=== PATIENT | female | born 1980 | race African-American/Black ===

== ENCOUNTER 2019-07-29 10:03 | Emergency (ER) | payer OTHER, SELFPAY ==
[2019-07-29 10:14] VITALS: BP 131/90; PULSE 92; RESP 16; TEMP 36.3; O2SAT 100
[2019-07-29 10:24] VITALS: O2SAT 99
--- NOTE | 2019-07-29 10:56 | PC.NURSE ---
Report given to oncoming RN, no questions at that time.
--- NOTE | 2019-07-29 12:22 | ED.GENADULT ---
HPI - General Adult General Chief complaint: Upper Respiratory Infection <ANDRÉS Lynne Last Filed: 07/29/19 12:32> Stated complaint: congestion <ANDRÉS Lynne Last Filed: 07/29/19 12:32> Time Seen by Provider: 07/29/19 11:07 <ANDRÉS Lynne Last Filed: 07/29/19 12:32> Source: patient <ANDRÉS Lynne Last Filed: 07/29/19 12:32> Mode of arrival: ambulatory <ANDRÉS Lynne Last Filed: 07/29/19 12:32> Limitations: no limitations <ANDRÉS Lynne Last Filed: 07/29/19 12:32> History of Present Illness HPI narrative: Patient is a 39-year-old female who presents to emergency department for evaluation of congestion rhinorrhea ear pain and sneezing has been present now for the last 2 weeks took amoxicillin initially completed half the course went back to a different care center and is now currently on doxycycline and has 7 days left patient on arrival to emergency department notes some frontal sinus pressure and right ear discomfort denies other URI symptoms or complaints and on arrival to emergency department is in the room in no distress patient denies sick contacts <ANDRÉS Lynne Last Filed: 07/29/19 12:32> Related Data Home medications: Home Medications Medication Instructions Recorded Confirmed amlodipine 07/29/19 doxycycline hyclate 07/29/19 ergocalciferol (vitamin D2) 07/29/19 hydrochlorothiazide 07/29/19 levothyroxine 07/29/19 loratadine mg 07/29/19 oxybutynin chloride 07/29/19 <ANDRÉS Lynne Last Filed: 07/29/19 12:32> Allergies/adverse reactions: Allergies Allergy/AdvReac Type Severity Reaction Status Date / Time No Known Allergies Allergy Unknown Verified 07/29/19 10:21 <ANDRÉS Lynne Last Filed: 07/29/19 12:32> Review of Systems Review of Systems: All systems reviewed & are unremarkable except as noted in HPI and below <ANDRÉS Lynne Last Filed: 07/29/19 12:32> PMFSH Past Medical History Medical History: Medical History (Updated 07/29/19 @ 12:32 by Douglas Chung PA-C) Hypertension <Douglas Chung PA-C - Last Filed: 07/29/19 12:32> Social History Social History: Social History (Updated 07/29/19 @ 12:29 by Douglas Chung PA-C) Smoking status: Never smoker Gender identity (if verbalized by the patient): Female <Douglas Chung PA-C - Last Filed: 07/29/19 12:32> Exam Narrative: Exam Narrative: GENERAL: Well-appearing, well-nourished, and in no acute distress. HEAD: Normocephalic, atraumatic. EYES: PERRLA and EOMI. ENT: Nares clear, no rhinorrhea or epistaxis. Mucous membranes moist. Oropharynx without tonsillar hypertrophy exudate or other lesions. Bilateral TMs pearly cheema nonbulging CHEST: Clear to auscultation. No respiratory distress. No wheezes rales or rhonchi HEART: Regular rate and rhythm. No murmur heard. EXTREMITIES: Normal range of motion. No edema. SKIN: Warm, dry, no rash. NEURO: No focal deficits. Alert and oriented x3. Cranial nerves II through XII grossly intact PSYCH: Normal mood and affect. <Douglas Chung PA-C - Last Filed: 07/29/19 12:32> Course Course Emergency Course: Patient in the room in no distress aware of case findings treatment plan and diagnosis agreeing to follow-up as directed or to return if symptoms worsen or concerns <Douglas Chung PA-C - Last Filed: 07/29/19 12:32> Vital Signs Vital signs: Vital Signs Temperature 97.3 F L 07/29/19 10:14 Pulse Rate 92 07/29/19 10:14 Respiratory Rate 16 07/29/19 10:14 Blood Pressure 131/90 07/29/19 10:14 Pulse Oximetry 100 07/29/19 10:14 Temperature 97.3 F L 07/29/19 10:14 Pulse Rate 73 07/29/19 12:34 Respiratory Rate 18 07/29/19 12:34 Blood Pressure 115/88 07/29/19 12:34 Pulse Oximetry 100 07/29/19 12:34 <Douglas Chung PA-C - Last Filed: 07/29/19 12:32>
[2019-07-29 12:34] VITALS: BP 115/88; PULSE 73; RESP 18; O2SAT 100
== END 2019-07-29 12:39 | disposition home or self-care (01) ==
PROVIDERS: Emergency Provider General Practice; PCP Internal Medicine
DX: J32.9 Chronic sinusitis, unspecified (principal); I10 Essential (primary) hypertension
CPT/HCPCS: 99283

== ENCOUNTER 2019-11-16 16:04 | Emergency (ER) | payer OTHER, SELFPAY ==
[2019-11-16] VITALS (15 sets, daily range): BP systolic 112–151; BP diastolic 72–101; PULSE 67–120; RESP 15–20; TEMP 37.2; O2SAT 98–100
--- NOTE | ~2019-11-16 | XR_ITS ---
EXAMINATION: XR chest 2V DATE: 11/16/2019 16:57 INDICATION: Chest pressure TECHNIQUE: PA and lateral views of the chest are obtained. COMPARISON: 09/08/2008 FINDINGS: The lungs are free of acute opacities. There is no pleural effusion or pneumothorax. The ca rdiomediastinal silhouette is normal. The visualized bones and soft tissues are unremarkable. IMPRESSION: 1. No acute cardiopulmonary abnormality. Reviewed, dictated and finalized at location B.
--- NOTE | 2019-11-16 16:14 | ECG_ITS ---
Measurements Intervals [place] Rate: 106 P: 44 [place]: 160 QRS: 29 QRSD: 99 T: 12 QT: 346 QTc: 460 Interpretive Statements SINUS TACHYCARDIA DELAYED PRECORDIAL R/S TRANSITION BORDERLINE T WAVE ABNORMALITY- DIFFUSE LEADS BASELINE ARTIFACT- AVR, AVF, V3 ABNORMAL ECG Electronically Signed On 11-17-2019 10:16:11 CDT by Preston Edwards D.O.
[2019-11-16 16:24] LABS: Basophils Percent Auto 0.6 % (0.2-1.2); Eosinophils Percent Auto 0.3 % (0-4.4); Hematocrit 36.8 % (37.0-47.0); Hemoglobin 11.7 g/dL (12.0-15.0); Lymphocytes Absolute Auto 2.13 K/mm3 (0.9-3.2); Lymphocytes Percent Auto 33.5 % (18.3-44.2); Mean Corpuscular HGB Conc 31.8 g/dl (32-36); Mean Corpuscular Hemoglobin 26.1 pg (26-34); Mean Corpuscular Volume 82.1 fl (80-100); Mean Platelet Volume 11.4 fl (7.4-10.4); Monocytes Absolute Auto 0.3 K/mm3 (0.1-0.6); Monocytes Percent Auto 5.2 % (2.6-8.5); Neutrophils Absolute Auto 3.8 K/mm3 (1.3-6.7); Neutrophils Percent Auto 60.4 % (45.5-73.1); Platelet Count Result 277 k/mm3 (150-375); Red Blood Count 4.48 M/mm3 (4.2-5.4); Red Cell Distribution Width 15.9 % (11.5-14.5); White Blood Count 6.4 K/mm3 (4.5-10.0)
[2019-11-16 16:35] LABS: INR 1.1; Prothrombin Time 13.5 Seconds (11.1-14.7)
[2019-11-16 16:37] LABS: Anion Gap 9 mmol/L (8-16); Blood Urea Nitrogen 12 mg/dL (7-17); Calcium 8.9 mg/dL (8.4-10.2); Carbon Dioxide 27 mmol/L (22-30); Chloride 102 mmol/L (98-107); Estimated CRCL calculation 89 ml/min; Estimated Glomerular Filt Rate > 60; Glucose 94 mg/dL (65-105); Potassium 3.8 mmol/L (3.4-5.0); Sodium 138 mmol/L (137-145)
[2019-11-16 16:49] LABS: Troponin I < 0.012 ng/mL (0.000-0.034)
[2019-11-16 16:51] LABS: Anisocytosis 2+ (NORMAL); Hypochromasia 1+ (NORMAL); Platelet Estimate Adequate (Adequate)
--- NOTE | 2019-11-16 17:34 | ED.CHESTPAIN ---
HPI - Chest Pain General Chief Complaint: Chest Pain Stated Complaint: shaky, blurred vision Time Seen by Provider: 11/16/19 16:27 Source: patient Mode of arrival: ambulatory Limitations: no limitations History of Present Illness HPI narrative: This patient is a 39 year old female who presents for evaluation of intermittent chest heaviness. She reports she has midsternal nonradiating chest pressure. She states it feels like her GERD that she normally has. She states she was taking omeprazole but she is not taking because her insurance will not cover it. She reports this pain occurs randomly. She denies any chest pain or heaviness now. Her pain is worse with eating. She denies exertional pain. She denies sob, nausea or vomiting. She does report intermittent shakiness. 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] 60 mg PO 11/16/19 Allergies Allergy/AdvReac Type Severity Reaction Status Date / Time No Known Allergies Allergy Unknown Verified 11/16/19 16:15 Review of Systems Review of Systems: All systems reviewed & are unremarkable except as noted in HPI and below Constitutional: Constitutional: Denies chills and Denies fever(s) Cardiovascular: Cardiovascular: Reports chest pain and Denies radiating jaw, neck or arm pain Respiratory: Respiratory: Denies cough and Denies dyspnea Gastrointestinal: Gastrointestinal: Denies abdominal pain, Denies nausea and Denies vomiting Psychiatric: Psychiatric: Reports anxiety PMFSH Past Medical History Medical History (Updated 11/16/19 @ 19:48 by Vicky Gibson MD) Hypertension Hypothyroid Social History Social History (Updated 07/29/19 @ 12:29 by Douglas Chung PA-C) Smoking status: Never smoker Gender identity (if verbalized by the patient): Female Exam Narrative: Exam Narrative: GENERAL: Well-appearing, well-nourished, and in no acute distress. HEAD: Normocephalic, atraumatic EYES: PERRLA and EOMI, THROAT:Mucous membranes moist, Oropharynx normal without erythema, exudate, peritonsillar swelling or fluctuance NECK: Supple, without lymphadenopathy or mass RESPIRATORY: No respiratory distress, Airway patent, Respirations non-labored, Clear to auscultation without rales, rhonchi or wheeze HEART: Regular rate and rhythm. No murmur heard. Normal peripheral pulses. ABDOMEN: Soft, nontender, nondistended, normal active bowel sounds. No masses. No rebound or guarding, No organomegaly. EXTREMITIES: No edema, normal strength with full range of motion. SKIN: Warm, dry, normal color without rash NEURO: Alert and oriented x3. CN 2-12 grossly intact. No focal deficits. PSYCH: Normal mood and affect. Course Vital Signs Vital signs: Vital Signs Temperature 98.9 F 11/16/19 16:09 Pulse Rate 115 H 11/16/19 16:09 Respiratory Rate 20 11/16/19 16:09 Blood Pressure 112/72 11/16/19 16:09 Pulse Oximetry 100 11/16/19 16:09 Temperature 98.9 F 11/16/19 16:09 Pulse Rate 74 11/16/19 17:46 Respiratory Rate 17 11/16/19 17:46 Blood Pressure 116/84 11/16/19 17:46 Pulse Oximetry 99 11/16/19 17:46 MDM - Chest Pain Lab Data Attestation: I reviewed the patient's lab results. Result diagrams: 11/16/19 16:18 11/16/19 16:18 Labs: Lab Results 11/16/19 11/16/19 11/16/19 Range/Units 16:18 16:18 16:18 WBC 6.4 (4.5-10.0) K/mm3 RBC 4.48 (4.2-5.4) M/mm3 Hgb 11.7 L (12.0-15.0) g/dL Hct 36.8 L (37.0-47.0) % MCV 82.1 (80-100) fl MCH 26.1 (26-34) pg MCHC 31.8 L (32-36) g/dl RDW 15.9 H (11.5-14.5) % Plt Count 277 (150-375) k/mm3 MPV 11.4 H (7.4-10.4) fl Immature Gran % (Auto) 0.0 (0-0.5) % Neut % (Auto) 60.4 (45.5-73.1) % Lymph % (Auto)
--- NOTE | 2019-11-16 17:43 | PC.NURSE ---
Called lab to add TITUS
[2019-11-16 17:53] LABS: D Dimer 0.27 ug/mL (<0.48)
[2019-11-16 19:35] LABS: Troponin I < 0.012 ng/mL (0.000-0.034)
== END 2019-11-16 20:01 | disposition home or self-care (01) ==
PROVIDERS: Emergency Medicine; Emergency Provider General Practice
DX: R07.89 Other chest pain (principal); R00.0 Tachycardia, unspecified; I10 Essential (primary) hypertension; E03.9 Hypothyroidism, unspecified
CPT/HCPCS: 36415; 71046; 80048; 84484; 85025; 85380; 85610; 85730; 93005; 99284

== ENCOUNTER 2019-12-09 18:21 | Emergency (ER) | payer OTHER, SELFPAY ==
[2019-12-09 18:23] VITALS: BP 132/99; PULSE 110; RESP 16; TEMP 36.9; O2SAT 100
[2019-12-09 18:52] LABS: Basophils Percent Auto 0.5 % (0.2-1.2); Eosinophils Percent Auto 0.4 % (0-4.4); Hematocrit 36.9 % (37.0-47.0); Hemoglobin 11.7 g/dL (12.0-15.0); Immature Granulocyte Absolute 0.02 K/mm3 (0.00-0.031); Immature Granulocyte Percent A 0.3 % (0-0.5); Lymphocytes Absolute Auto 2.26 K/mm3 (0.9-3.2); Lymphocytes Percent Auto 30.7 % (18.3-44.2); Mean Corpuscular HGB Conc 31.7 g/dl (32-36); Mean Corpuscular Hemoglobin 26.1 pg (26-34); Mean Corpuscular Volume 82.2 fl (80-100); Mean Platelet Volume 11.1 fl (7.4-10.4); Monocytes Absolute Auto 0.4 K/mm3 (0.1-0.6); Neutrophils Absolute Auto 4.6 K/mm3 (1.3-6.7); Neutrophils Percent Auto 62.1 % (45.5-73.1); Platelet Count Result 288 k/mm3 (150-375); Red Blood Count 4.49 M/mm3 (4.2-5.4); Red Cell Distribution Width 16.1 % (11.5-14.5); White Blood Count 7.4 K/mm3 (4.5-10.0)
[2019-12-09 19:00] LABS: Add Urine Microscopic? YES; Appearance Urine Cloudy (Clear); Bacteria Urine 1+ /hpf; Bilirubin Urine Negative (Negative); Color Urine Amber (Yellow); Glucose Urine UA Negative (Negative); Ketones Urine Trace mg/dL (Negative); Leukocyte Esterase Ur 3+ LEU/UL (Negative); Mucus Urine Rare /lpf; Nitrate Urine Negative (Negative); Protein Urine 2+ mg/dL (Negative); Squamous Epithelial Cell Urine Many /hpf (Few); Urobilinogen Urine Negative mg/dL (<2.0); WBC Urine >75 /hpf
[2019-12-09 19:01] LABS: Alanine Aminotransferase 8 U/L (4-35); Albumin Level 4.5 g/dL (3.5-5.1); Alkaline Phosphatase 77 U/L (38-126); Anion Gap 9 mmol/L (8-16); Aspartate Amino Transferase 18 U/L (14-36); Bilirubin,Total 0.9 mg/dL (0.2-1.3); Blood Urea Nitrogen 13 mg/dL (7-17); Calcium 9.4 mg/dL (8.4-10.2); Carbon Dioxide 27 mmol/L (22-30); Chloride 105 mmol/L (98-107); Estimated CRCL calculation 89 ml/min; Estimated Glomerular Filt Rate > 60; Glucose 94 mg/dL (65-105); Lipase 48 U/L (23-300); Potassium 3.8 mmol/L (3.4-5.0); Sodium 141 mmol/L (137-145)
[2019-12-09 19:03] LABS: Blood Urine Negative (Negative); Specific Grav Ur 1.031 (1.001-1.035)
[2019-12-09] MEDS: ONDANSETRON INJ 4 MG/2 ML VIAL IV PUSH (19:46)
[2019-12-09] MEDS: SODIUM CHLORIDE 0.9% IV 1,000 ML 999 ML IV CONT (19:46)
--- NOTE | 2019-12-09 19:55 | ED.ABDPAIN ---
HPI - Abdominal Pain General Chief Complaint: Abdominal Pain Stated Complaint: Abd Pain Time Seen by Provider: 12/09/19 19:04 History of Present Illness HPI narrative: Patient is a 39-year-old female who presents ER with some mild abdominal discomfort. It's periumbilical. Associated with nausea. She notes that she has some dark urine that is abnormal for her. No dysuria or fevers or chills or sweats. She is without flank pain. Patient also reports 2 episodes of diarrhea per day for last 2 days. 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 [employer] Thyroid] 60 mg PO 11/16/19 Allergies Allergy/AdvReac Type Severity Reaction Status Date / Time No Known Allergies Allergy Unknown Verified 12/09/19 18:34 Review of Systems Constitutional: Constitutional: Denies chills, Denies fever(s) and Reports weakness Respiratory: Respiratory: Denies cough and Denies dyspnea Gastrointestinal: Gastrointestinal: Reports abdominal pain, Reports diarrhea, Reports nausea and Denies vomiting Genitourinary: Genitourinary: Denies nocturia, Denies dysuria and Denies flank pain Comments: Dark urine PMFSH Past Medical History Medical History (Updated 12/09/19 @ 19:57 by Shmuel Qureshi MD) Hypertension Hypothyroid Social History Social History (Updated 07/29/19 @ 12:29 by Douglas Chung PA-C) Smoking status: Never smoker Gender identity (if verbalized by the patient): Female Exam Narrative: Exam Narrative: GENERAL: Well-appearing, well-nourished, and in no acute distress. HEAD: Normocephalic, atraumatic. CHEST: Clear to auscultation. No respiratory distress. HEART: Regular rate and rhythm. Normal peripheral pulses. ABDOMEN: Soft, nontender, nondistended, normal active bowel sounds. No CVA tenderness EXTREMITIES: Normal range of motion. No edema. NEURO: Alert and oriented x3. PSYCH: Normal mood and affect. Course Course Emergency Course: Zofran and fluids. Informed of results. Discharge home with antibiotics. Vital Signs Vital signs: Vital Signs Temperature 98.5 F 12/09/19 18:23 Pulse Rate 110 H 12/09/19 18:23 Respiratory Rate 16 12/09/19 18:23 Blood Pressure 132/99 H 12/09/19 18:23 Pulse Oximetry 100 12/09/19 18:23 Temperature 98.5 F 12/09/19 18:23 Pulse Rate 110 H 12/09/19 18:23 Respiratory Rate 16 12/09/19 18:23 Blood Pressure 132/99 H 12/09/19 18:23 Pulse Oximetry 100 12/09/19 18:23 MDM - Abdominal Pain Lab Data Result diagrams: 12/09/19 18:43 12/09/19 18:43 Labs: Lab Results 12/09/19 12/09/19 12/09/19 Range/Units 18:43 18:43 18:43 WBC 7.4 (4.5-10.0) K/mm3 RBC 4.49 (4.2-5.4) M/mm3 Hgb 11.7 L (12.0-15.0) g/dL Hct 36.9 L (37.0-47.0) % MCV 82.2 (80-100) fl MCH 26.1 (26-34) pg MCHC 31.7 L (32-36) g/dl RDW 16.1 H (11.5-14.5) % Plt Count 288 (150-375) k/mm3 MPV 11.1 H (7.4-10.4) fl Immature Gran % (Auto) 0.3 (0-0.5) % Neut % (Auto) 62.1 (45.5-73.1) % Lymph % (Auto) 30.7 (18.3-44.2) % [place] % (Auto) 6.0 (2.6-8.5) % Eos % (Auto) 0.4 (0-4.4) % Baso % (Auto) 0.5 (0.2-1.2) % Lymph # (Auto) 2.26 (0.9-3.2) K/mm3 [place] # (Auto) 0.4 (0.1-0.6) K/mm3 Eos # (Auto) 0.0 (0-0.3) K/mm3 Baso # (Auto) 0.0 (0.0-0.1) K/mm3 Abs Immat Gran (auto) 0.02 (0.00-0.031) K/mm3 Absolute Neuts (auto) 4.6 (1.3-6.7) K/mm3 Absolute Nucleated RBC 0.0 (0.0-0.012) K/mm3 Nucleated RBC % 0.0 (0.0-0.2) % Sodium 141 (137-145) mmol/L Potassium 3.8 (3.4-5.0) mmol/L Chloride 105 (98-107) mmol/L Carbon Dioxide 27 (22-30) mmol/L Anion Gap 9 (8-16) mmol/L BUN 13 (7-17) mg/dL Creatinine 0.80 (0.7-1.0) mg/dL Estim Creat Clear Calc 89 ml/min Estimated GFR > 60 (59 - ) Glucose
[2019-12-09 20:30] VITALS: BP 130/91; PULSE 96; RESP 18; O2SAT 100
== END 2019-12-09 20:45 | disposition home or self-care (01) ==
PROVIDERS: Emergency Medicine; Emergency Provider Emergency Medicine
DX: N39.0 Urinary tract infection, site not specified (principal); I10 Essential (primary) hypertension; E03.9 Hypothyroidism, unspecified
CPT/HCPCS: 36415; 80053; 81001; 81025; 83690; 85025; 87077; 87086; 87088; 87186; 96361; 96374; 99284; J2405; J7030

== ENCOUNTER 2024-10-27 12:13 | Outpatient (CLI) | payer OTHER, SELFPAY ==
--- NOTE | 2024-10-27 | ECG_ITS ---
Test Date: 2024-10-27 13:01:36 Measurements Intervals [place] Rate: 80 P: 49 VT: 147 QRS: 6 QRSD: 93 T: 51 QT: 345 QTc: 399 Interpretive Statements SINUS RHYTHM DELAYED PRECORDIAL R/S TRANSITION NONSPECIFIC ST-T WAVE ABNORMALITY- DIFFUSE LEADS BORDERLINE ECG No previous ECG available for comparison Electronically Signed On 10-27-2024 13:31:49 CDT by Preston Edwards D.O.
--- NOTE | ~2024-10-27 | XR_ITS ---
EXAMINATION: XR chest 2V 10/27/2024 12:48 INDICATION: Chest pain PROCEDURE: 2 view chest COMPARISON: 03/06/2023 FINDINGS: The lungs are clear. The cardiomediastinal silhouette is within normal limits. There are no pleural effusions. There is no pneumothorax suspected. IMPRESSION: 1: NO ACUTE CARDIOPULMONARY DISEASE. Reviewed, dictated and finalized at location A.
--- OUTSIDE RECORDS SUMMARY | 2024-10-27 12:28 | XMS_ITS | Clinical Summary ---
Author Organization [facility] Address [address] [place] [address] Phone Care Team Providers Care Crop Ranch Hand Name Role Phone Juan Geiger MD Primary Care Provider [phone] Hazel Marrufo MD Unavailable Allergies Active Allergy Reactions Criticality Noted Date Comments Diphenhydramine Hives 06/29/2024 Medications amLODIPine (NORVASC) 5 MG Tablet Take 5 mg by mouth daily. Active hydroCHLOROthia zide 25 MG Tablet Take 25 mg by mouth daily. 04/08/2023 Active [place] Thyroid 90 MG Tablet Take 90 mg by mouth daily. Active ergocalciferol (VITAMIN D) 11689 UNIT Capsule TAKE 1 CAPSULE BY MOUTH EVERY WEEK 06/25/2023 Active FeroSul 325 (65 Fe) MG Tablet Take 1 Tablet by mouth 2 times daily. 90 Tablet 1 03/24/2024 Active Active Problems Problem Noted Date Diagnosed Date Iron deficiency anemia, unspecified 10/08/2024 Iron deficiency anemia due to chronic blood loss 07/01/2023 Hypertension Encounters Date Type Department Care Team Description 10/25/2024 1:15 PM CDT Clinical Support [facility] [address] [phone] Iron deficiency anemia, unspecified iron deficiency anemia type (Primary Dx) 10/25/2024 Travel 10/12/2024 Telephone [facility] [address] [phone] Hazel Marrufo MD 10/08/2024 Telephone [facility] [place] [address] [facility] [address] [place] [address] Tracy Li APRN, [facility] call/schedule iron infusion 09/30/2024 3:00 PM CDT Office Visit [facility] [address] [phone] Tracy Li APRN, CUSTOMER EQUIPMENT ENGINEER Iron deficiency anemia due to chronic blood loss (Primary Dx); Abnormal uterine bleeding (AUB) 09/30/2024 2:45 PM CDT Lab [facility] [address] [phone] Lab, Cc [place] Iron deficiency anemia due to chronic blood loss; Abnormal uterine bleeding (AUB) 09/30/2024 Travel 09/27/2024 Telephone [facility] [address] [phone] Hazel Marrufo MD from Last 3 Months Social History Tobacco Use Types Packs/Day Years Used Date Smoking Tobacco: Never Smokeless Tobacco: Never Tobacco Cessation:Counseling Given: Not Answered Alcohol Use Standard Drinks/Week Comments Not Currently 0 (1 standard drink = 0.6 oz pur e alcohol) Comments Unknown Sex and Gender Information Value Date Recorded Sex Assigned at Not on file Legal Sex Female 10:28 AM CDT Gender Identity Not on file Sexual Orientation Not on file Last Filed Vital Signs Vital Sign Reading Time Taken Comments Blood Pressure 142/88 09/30/2024 2:46 PM CDT Pulse 93 09/30/2024 2:46 PM CDT Temperature 36.6 C (97.9 F) 09/30/2024 2:46 PM CDT Respiratory Rate 18 09/30/2024 2:46 PM CDT Oxygen Saturation 99% 09/30/2024 2:46 PM CDT Inhaled Oxygen Concentration - - Weight 98.7 kg (217 lb 11.2 oz) 09/30/2024 2:46 PM CDT Height 162.6 cm (5' 4) 09/30/2024 2:46 PM CDT Body Mass Index 37.37 09/30/2024 2:46 PM CDT Plan of Treatment Upcoming Encounters Date Type Department Care Team (Late st Contact Info) Description 12/30/2024 2:00 PM CDT Lab [facility] [address] [phone] Lab, Cc [facility] 12/30/2024 2:15 PM CDT Office Visit [facility] [address] [phone] Hazel Marrufo MD [address] [place] [phone] Health Maintenance Due Date Last Done Comments Hepatitis C Virus (HCV) Screening 1979 TdaP Immunization 1979 Hepatitis B Immunization (1 of 3 - 19+ 3-dose series) 06/16/1998 Pap Smear 06/16/2000 Human Papillomavirus (HPV) Immunization (1 - 3-dose SCDM series) 06/16/2006 Cervical Cancer Screening (CCS) 06/16/2009 HPV/Cotest 06/16/2009 SARS-COV-2 Immunization ( season) 2023 Cologuard 06/16/2024 Colonoscopy 06/16/2024 Colorectal Cancer Screening 06/16/2024 Immunochemical Fecal Occult Blood 06/16/2024 Influenza Immunization (#1) 2024 Mammogram 03/31/2025 03/31/2024, 03/11, 11/04/2022, Additional history exists Respiratory Syncytial Virus (RSV) Immunization (Adult) (1 - 1-dose 75+ series) 06/16/2054 Discussion re Starting/Frequency of Mammograms Completed 03/31/2024, 11/04/2022, 05/07/2022 Meningococcal Immunization (ACWY) Aged Out No longer eligible based on patient's age to complete this topic Pneumococcal Immunization Combined Aged Out No longer eligible based on patient's age to complete this topic Rotavirus Immunization Aged Out No lo nger eligible based on patient's age to complete this topic Procedures Procedure Name Priority Date/Time Associated Diagnosis Comments CBC WITH AUTO DIFF [place] Routine 09/30/2024 2:37 PM CDT IRON AND TIBC [id number] [place] Routine 09/30/2024 2:37 PM CDT FERRITIN [id number] [place] Routine 09/30/2024 2: 37 PM CDT RETICULOCYTE COUNT (RETIC) Routine 09/30/2024 2:37 PM CDT Iron deficiency anemia due to chronic blood loss Abnormal uterine bleeding (AUB) from Last 3 Months Results * (ABNORMAL) IRON AND TIBC [id number] [place] (09/30/2024 2:37 PM CDT) Iron Bind.Cap.(TIBC) 258 250 - 450 UG/DL [facility]PPORT [facility] UIBC 230 131 - 425 UG/DL [facility]WORK SUPPORT [facility]NAGER [facility] Iron, Serum 28 27 - 159 UG/DL [facility] Iron Saturation 11(L) 15 - 55 % [facility] 09/30/2024 2:37 PM CDT Narrative [facility] - 10/01/2024 10:07 AM CDT TESTING PERFORMED AT: [] [facility], [address] [place] [address], [address], PHONE: [phone], TUBERCULOSIS SPECIALIST: TONY PRETTY, PHD Hazel Marrufo MD LAB SEND OUTS Final Result [facility]PPORT [facility] [place] [address], * FERRITIN [id number] [place] (09/30/2024 2:37 PM CDT) Ferritin, Serum 97 15 - 150 NG/ML [facility]WORK SUPPORT [facility] 09/30/2024 2:37 PM CDT Narrative [facility]WORK SUPPORT [facility]NAGER [facility] - 10/01/2024 10:07 AM CDT TESTING PERFORMED AT: [] [facility], [address] [facility], [place], [address], PHONE: [phone], TUBERCULOSIS SPECIALIST: TONY PRETTY, PHD Hazel Marrufo MD LAB SEND OUTS Final Result [facility]WORK SUPPORT [facility] [address] [place] [address], * (ABNORMAL) CBC WITH AUTO DIFF [place] (09/30/2024 2:37 PM CDT) WBC 5.9 4.0 - 10.0 10*3/uL [facility] SUPPORT [facility] HGB 11.1(L) 11.2 - 15.7 g/dL [facility] SUPPORT [facility]NA[facility] HCT 34.7 34.1 - 44.9 % [facility] NETWORK SUPPORT MANAGER [facility] PLT 281 163 - 369 10*3/uL [facility]WORK SUPPORT [facility]NA[facility] MPV 11.0 9.4 - 12.4 fL [facility] SUPPORT [facility] RBC 3.88(L) 3.93 - 5.22 10*6/uL [facility]WORK SUPPORT MANAGER [facility] MCV 89 79 - 95 fL [facility] NETWORK SUPPORT MANAGER [facility] MCH 28.6 25.6 - 32.2 pg [facility]WORK SUPPORT MANAGER [facility] MCHC 32.0(L) 32.2 - 36.5 g/dL [facility]WORK SUPPORT MANA[facility] RDW 14.6(H) 11.6 - 14.4 % [facility] SUPPORT [facility] Neutrophils % 55.0 36.0 - 66.0 % [facility] SUPPORT [facility] Lymphocytes % 37.6 19.0 - 40.0 % [facility]WORK SUPPORT [facility] Monocytes % 5.4 4.1 - 12.1 % [facility]WORK SUPPORT [facility]NA[facility] Eosinophils % 1.3 0.0 - 3.5 % [facility]WORK SUPPORT [facility] Basophils % 0.5 0.0 - 1.0 % [facility]WORK SUPPORT MANAGER [facility] Absolute Neutrophils 3.3 1.4 - 6.6 10*3/uL [facility]WORK SUPPORT MANAGER [facility] Absolute Lymphocytes 2.2 0.8 - 4.0 10*3/uL [facility] NETWORK SUPPORT MANAGER [facility] Absolute Monocytes 0.3 0.2 - 1.2 10*3/uL [facility] Absolute Eosinophils 0.1 0.0 - 0.4 10*3/uL [facility] Absolute Basophils 0.0 0.0 - 0.1 10*3/uL [facility] 09/30/2024 2:37 PM CDT us Hazel Marrufo MD LAB SEND OUTS Final Result Performing Organization Address [facility] de Phone Number [facility] [place] [address], * RETICULOCYTE COUNT (RETIC) (09/30/2024 2:37 PM CDT) Reticulocyte count 1.59 0.50 - 1.70 % [facility] RET-He 31.10 28.20 - 36.60 pg [facility] Comment: RET-He is a direct assessment of incorporation of iron into erythrocyte hemoglobin. It provides an indirect measure of the iron available for new erythropoiesis over past 2-4 days. Blood 09/30/2024 2:37 PM CDT Narrative [facility] - 09/30/2024 2:45 PM CDT Release to patient->Immediate us Hazel Marrufo MD HEMATOLOGY ORDERABLES Final Resu lt Performing Organization Address [facility] Co de Phone Number [facility] [place] [address], [place] [phone] from Last 3 Months Insurance MEDICAID [facility] [employer] Care Teams Crop [place] Hand Relationship Specialty Start Date End Date Juan Geiger MD [address] [facility] [address] [place] [address] PCP - General Internal Medicine 06/03/23 Hazel Marrufo MD [address] [place] [address] Consulting Physician Oncology 06/03/23
--- OUTSIDE RECORDS SUMMARY | 2024-10-27 12:28 | XMS_ITS | Encounter Summary ---
Author Organization [facility] Address [address] [place] [address] Phone Care Team Providers Care Sample Hand Name Role Phone Juan Geiger MD Primary Care Provider Hazel Marrufo MD Unavailable Encounter Details Date Type Department Care Team (Late st Contact Info) Description 09/27/2024 Telephone [facility] [address] [place] [phone] Hazel Marrufo MD [address] [place] [address] Social History Tobacco Use Types Packs/Day Years Used Date Smoking Tobacco: Never Smokeless Tobacco: Never Comments Unknown Sex and Gender Information Value Date Recorded Sex Assigned at Not on file Legal Sex Female 10:28 AM CDT Gender Identity Not on file Sexual Orientation Not on file documented as of this encounter Functional Status * Question Answer Date of Assessment Author Little interest or pleasure in doing things Not at all 09/30/2024 2:47 PM CDT Gissel Castillo CMA Feeling down, depressed, or hopeless Not at all 09/30/2024 2:47 PM CDT Gissel Castillo CMA * Over the past 2 weeks, how often have you been bothered by any of the following problems? Question Answer Date of Assessment Author Patient Health Questionnaire -2 Score 0 09/30/2024 2:47 PM CDT Gissel Castillo CMA documented as of this encounter Plan of Treatment Upcoming Encounters Date Type Department Care Team (Late st Contact Info) Description 12/30/2024 2:00 PM CDT Lab [facility] [address] [phone] Lab, Cc [facility] 12/30/2024 2:15 PM CDT Office Visit [facility] [address] [phone] Hazel Marrufo MD [address] [place] [phone] documented as of this encounter Visit Diagnoses Not on filedocumented in this encounter Care Teams Sample Hand Relationship Specialty Start Date End Date Juan Geiger MD [address] [facility] [address] [place] [address] PCP - General Internal Medicine 06/03/23 Hazel Marrufo MD [address] [place] [address] Consulting Physician Oncology 06/03/23 documented as of this encounter
--- OUTSIDE RECORDS SUMMARY | 2024-10-27 12:29 | XMS_ITS | Clinical Summary ---
Author Organization [facility] Address [address] [facility] [place] [address] Care Team Providers Care Construction Worker Name Role Phone Juan Geiger MD Primary Care Provider Genie Gan APRN-TAR KETTLE RUNNER Unavailable Source Comments [facility],non-owned Affiliates and Associated Physician Practices is amultiple site organization consisting of ambulatory clinics and hospital sitesin [place], [place], [place] and [place]. This disclosure is being madepursuant to the Care Everywhere program and may not contain all information available regarding this patient. Last updated 17.[facility] Allergies No known active allergies Medications * Be aware that medications may not be up to date on this document. Alwaysverify current medications with the patient. vitamin D, ergocalciferol, (DRISDOL) 09626 UNITS capsuleIndicati ons:Hypovitamin osis D Take 1 (one) capsule by mouth every 7 days 8 Active loratadine (CLARITIN) 10 MG tablet Take 1 (one) tablet by mouth once daily 1 Active amLODIPine (Norvasc) 5 MG tablet amlodipine 5 mg tablet TAKE 1 TABLET BY MOUTH EVERY DAY Active [place] Thyroid 90 MG tablet Take 1 (one) tablet by mouth once daily 2 Active hydroCHLOROthia zide (Hydrodiuril) 25 MG tablet Take 1 (one) tablet by mouth once daily 4 Active fluticasone propionate (Flonase) 50 MCG/ACT nasal spray SHAKE LIQUID AND USE 1 SPRAY IN EACH NOSTRIL EVERY DAY Active oxyBUTYnin CR 24hr (Ditropan-XL) 10 MG tablet Take 1 (one) tablet by mouth once daily 90 tablet 3 4 Active Active Problems Problem Noted Date Diagnosed Date Hypertensive disorder 03/23/2014 Hypothyroidism 03/23/2014 Obesity 03/23/2014 Urinary incontinence 03/23/2014 Family History Medical History Relation Name Comments CAD (Coronary Artery Disease) Brother Cancer - Breast Maternal Aunt Cancer - Uterine Maternal Grandmother Thyroid Disease Mother Relation Name Status Comments Brother Alive Maternal Aunt Alive Maternal Grandmother Mother Social History Tobacco Use Types Packs/Day Years Used Date Smoking Tobacco: Never Smokeless Tobacco: Never Tobacco Cessation:Counseling Given: No Alcohol Use Standard Drinks/Week Comments No 0 (1 standard drink = 0.6 oz pur e alcohol) Comments No Sex and Gender Information Value Date Recorded Sex Assigned at Not on file Legal Sex Female 10:03 AM SUPERVISOR TREATING AND PUMPING Gender Identity Not on file Sexual Orientation Not on file Last Filed Vital Signs Vital Sign Reading Time Taken Comments Blood Pressure 128/88 03/31/2024 11:01 AM SUPERVISOR TREATING AND PUMPING Pulse 64 03/31/2024 11:01 AM SUPERVISOR TREATING AND PUMPING Temperature 37.4 C (99.3 F) 11/24/2023 9:33 AM CDT Respiratory Rate 18 03/31/2024 11:01 AM SUPERVISOR TREATING AND PUMPING Oxygen Saturation 100% 03/31/2024 11:01 AM SUPERVISOR TREATING AND PUMPING Inhaled Oxygen Concentration - - Weight 98.4 kg (217 lb) 03/31/2024 11:01 AM SUPERVISOR TREATING AND PUMPING Height 162.6 cm (5' 4) 03/31/2024 10:21 AM SUPERVISOR TREATING AND PUMPING Body Mass Index 37.25 03/31/2024 10:21 AM SUPERVISOR TREATING AND PUMPING Plan of Treatment Health Maintenance Due Date Last Done Comments COLOGPGAE (AGES 45-75) - COL ON CA SCREENING 1979 COLON MONITORING 1979 COLONOSCOPY - COLON CA SCREENING 1979 CT COLONOGRAPHY - COLON CA SCREENING 1979 Colorectal Cancer Screening 1979 FIT - COLON CA SCREENING 1979 FLEX SIG - COLON CA SCREENING 1979 LIPID TESTING 1979 HIV SCREENING 06/16/1994 HEPATITIS C SCREENING 06/12/1997 DTAP/TDAP/TD VACCINES (1 - Tdap) 06/16/1998 HEPATITIS B VACCINE (1 of 3 - 19+ 3-dose series) 06/16/1998 HPV VACCINE (1 - 3-dose SCDM series) 06/16/2006 COVID-19 VACCINE (1 - 2023-2 5 season) 2023 SCREENING FOR DIABETES 11/17/2023 DEPRESSION SCREENING 03/10/2024 INFLUENZA VACCINE (#1) 2024 PAP SMEAR 07/22/2025 07/22/2022, 07/22/2022 MAMMOGRAM 03/31/2026 03/31/2024, 11/04/2022 ZOSTER VACCINE (1 of 2) 06/16/2029 HIB VACCINE Aged Out No longer eligi ble based on patient's age to complete this topic MENINGOCOCCAL (Group B) VACCINE SHARED DECISION-MAKING Aged Out No longer eligible based on patient's age to complete this topic MENINGOCOCCAL GROUPS A/C/Y/W VACCINE Aged Out No longer eligible b ased on patient's age to complete this topic PNEUMOCOCCAL VACCINE Aged Out No long er eligible based on patient's age to complete this topic Procedures Procedure Name Priority Date/Time Associated Diagnosis Comments MAMMO BILAT DIAGNOSTIC W [place] Routine 03/31/2024 10:33 AM SUPERVISOR TREATING AND PUMPING Abnormal mammogram from Last 3 Months or Most Recently Relevant to Health Maintenance Results * Mammo Bilat Diagnostic W [place] (03/31/2024 10:33 AM SUPERVISOR TREATING AND PUMPING) Anatomical Region Laterality Modality Breast Bilateral Mammography 03/31/2024 10:4 8 AM SUPERVISOR TREATING AND PUMPING Impressions 03/31/2024 11:00 AM SUPERVISOR TREATING AND PUMPING IMPRESSION: 1.Right breast mass at the 11:00 position 3 cm from the nipple is benign. 2.No suspicious mammographic finding in either breast. OVERALL FINAL ASSESSMENT: BI-RADS Category 2: Benign. Annual screening mammography is recommended. > Interpreting Provider: aMndo Beasley MD on 03/31/2024 11:00 AM Narrative 03/31/2024 11:00 AM SUPERVISOR TREATING AND PUMPING EXAMINATION: BILATERAL DIGITAL DIAGNOSTIC MAMMOGRAM INCLUDING CAD AND BILATERAL DIGITAL BREAST TOMOSYNTHESIS; RIGHT BREAST SONOGRAM HISTORY: 43-year-old asymptomatic woman presents for short-term follow-up imaging of a probably benign right breast mass which was initially evaluated at an outside facility with diagnostic ultrasound October 04, 2021. COMPARISON: Comparison is made to mammograms dating back to August 23, 2019 and to ultrasounds dating back to October 04, 2021. TECHNIQUE: Full field digital mammographic views of BOTH breasts were performed, including computer aided detection (CAD) and BILATERAL digital breast tomosynthesis (DBT). Directed ultrasound evaluation of the RIGHT breast was performed. BREAST PARENCHYMAL COMPOSITION: There are scattered areas of fibroglandular density. MAMMOGRAM FINDINGS: There is no new suspicious abnormality in either breast. There has been no significant interval change. SONOGRAM FINDINGS: Ultrasound evaluation of the right breast at the 11:00 position 3 cm from the nipple shows an unchanged 4 mm x 2 mm x 4 mm oval hypoechoic mass which has demonstrated greater than 2 years of sonographic stability, therefore benign. There is also a benign cyst in the adjacent breast parenchyma. There is no suspicious cystic or solid mass. Syl Deluca SENIOR LANDSCAPE ARCHITECT-TAR KETTLE RUNNER MAMMO ORDERABLES Final Re sult from Last 3 Months or Most Recently Relevant to Health Maintenance Insurance Care Teams Construction Worker Relationship Specialty Start Date End Date Juan Geiger MD [address] [phone] PCP - General 01/17/20 Genie Gan, SENIOR LANDSCAPE ARCHITECT-TAR KETTLE RUNNER [address] [place] [phone] Nurse Practitioner 11/01/21
== END 2024-10-27 12:14 | disposition home or self-care (01) ==
DX: R07.9 Chest pain, unspecified (principal); R94.31 Abnormal electrocardiogram [ECG] [EKG]
CPT/HCPCS: 71046; 93005

== ENCOUNTER 2024-11-08 16:26 | Emergency (ER) | payer SELFPAY ==
[2024-11-08 16:38] VITALS: BP 135/85; PULSE 83; RESP 20; TEMP 36.8; O2SAT 99
--- NOTE | 2024-11-08 17:01 | ED_ITS ---
HPI - General Adult General Chief complaint: Upper Respiratory Infection Stated complaint: feel like water in nose Source: patient Mode of arrival: ambulatory Limitations: no limitations History of Present Illness HPI narrative: Patient presents for evaluation of increased salavation and sensation of acid reflux. Symptom onset 2 days ago. She states right around that time she was started on pantoprazole 20 mg daily. She does eat a lot of greasy and fried food. She states that symptoms are worse when she lays down. She has periods of time where it feels like she has regurgitation into her nose when she lays down. She denies sore throat, otalgia, headache, difficulty swallowing foods/liquids, cough or SOB. Related Data Home Medications ?Medication ?Instructions ?Recorded ?Confirmed ?Last Taken ?Type amlodipine 5 mg tablet 5 mg PO 07/29/19 Unknown Hi story hydrochlorothiazide 12.5 mg capsule 12.5 mg PO 0 Unknown History omeprazole 20 mg capsule,delayed 20 mg PO 11/16/19 Un known History release thyroid (pork) 60 mg tablet (BLENDER SNUFF 60 mg PO 11/16/19 Unk nown History Thyroid) Allergies Allergy/AdvReac Type Severity Reaction Status Date / Time No Known Allergies Allergy Unknown Verified 12/09/19 18:34 Review of Systems Review of Systems: CONSTITUTIONAL: Denies fever, chills, or sweats. EYES: Denies visual changes, redness, or discharge. ENT:Reports increased salivation and sensation of regurgitation of saliva into her nose when laying down. Denies sore throat, otalgia or difficulty swallowing food/fluids. CARDIOVASCULAR: Denies chest pain, palpitations, or edema. RESPIRATORY: Denies cough or dyspnea. GASTROINTESTINAL: Denies abdominal pain, nausea, vomiting, or diarrhea. GENITOURINARY: Denies dysuria or hematuria. SKIN: Denies rash or itching. MUSCULOSKELETAL: Denies back pain, joint pain, or myalgia. NEUROLOGIC: Denies headache, numbness, dizziness, or weakness. PSYCHIATRIC: Denies anxiety or depression. [facility] Past Medical History Medical History Hypothyroid Hypertension Surgical History Surgical History History of Family History Family History Mother Family history non-contributory Social History Social History (Reviewed 11/08/24 @ 17:06 by Efrain Daly, [facility], ) Smoking status: Never smoker Gender identity (if verbalized by the patient): Female Spiritual care concerns: No Exam Narrative: GENERAL: Well-appearing, well-nourished, and in no acute distress. HEAD: Normocephalic, atraumatic. EYES: PERRLA and EOMI. ENT: Nares clear, no rhinorrhea or epistaxis. Mucous membranes moist. Oropharynx without tonsillar hypertrophy exudate or other lesions. Bilateral TMs pearly cheema nonbulging NECK: Supple. No adenopathy or masses. No carotid bruits or JVD CHEST: Clear to auscultation. No respiratory distress. No wheezes rales or rhonchi HEART: Regular rate and rhythm. No murmur heard. Normal peripheral pulses. ABDOMEN: Soft, nontender, nondistended, normal active bowel sounds. EXTREMITIES: Normal range of motion. No edema. SKIN: Warm, dry, no rash. NEURO: No focal deficits. Alert and oriented x3. PSYCH: Normal mood and affect. Course Course Emergency Course: This is a 44-year-old female who presented for evaluation of increased elevation irritation of saliva consistent with GERD. Will increase her pantoprazole from 20 mg daily to 40 mg daily. Advised on foods which could cause worsening of her symptoms advised her to follow a bland diet. She should follow-up with ENT to ensure resolution of rhinorrhea, which sounds to be related to reflux. She has not have headache recent facial trauma to suggest CSF leak. In the event that she does developed headache, she should go to the emergency department. Patient in agreement with plan of care. Level of Care: Express Care Visit Vital Signs Vital signs: Vital Signs Temperature 36.8 C 11/08/24 16:38 Pulse Rate 83 11/08/24 16:38 Respiratory Rate 20 11/08/24 16:38 Blood Pressure 135/85 11/08/24 16:38 Pulse Oximetry 99 11/08/24 16:38 Oxygen Delivery Room Air 11/08/24 16:38 Temperature 36.8 C 11/08/24 16:38 Pulse Rate 83 11/08/24 16:38 Respiratory Rate 11/08/24 16:38 Blood Pressure 135/85 11/08/24 16:38 Pulse Oximetry 99 11/08/24 16:38 Oxygen Delivery Room Air 11/08/24 16:38 Medical Decision Making Vital Signs Vital Signs: Vital Signs Temperature 36.8 C 11/08/24 16:38 Pulse Rate 83 11/08/24 16:38 Respiratory Rate 20 11/08/24 16:38 Blood Pressure 135/85 11/08/24 16:38 Pulse Oximetry 99 11/08/24 16:38 Oxygen Delivery Room Air 11/08/24 16:38 Temperature 36.8 C 11/08/24 16:38 Pulse Rate 83 11/08/24 16:38 Respiratory Rate 11/08/24 16:38 Blood Pressure 135/85 11/08/24 16:38 Pulse Oximetry 99 11/08/24 16:38 Oxygen Delivery Room Air 11/08/24 16:38 Discharge Plan Discharge Clinical Impression: GERD (gastroesophageal reflux disease) Patient Disposition: Home Condition: Stable Instructions: Antibiotic Form, GERD (Gastroesophageal Reflux Disease) (DC) Additional Instructions: PLEASE FOLLOW UP WITH EAR NOSE AND THROAT DOCTOR IF YOU HAVE ANY HEADACHES, PLEASE GO TO THE ER Patient Language: Arabic Prescriptions: New pantoprazole 40 mg tablet,delayed release (DR/EC) 40 mg PO QAM 30 Days Qty: 30 0RF phenylephrine HCl 10 mg tablet 10 mg PO Q4-6H PRN (Reason: nasal congestion) Qty: 20 0RF No Action amlodipine 5 mg tablet 5 mg PO hydrochlorothiazide 12.5 mg capsule 12.5 mg PO thyroid (pork) [BLENDER SNUFF Thyroid] 60 mg tablet 60 mg PO omeprazole 20 mg capsule,delayed release(DR/EC) 20 mg PO ondansetron 4 mg tablet,disintegrating 4 mg PO Q6H PRN (Reason: nausea and vomiting) Qty: 10 0RF cephalexin [Keflex] 500 mg capsule 500 mg PO Q8H Qty: 30 0RF Follow-up/Referrals: Fely,Juan [Other] Gume Menendez MD [Physician, Ear, Nose, Throat] Time of Disposition: 17:01
== END 2024-11-08 17:20 | disposition home or self-care (01) ==
PROVIDERS: Emergency Provider Nurse Practitioner
DX: K21.9 Gastro-esophageal reflux disease without esophagitis (principal); I10 Essential (primary) hypertension; E03.9 Hypothyroidism, unspecified
CPT/HCPCS: 99213; G0463

== ENCOUNTER 2024-11-19 01:06 | Emergency (ER) | payer SELFPAY ==
--- OUTSIDE RECORDS SUMMARY | 2008-09-20 09:00 | XMS_ITS | Continuity of Care Document ---
Author Organization [facility] Address [address] [place] [address] [address] [place] [address] Phone Care Team Providers Care Motel Manager Name Role Phone Dago Melendez Unavailable Unavailable Procedures Procedure Date Eye Exam & Treatment Office/outpatient Visit, Est Eye Exam, New Patient Advance Directives Directive Yes / No Effective Date File Name No Information Encounters Encounter Description Practice Location Reason(s) For Visit Diagnoses Date Provider Providers Copied on Encounter [facility], [address] [place] [address] [address], [place], [place], [id number], [place] tel:[phone] [facility] No Information 9 Krishnasamy Dago. [address] [address], [place], [place], [facility], [place]. tel:[phone] Office/outpat ient Visit, Est [facility], [address] [place] [address] [address], [place], [place], [id number], [place] tel:[phone] [facility] No Information 5-200 8 Krishnasamy Dago. [address] [facility] [address], [place], [address], [place]. tel:[phone] [facility], [address] [place] [address] [address], [place], [place], [id number], [place] tel:[phone] [facility] No Information 4200 8 Krishnasamy Dago. [address] [facility] [address], [place], [address], [place]. tel:[phone] Family History Family Member Type Diagnosis Age At Onset No Information Payers Payer name Insurance type Covered constitution party ID Authoriza timona(s) Medicaid [facility] [id number] Social History Type Description Quantity Date Captured [...]
--- OUTSIDE RECORDS SUMMARY | 2008-09-20 09:00 | XMS_ITS | Continuity of Care Document ---
Author Organization [facility] Address [address] [place] [address] [address] [place] [address] Phone Care Team Providers Care Hvac Journeyman Name Role Phone Dago Melendez Unavailable Unavailable Procedures Procedure Date Eye Exam & Treatment Office/outpatient Visit, Est Eye Exam, New Patient Advance Directives Directive Yes / No Effective Date File Name No Information Encounters Encounter Description Practice Location Reason(s) For Visit Diagnoses Date Provider Providers Copied on Encounter [facility], [address] [place] [address] [address], [place], [place], [id number], [place] tel:[phone] [facility][note 3] No Information 9 Krishnasamy Dago. [address] [address], [place], [place], [facility], [place]. tel:[phone] Office/outpat ient Visit, Est [facility], [address] [place] [address] [address], [place], [place], [id number], [place] tel:[phone] [facility][note 3] No Information 5-200 8 Krishnasamy Dago. [address] [facility] [address], [place], [address], [place]. tel:[phone] [facility], [address] [place] [address] [address], [place], [place], [id number], [place] tel:[phone] [facility][note 3] No Information 4200 8 Krishnasamy Dago. [address] [facility] [address], [place], [address], [place]. tel:[phone] Family History Family Member Type Diagnosis Age At Onset No Information Payers Payer name Insurance type Covered republican ID Authoriza timona(s) Medicaid [facility] [id number] Social History Type Description Quantity Date Captured [...]
--- OUTSIDE RECORDS SUMMARY | 2024-11-19 01:09 | XMS_ITS | Clinical Summary ---
Author Organization [facility] Address [address] [place] [address] Phone Care Team Providers Care Blanket Folder Name Role Phone Juan Geiger MD Primary Care Provider [phone] Hazel Marrufo MD Unavailable Allergies Active Allergy Reactions Criticality Noted Date Comments Diphenhydramine Hives 06/29/2024 Medications amLODIPine (NORVASC) 5 MG Tablet Take 5 mg by mouth daily. Active hydroCHLOROthia zide 25 MG Tablet Take 25 mg by mouth daily. 04/08/2023 Active [place] Thyroid 90 MG Tablet Take 90 mg by mouth daily. Active ergocalciferol (VITAMIN D) 37324 UNIT Capsule TAKE 1 CAPSULE BY MOUTH [...] CDT Clinical Support [facility] [address] [address] Iron deficiency anemia, unspecified iron deficiency anemia type (Primary Dx) 10/25/2024 Travel 10/12/2024 Telephone [facility] [address] [phone] Hazel Marrufo MD 10/08/2024 Telephone [facility] [place] [address] [facility] [address] [place] [address] Tracy Li APRN, BR[facility] call/schedule iron infusion 09/30/2024 3:00 PM CDT Office Visit [facility] [address] [phone] Tracy Li APRN, HISTOLOGIC AIDE Iron deficiency anemia due to chronic blood loss (Primary Dx); Abnormal uterine bleeding (AUB) 09/30/2024 2:45 PM CDT Lab [facility] [address] [phone] Lab, Cc [place] Iron deficiency anemia due to chronic blood loss; Abnormal uterine bleeding (AUB) 09/30/2024 Travel 09/27/2024 Telephone [facility] [address] [phone] Hazel Marrufo MD from Last 3 Months [...] PM CDT Lab [facility] [address] [address] Lab, Cc [facility] 12/30/2024 2:15 PM CDT Office Visit [facility] [address] [address] Hazel Marrufo MD [address] [place] [address] Health Maintenance Due Date Last Done Comments Hepatitis C Virus (HCV) Screening 1980 TdaP Immunization 1979 Hepatitis B Immunization (1 of 3 - 19+ 3-dose series) 06/16/1998 Pap Smear 06/16/2000 Human Papillomavirus (HPV) Immunization (1 - 3-dose SCDM series) 06/16/2006 Cervical Cancer Screening (CCS) 06/16/2009 HPV/Cotest 06/16/2009 Cologuard 06/16/2024 Colonoscopy 06/16/2024 Colorectal Cancer Screening 06/16/2024 Immunochemical Fecal Occult Blood 06/16/2024 Influenza Immunization (#1) 2024 SARS-COV-2 Immunization ( season) 2024 Mammogram 03/31/2025 03/31/2024, 03/11, 11/04/2022, Additional [...] 09/30/2024 2:37 PM CDT IRON AND TIBC [id number] [place] Routine 09/30/2024 2:37 PM CDT FERRITIN [id number] [place] Routine 09/30/2024 2: 37 PM CDT RETICULOCYTE COUNT (RETIC) Routine 09/30/2024 2:37 PM CDT Iron deficiency anemia due to chronic blood loss Abnormal uterine bleeding (AUB) from Last 3 Months Results * (ABNORMAL) IRON AND TIBC [id number] [place] (09/30/2024 2:37 PM CDT) Iron Bind.Cap.(TIBC) 258 250 - 450 UG/DL CANCER MANAGER CORPORATE RESPONSIBILITY [facility] UIBC 230 131 - 425 UG/DL CANCER MANAGER CORPORATE RESPONSIBILITY [facility] Iron, Serum 28 27 - 159 UG/DL [facility] Iron Saturation 11(L) 15 - 55 % [facility] 09/30/2024 2:37 PM CDT Narrative [facility] - 10/01/2024 10:07 AM CDT TESTING PERFORMED AT: [] [facility], [address] [place] [address], [address], PHONE: [phone], SHAFT SINKER: TONY PRETTY, PHD Hazel Marrufo MD LAB SEND OUTS Final Result CANCER MANAGER CORPORATE RESPONSIBILITY [facility] [place] [address], * FERRITIN [id number] [place] (09/30/2024 2:37 PM CDT) Ferritin, Serum 97 15 - 150 NG/ML CANCER MANAGER CORPORATE RESPONSIBILITY [facility] 09/30/2024 2:37 PM CDT Narrative CANCER MANAGER CORPORATE RESPONSIBILITY [facility] - 10/01/2024 10:07 AM CDT TESTING PERFORMED AT: [] [facility], [address] [facility], [place], [address], PHONE: [phone], SHAFT SINKER: TONY PRETTY, PHD Hazel Marrufo MD LAB SEND OUTS Final Result CANCER MANAGER CORPORATE RESPONSIBILITY [facility] Alexis Delisa[place] [address], * (ABNORMAL) CBC WITH AUTO DIFF [place] (09/30/2024 2:37 PM CDT) WBC 5.9 4.0 - 10.0 10*3/uL CANCER MANAGER CORPORATE RESPONSIBILITY [facility] HGB 11.1(L) 11.2 - 15.7 g/dL CANCER MANAGER CORPORATE RESPONSIBILITY [facility] HCT 34.7 34.1 - 44.9 % CANCER MANAGER CORPORATE RESPONSIBILITY [facility] PLT 281 163 - 369 10*3/uL CANCER MANAGER CORPORATE RESPONSIBILITY [facility] MPV 11.0 9.4 - 12.4 fL CANCER MANAGER CORPORATE RESPONSIBILITY [facility] RBC 3.88(L) 3.93 - 5.22 10*6/uL CANCER MANAGER CORPORATE RESPONSIBILITY [facility] MCV 89 79 - 95 fL CANCER MANAGER CORPORATE RESPONSIBILITY [facility] MCH 28.6 25.6 - 32.2 pg CANCER MANAGER CORPORATE RESPONSIBILITY [facility] MCHC 32.0(L) 32.2 - 36.5 g/dL CANCER MANAGER CORPORATE RESPONSIBILITY [facility] RDW 14.6(H) 11.6 - 14.4 % CANCER MANAGER CORPORATE RESPONSIBILITY [facility] Neutrophils % 55.0 36.0 - 66.0 % CANCER MANAGER CORPORATE RESPONSIBILITY [facility] Lymphocytes % 37.6 19.0 - 40.0 % CANCER MANAGER CORPORATE RESPONSIBILITY [facility] Monocytes % 5.4 4.1 - 12.1 % CANCER MANAGER CORPORATE RESPONSIBILITY [facility] Eosinophils % 1.3 0.0 - 3.5 % CANCER MANAGER CORPORATE RESPONSIBILITY [facility] Basophils % 0.5 0.0 - 1.0 % CANCER MANAGER CORPORATE RESPONSIBILITY [facility] Absolute Neutrophils 3.3 1.4 - 6.6 10*3/uL CANCER MANAGER CORPORATE RESPONSIBILITY [facility] Absolute Lymphocytes 2.2 0.8 - 4.0 10*3/uL CANCER MANAGER CORPORATE RESPONSIBILITY [facility] Absolute Monocytes 0.3 0.2 - 1.2 10*3/uL [facility] Absolute Eosinophils 0.1 0.0 - 0.4 10*3/uL [facility] Absolute Basophils 0.0 0.0 - 0.1 10*3/uL [facility] 09/30/2024 2:37 PM CDT us Hazel Marrufo MD LAB SEND OUTS Final Result Performing Organization Address [facility] de Phone Number [facility] [place] [address], * RETICULOCYTE COUNT (RETIC) (09/30/2024 2:37 PM CDT) Reticulocyte count 1.59 0.50 - 1.70 % [facility] RET-He 31.10 28.20 - 36.60 pg [facility] Comment: RET-He is a direct assessment of incorporation of iron into erythrocyte hemoglobin. It provides an indirect measure of the iron available for new erythropoiesis over past 2-4 days. Blood 09/30/2024 2:[address] [facility] - 09/30/2024 2:45 PM CDT Release to patient->Immediate us Hazel Marrufo MD HEMATOLOGY ORDERABLES Final Resu lt Performing Organization Address [facility] Co de Phone Number [facility] [place] [place] [address], [place] [phone] from Last 3 Months Insurance MEDICAID [employer] Care Teams Blanket Folder Relationship Specialty Start Date End Date Juan Geiger MD [address] [facility] [address] [place] [address] PCP - General Internal Medicine 06/03/23 Hazel Marrufo MD [address] [place] [address] Consulting Physician Oncology 06/03/23
--- OUTSIDE RECORDS SUMMARY | 2024-11-19 01:09 | XMS_ITS | Clinical Summary ---
Author Organization [facility] Address [address] [place] [address] Care Team Providers Care Business Line Manager Name Role Phone Juan Geiger MD Primary Care Provider [phone] Genie Gan APRN-RETAIL CHAIN STORE AREA SUPERVISOR Unavailable Source Comments [facility],non-owned Affiliates and Associated Physician Practices is amultiple site organization consisting of ambulatory clinics and hospital sitesin [place], [place], [place] and [place]. This disclosure is being madepursuant to the Care Everywhere program and may not contain all information available regarding this patient. Last updated 17.[facility] Allergies No known active allergies Medications * Be aware that medications may not be up to date on this document. Alwaysverify current medications with the patient. vitamin D, ergocalciferol, (DRISDOL) 81762 UNITS capsuleIndicati ons:Hypovitamin osis D Take 1 (one) capsule by mouth every 7 days 8 Active loratadine (CLARITIN) 10 MG tablet Take 1 (one) tablet by mouth once daily 1 Active amLODIPine (Norvasc) 5 MG tablet amlodipine 5 mg tablet TAKE 1 TABLET BY MOUTH EVERY DAY Active [place] Thyroid 90 MG tablet Take 1 (one) [...] on file Legal Sex Female 10:03 AM DATABASE ADMINISTRATION ASSOCIATE Gender Identity Not on file Sexual Orientation Not on file Last Filed Vital Signs Vital Sign Reading Time Taken Comments Blood Pressure 128/88 03/31/2024 11:01 AM DATABASE ADMINISTRATION ASSOCIATE Pulse 64 03/31/2024 11:01 AM DATABASE ADMINISTRATION ASSOCIATE Temperature 37.4 C (99.3 F) 11/24/2023 9:33 AM CDT Respiratory Rate 18 03/31/2024 11:01 AM DATABASE ADMINISTRATION ASSOCIATE Oxygen Saturation 100% 03/31/2024 11:01 AM DATABASE ADMINISTRATION ASSOCIATE Inhaled Oxygen Concentration - - Weight 98.4 kg (217 lb) 03/31/2024 11:01 AM DATABASE ADMINISTRATION ASSOCIATE Height 162.6 cm (5' 4) 03/31/2024 10:21 AM DATABASE ADMINISTRATION ASSOCIATE Body Mass Index 37.25 03/31/2024 10:21 AM DATABASE ADMINISTRATION ASSOCIATE Plan of Treatment Health Maintenance Due Date Last Done Comments COLOGPAGE (AGES 45-75) - COL ON CA SCREENING [...] VACCINE (1 - 3-dose SCDM series) 06/16/2006 SCREENING FOR DIABETES 11/17/2023 DEPRESSION SCREENING 03/10/2024 COVID-19 VACCINE (1 - 2023-2 5 season) 2024 INFLUENZA VACCINE (#1) 2024 PAP SMEAR 07/22/2025 [...] DIAGNOSTIC W [place] Routine 03/31/2024 10:33 AM DATABASE ADMINISTRATION ASSOCIATE Abnormal mammogram from Last 3 Months or Most Recently Relevant to Health Maintenance Results * Mammo Bilat Diagnostic [place] (03/31/2024 10:33 AM DATABASE ADMINISTRATION ASSOCIATE) Anatomical Region Laterality Modality Breast Bilateral Mammography 03/31/2024 10:4 8 AM DATABASE ADMINISTRATION ASSOCIATE Impressions 03/31/2024 11:00 AM DATABASE ADMINISTRATION ASSOCIATE IMPRESSION: 1.Right breast mass at the 11:00 position 3 cm from the nipple is benign. 2.No suspicious mammographic finding in either breast. OVERALL FINAL ASSESSMENT: BI-RADS Category 2: Benign. Annual screening mammography is recommended. > Interpreting Provider: Mando Beasley MD on 03/31/2024 11:00 AM Narrative 03/31/2024 11:00 AM DATABASE ADMINISTRATION ASSOCIATE EXAMINATION: BILATERAL DIGITAL DIAGNOSTIC MAMMOGRAM INCLUDING CAD [...] suspicious cystic or solid mass. Syl Deluca DB2 DBA-RETAIL CHAIN STORE AREA SUPERVISOR MAMMO ORDERABLES Final Re sult from Last 3 Months or Most Recently Relevant to Health Maintenance Insurance Care Teams Business Line Manager Relationship Specialty Start Date End Date Juan Geiger MD [address] [address] PCP - General 01/17/20 Genie Gan, DB2 DBA-RETAIL CHAIN STORE AREA SUPERVISOR [address] [place] [phone] Nurse Practitioner 11/01/21
--- OUTSIDE RECORDS SUMMARY | 2024-11-19 01:09 | XMS_ITS | Encounter Summary ---
Author Organization [facility] Address [address] [place] [address] Phone Care Team Providers Care Magazine Hand Name Role Phone Juan Geiger MD Primary Care Provider [phone] Hazel Marrufo MD Unavailable Encounter Details Date Type Department Care Team (Late st Contact Info) Description 09/27/2024 Telephone [facility] [address] [place] [address] Hazel Marrufo MD [address] [place] [address] Social History Tobacco Use Types [...] PM CDT Lab [facility] [address] [phone] Lab, Cc [facility] 12/30/2024 2:15 PM CDT Office Visit [facility] [address] [phone] Hazel Marrufo MD [address] [place] [address] documented as of this encounter Visit Diagnoses Not on filedocumented in this encounter Care Teams Magazine Hand Relationship Specialty Start Date End Date Juan Geiger MD [address] [facility] [address] [place] [address] PCP - General Internal Medicine 06/03/23 Hazel Marrufo MD [address] [place] [address] Consulting Physician Oncology 06/03/23 documented as of this encounter
[2024-11-19 01:10] VITALS: BP 139/79; PULSE 80; RESP 18; TEMP 36.8; O2SAT 98
--- OUTSIDE RECORDS SUMMARY | 2024-11-19 02:57 | XMS_ITS | Encounter Summary ---
Author Organization [facility] Address [address] [place] [address] Phone Care Team Providers Care Vp Of Marketing Name Role Phone Juan Geiger MD Primary Care Provider [phone] Hazel Marrufo MD Unavailable Encounter Details Date Type Department Care Team (Late st Contact Info) Description 09/27/2024 Telephone [facility] [address] [place] [address] Hazel Marrufo MD [address] [place] [address] Social History Tobacco Use Types [...] PM CDT Lab [facility] [address] [phone] Lab, Cc [facility] 12/30/2024 2:15 PM CDT Office Visit [facility] [address] [phone] Hazel Marrufo MD [address] [place] [address] documented as of this encounter Visit Diagnoses Not on filedocumented in this encounter Care Teams Vp Of Marketing Relationship Specialty Start Date End Date Juan Geiger MD [address] [facility] [address] [place] [address] PCP - General Internal Medicine 06/03/23 Hazel Marrufo MD [address] [place] [address] Consulting Physician Oncology 06/03/23 documented as of this encounter
--- OUTSIDE RECORDS SUMMARY | 2024-11-19 02:57 | XMS_ITS | Clinical Summary ---
Author Organization [facility] Address [address] [place] [address] Care Team Providers Care Veterinary Technician Assistant Name Role Phone Juan Geiger MD Primary Care Provider Genie Gan APRN-CANDLE WRAPPER Unavailable Source Comments [facility],non-owned Affiliates and Associated Physician Practices is amultiple site organization consisting of ambulatory clinics and hospital sitesin [place], [place], [place] and [place]. This disclosure is being madepursuant to the Care Everywhere program and may not contain all information available regarding this patient. Last updated 17.[facility] Allergies No known active allergies Medications * Be aware that medications may not be up to date on this document. Alwaysverify current medications with the patient. vitamin D, ergocalciferol, (DRISDOL) 81432 UNITS capsuleIndicati ons:Hypovitamin osis D Take 1 (one) capsule by mouth every 7 days 8 Active loratadine (CLARITIN) 10 MG tablet Take 1 (one) tablet by mouth once daily 1 Active amLODIPine (Norvasc) 5 MG tablet amlodipine 5 mg tablet TAKE 1 TABLET BY MOUTH EVERY DAY Active [place] Thyroid 90 MG tablet Take 1 (one) [...] on file Legal Sex Female 10:03 AM SPRINKLER FITTER APPRENTICE Gender Identity Not on file Sexual Orientation Not on file Last Filed Vital Signs Vital Sign Reading Time Taken Comments Blood Pressure 128/88 03/31/2024 11:01 AM SPRINKLER FITTER APPRENTICE Pulse 64 03/31/2024 11:01 AM SPRINKLER FITTER APPRENTICE Temperature 37.4 C (99.3 F) 11/24/2023 9:33 AM CDT Respiratory Rate 18 03/31/2024 11:01 AM SPRINKLER FITTER APPRENTICE Oxygen Saturation 100% 03/31/2024 11:01 AM SPRINKLER FITTER APPRENTICE Inhaled Oxygen Concentration - - Weight 98.4 kg (217 lb) 03/31/2024 11:01 AM SPRINKLER FITTER APPRENTICE Height 162.6 cm (5' 4) 03/31/2024 10:21 AM SPRINKLER FITTER APPRENTICE Body Mass Index 37.25 03/31/2024 10:21 AM SPRINKLER FITTER APPRENTICE Plan of Treatment Health Maintenance Due Date [...] DIAGNOSTIC W [place] Routine 03/31/2024 10:33 AM SPRINKLER FITTER APPRENTICE Abnormal mammogram from Last 3 Months or Most Recently Relevant to Health Maintenance Results * Mammo Bilat Diagnostic [place] (03/31/2024 10:33 AM SPRINKLER FITTER APPRENTICE) Anatomical Region Laterality Modality Breast Bilateral Mammography 03/31/2024 10:4 8 AM SPRINKLER FITTER APPRENTICE Impressions 03/31/2024 11:00 AM SPRINKLER FITTER APPRENTICE IMPRESSION: 1.Right breast mass at the 11:00 position 3 cm from the nipple is benign. 2.No suspicious mammographic finding in either breast. OVERALL FINAL ASSESSMENT: BI-RADS Category 2: Benign. Annual screening mammography is recommended. > Interpreting Provider: Mando Beasley MD on 03/31/2024 11:00 AM Narrative 03/31/2024 11:00 AM SPRINKLER FITTER APPRENTICE EXAMINATION: BILATERAL DIGITAL DIAGNOSTIC MAMMOGRAM INCLUDING CAD [...] suspicious cystic or solid mass. Syl Deluca TEAM LEAD-CANDLE WRAPPER MAMMO ORDERABLES Final Re sult from Last 3 Months or Most Recently Relevant to Health Maintenance Insurance Care Teams Veterinary Technician Assistant Relationship Specialty Start Date End Date Juan Geiger MD [address] [address] PCP - General 01/17/20 Genie Gan, TEAM LEAD-CANDLE WRAPPER [address] [place] [phone] Nurse Practitioner 11/01/21
--- OUTSIDE RECORDS SUMMARY | 2024-11-19 02:57 | XMS_ITS | Clinical Summary ---
Author Organization [facility] Address [address] [place] [address] Phone Care Team Providers Care Grinding Room Supervisor Name Role Phone Juan Geiger MD Primary Care Provider [phone] Hazel Marrufo MD Unavailable Allergies Active Allergy Reactions Criticality Noted Date Comments Diphenhydramine Hives 06/29/2024 Medications amLODIPine (NORVASC) 5 MG Tablet Take 5 mg by mouth daily. Active hydroCHLOROthia zide 25 MG Tablet Take 25 mg by mouth daily. 04/08/2023 Active [place] Thyroid 90 MG Tablet Take 90 mg by mouth daily. Active ergocalciferol (VITAMIN D) 75224 UNIT Capsule TAKE 1 CAPSULE BY MOUTH [...] CDT Clinical Support [facility] [address] [address] Iron deficiency anemia, unspecified iron deficiency anemia type (Primary Dx) 10/25/2024 Travel 10/12/2024 Telephone [facility] [address] [phone] Hazel Marrufo MD 10/08/2024 Telephone [facility] [place] [address] [facility] [address] [place] [address] Tracy Li APRN, BRIDGET [facility] call/schedule iron infusion 09/30/2024 3:00 PM CDT Office Visit [facility] [address] [phone] Tracy Li APRN, CHEESE SPECIALIST Iron deficiency anemia due to chronic blood loss (Primary Dx); Abnormal uterine bleeding (AUB) 09/30/2024 2:45 PM CDT Lab [facility] [address] [phone] Lab, Cc [place] Iron deficiency anemia due to chronic blood loss; Abnormal uterine bleeding (AUB) 09/30/2024 Travel 09/27/2024 Telephone [facility] [address] [phone] Hazel Marrufo MD from Last 3 Months [...] PM CDT Lab [facility] [address] [address] Lab, Cc [facility] 12/30/2024 2:15 PM CDT Office Visit [facility] [address] [phone] Hazel Marrufo MD [address] [place] [address] Health Maintenance Due Date Last Done [...] 09/30/2024 2:37 PM CDT IRON AND TIBC [id number] [place] Routine 09/30/2024 2:37 PM CDT FERRITIN [id number] [place] Routine 09/30/2024 2: 37 PM CDT RETICULOCYTE COUNT (RETIC) Routine 09/30/2024 2:37 PM CDT Iron deficiency anemia due to chronic blood loss Abnormal uterine bleeding (AUB) from Last 3 Months Results * (ABNORMAL) IRON AND TIBC [id number] [place] (09/30/2024 2:37 PM CDT) Iron Bind.Cap.(TIBC) 258 250 - 450 UG/DL [facility]ACILITIES SPECIALIST [facility] UIBC 230 131 - 425 UG/DL [facility]ACILITIES SPECIALIST [facility] Iron, Serum 28 27 - 159 UG/DL [facility] Iron Saturation 11(L) 15 - 55 % [facility] 09/30/2024 2:37 PM CDT Narrative [facility] [place] [facility] - 10/01/2024 10:07 AM CDT TESTING PERFORMED AT: [] [facility], [address] [place] [address], [address], PHONE: [phone], COMMERCIAL LOAN COORDINATOR: TONY PRETTY, PHD Hazel Marrufo MD LAB SEND OUTS Final Result [facility]IL[facility] SPECIAL[facility] [place] [address], * FERRITIN [id number] [place] (09/30/2024 2:37 PM CDT) Ferritin, Serum 97 15 - 150 NG/ML [facility] 09/30/2024 2:37 PM CDT Narrative [facility] - 10/01/2024 10:07 AM CDT TESTING PERFORMED AT: [] [facility], [address] [facility], [place], [address], PHONE: [phone], COMMERCIAL LOAN COORDINATOR: TONY PRETTY, PHD Hazel Marrufo MD LAB SEND OUTS Final Result [facility] [address] [place] [address], * (ABNORMAL) CBC WITH AUTO DIFF [place] (09/30/2024 2:37 PM CDT) WBC 5.9 4.0 - 10.0 10*3/uL [facility] SPECIAL[facility] HGB 11.1(L) 11.2 - 15.7 g/dL [facility] SPECIAL[facility] HCT 34.7 34.1 - 44.9 % [facility] PLT 281 163 - 369 10*3/uL [facility] MPV 11.0 9.4 - 12.4 fL [facility] RBC 3.88(L) 3.93 - 5.22 10*6/uL [facility] SPECIAL[facility] MCV 89 79 - 95 fL [facility] SPECIAL[facility] MCH 28.6 25.6 - 32.2 pg [facility]IES SPECIAL[facility] MCHC 32.0(L) 32.2 - 36.5 g/dL [facility]ILITIES SPECIAL[facility] RDW 14.6(H) 11.6 - 14.4 % [facility] Neutrophils % 55.0 36.0 - 66.0 % [facility] Lymphocytes % 37.6 19.0 - 40.0 % [facility] Monocytes % 5.4 4.1 - 12.1 % [facility] Eosinophils % 1.3 0.0 - 3.5 % [facility] Basophils % 0.5 0.0 - 1.0 % [facility] Absolute Neutrophils 3.3 1.4 - 6.6 10*3/uL [facility] SPECIAL[facility] Absolute Lymphocytes 2.2 0.8 - 4.0 10*3/uL [facility]IL[facility]IES SPECIAL[facility] Absolute Monocytes 0.3 0.2 - 1.2 10*3/uL [facility] Absolute Eosinophils 0.1 0.0 - 0.4 10*3/uL [facility] Absolute Basophils 0.0 0.0 - 0.1 10*3/uL [facility] [place] [facility] 09/30/2024 2:37 PM CDT us Hazel Marrufo MD LAB SEND OUTS Final Result Performing Organization Address [facility] de Phone Number [facility] [place] [address], * RETICULOCYTE COUNT (RETIC) (09/30/2024 2:37 PM CDT) Reticulocyte count 1.59 0.50 - 1.70 % [facility] RET-He 31.10 28.20 - 36.60 pg [facility] [place] [facility] Comment: RET-He is a direct assessment of incorporation of iron into erythrocyte hemoglobin. It provides an indirect measure of the iron available for new erythropoiesis over past 2-4 days. Blood 09/30/2024 2:37 PM CDT Narrative [facility] - 09/30/2024 2:45 PM CDT Release to patient->Immediate us Hazel Marrufo MD HEMATOLOGY ORDERABLES Final Resu lt Performing Organization Address [facility] [[email or web address]] Co de Phone Number [facility] [place] [place] [address], [place] [phone] from Last 3 Months Insurance MEDICAID [employer] Care Teams Grinding Room Supervisor Relationship Specialty Start Date End Date Juan Geiger MD [address] [facility] [address] [place] [address] PCP - General Internal Medicine 06/03/23 Hazel Marrufo MD [address] [place] [address] Consulting Physician Oncology 06/03/23
== END 2024-11-19 02:37 | disposition left against medical advice (07) ==
LOC: ANHED 02:56
DX: K13.79 Other lesions of oral mucosa (principal)
CPT/HCPCS: 99199

== ENCOUNTER 2024-11-21 20:44 | Emergency (ER) | payer MEDICAID, SELFPAY ==
--- OUTSIDE RECORDS SUMMARY | 2008-09-20 09:00 | XMS_ITS | Continuity of Care Document ---
Author Organization [facility] Address [address] [place] [address] [address] [place] [address] Phone Care Team Providers Care Dietary Assistant Name Role Phone Dago Melendez Unavailable Unavailable Procedures Procedure Date Eye Exam & Treatment Office/outpatient Visit, Est Eye Exam, New Patient Advance Directives Directive Yes / No Effective Date File Name No Information Encounters Encounter Description Practice Location Reason(s) For Visit Diagnoses Date Provider Providers Copied on Encounter [facility], [address] [place] [address] [address], [place], [place], [id number], [place] tel:[phone] [facility] No Information 9 Krishnasamy Dago. [address] [address], [place], [place], [facility], [place]. tel:[phone] Office/outpat ient Visit, Est [facility], [address] [place] [address] [address], [place], [place], [id number], [place] tel:[phone] [facility] No Information 5-200 8 Krishnasamy Dago. [address] [facility] [address], [place], [address], [place]. tel:[phone] [facility], [address] [place] [address] [address], [place], [place], [id number], [place] tel:[phone] [facility] No Information 4-200 8 Krishnasamy Dago. [address] [facility] [address], [place], [address], [place]. tel:[phone] Family History Family Member Type Diagnosis Age At Onset No Information Payers Payer name Insurance type Covered democrat ID Authoriza timona(s) Medicaid [facility] [id number] Social History Type Description Quantity Date Captured Comments Sex Female Smoking Status No Information Chief Complaint And Reason For Visit No Information Reason For Referral Reason For Referral No Information History Of Present Illness Encounter Date Complaint History Of Prese nt Illness No Information Functional Status Date Functional Assessmen t No Information Instructions Date Instruction Additional Infor mation No Information Assessments Type Assessment Date No Information Patient Care Teams Name Effective Dates (start - stop) Status Members No Information
[2024-11-21 20:47] VITALS: BP 142/82; PULSE 92; RESP 17; TEMP 37.1; O2SAT 100
--- OUTSIDE RECORDS SUMMARY | 2024-11-21 20:47 | XMS_ITS | Clinical Summary ---
Author Organization [facility] Address [address] [facility] [place] [address] Care Team Providers Care Band Nailer Name Role Phone Juan Geiger MD Primary Care Provider [phone] Genie Gan APRN-INSPECTOR PRECISION ASSEMBLY Unavailable Source Comments [facility],non-owned Affiliates and Associated Physician Practices is amultiple site organization consisting of ambulatory clinics and hospital sitesin [place], [place], [place] and [place]. This disclosure is being madepursuant to the Care Everywhere program and may not contain all information available regarding this patient. Last updated 17.[facility] Allergies No known active allergies Medications * Be aware that medications may not be up to date on this document. Alwaysverify current medications with the patient. vitamin D, ergocalciferol, (DRISDOL) 96296 UNITS capsuleIndicati ons:Hypovitamin osis D Take 1 (one) capsule by mouth every 7 days 8 Active loratadine (CLARITIN) 10 MG tablet Take 1 (one) tablet by mouth once daily 1 Active amLODIPine (Norvasc) 5 MG tablet amlodipine 5 mg tablet TAKE 1 TABLET BY MOUTH EVERY DAY Active [place] Thyroid 90 MG tablet Take 1 (one) [...] on file Legal Sex Female 10:03 AM PATIENT RELATIONS MANAGER Gender Identity Not on file Sexual Orientation Not on file Last Filed Vital Signs Vital Sign Reading Time Taken Comments Blood Pressure 128/88 03/31/2024 11:01 AM PATIENT RELATIONS MANAGER Pulse 64 03/31/2024 11:01 AM PATIENT RELATIONS MANAGER Temperature 37.4 C (99.3 F) 11/24/2023 9:33 AM CDT Respiratory Rate 18 03/31/2024 11:01 AM PATIENT RELATIONS MANAGER Oxygen Saturation 100% 03/31/2024 11:01 AM PATIENT RELATIONS MANAGER Inhaled Oxygen Concentration - - Weight 98.4 kg (217 lb) 03/31/2024 11:01 AM PATIENT RELATIONS MANAGER Height 162.6 cm (5' 4) 03/31/2024 10:21 AM PATIENT RELATIONS MANAGER Body Mass Index 37.25 03/31/2024 10:21 AM PATIENT RELATIONS MANAGER Plan of Treatment Health Maintenance Due Date [...] DIAGNOSTIC W [place] Routine 03/31/2024 10:33 AM PATIENT RELATIONS MANAGER Abnormal mammogram from Last 3 Months or Most Recently Relevant to Health Maintenance Results * Mammo Bilat Diagnostic [place] (03/31/2024 10:33 AM PATIENT RELATIONS MANAGER) Anatomical Region Laterality Modality Breast Bilateral Mammography 03/31/2024 10:4 8 AM PATIENT RELATIONS MANAGER Impressions 03/31/2024 11:00 AM PATIENT RELATIONS MANAGER IMPRESSION: 1.Right breast mass at the 11:00 position 3 cm from the nipple is benign. 2.No suspicious mammographic finding in either breast. OVERALL FINAL ASSESSMENT: BI-RADS Category 2: Benign. Annual screening mammography is recommended. > Interpreting Provider: Mando Beasley MD on 03/31/2024 11:00 AM Narrative 03/31/2024 11:00 AM PATIENT RELATIONS MANAGER EXAMINATION: BILATERAL DIGITAL DIAGNOSTIC MAMMOGRAM INCLUDING CAD [...] suspicious cystic or solid mass. Syl Deluca CHIEF SCIENTIFIC OFFICER-INSPECTOR PRECISION ASSEMBLY MAMMO ORDERABLES Final Re sult from Last 3 Months or Most Recently Relevant to Health Maintenance Insurance Care Teams Band Nailer Relationship Specialty Start Date End Date Juan Geiger MD [address] [address] PCP - General 01/17/20 Genie Gan, CHIEF SCIENTIFIC OFFICER-INSPECTOR PRECISION ASSEMBLY [address] [place] [phone] Nurse Practitioner 11/01/21
--- OUTSIDE RECORDS SUMMARY | 2024-11-21 20:47 | XMS_ITS | Encounter Summary ---
Author Organization [facility] Address [address] [place] [address] Phone Care Team Providers Care Team Leader/Research Psychologist Name Role Phone Juan Geiger MD Primary Care Provider [phone] Hazel Marrufo MD Unavailable Encounter Details Date Type Department Care Team (Late st Contact Info) Description 09/27/2024 Telephone [facility] [address] [place] [address] Hazel Marrufo MD [address] [place] [address] Social History Tobacco Use Types [...] PM CDT Lab [facility] [address] [phone] Lab, Cc [facility] 12/30/2024 2:15 PM CDT Office Visit [facility] [address] [phone] Hazel Marrufo MD [address] [place] [address] documented as of this encounter Visit Diagnoses Not on filedocumented in this encounter Care Teams Team Leader/Research Psychologist Relationship Specialty Start Date End Date Juan Geiger MD [address] [facility] [address] [place] [address] PCP - General Internal Medicine 06/03/23 Hazel Marrufo MD [address] [place] [address] Consulting Physician Oncology 06/03/23 documented as of this encounter
--- OUTSIDE RECORDS SUMMARY | 2024-11-21 20:47 | XMS_ITS | Clinical Summary ---
Author Organization [facility] Address [address] [place] [address] Phone Care Team Providers Care Morning Show Newscast Producer Name Role Phone Juan Geiger MD Primary Care Provider [phone] Hazel Marrufo MD Unavailable Allergies Active Allergy Reactions Criticality Noted Date Comments Diphenhydramine Hives 06/29/2024 Medications amLODIPine (NORVASC) 5 MG Tablet Take 5 mg by mouth daily. Active hydroCHLOROthia zide 25 MG Tablet Take 25 mg by mouth daily. 04/08/2023 Active [place] Thyroid 90 MG Tablet Take 90 mg by mouth daily. Active ergocalciferol (VITAMIN D) 79538 UNIT Capsule TAKE 1 CAPSULE BY MOUTH [...] CDT Clinical Support [facility] [address] [phone] Iron deficiency anemia, unspecified iron deficiency anemia type (Primary Dx) 10/25/2024 Travel 10/12/2024 Telephone [facility] [address] [phone] Hazel Marrufo MD 10/08/2024 Telephone [facility] [place] [address] [facility] [address] [place] [address] Tracy Li APRN, BRIDGET [facility] call/schedule iron infusion 09/30/2024 3:00 PM CDT Office Visit [facility] [address] [phone] Tracy Li APRN, OPERATIONS DEVELOPER Iron deficiency anemia due to chronic blood loss (Primary Dx); Abnormal uterine bleeding (AUB) 09/30/2024 2:45 PM CDT Lab [facility] [address] [phone] Lab, Cc [place] Iron deficiency anemia due to chronic blood loss; Abnormal uterine bleeding (AUB) 09/30/2024 Travel 09/27/2024 Telephone [facility] [address] [phone] Hazel Marrufo MD from Last 3 Months [...] PM CDT Lab [facility] [address] [phone] Lab, Cc [facility] 12/30/2024 2:15 PM CDT Office Visit [facility] [address] [phone] Hazel Marrufo MD [address] [place] [address] Health Maintenance Due Date Last Done [...] 09/30/2024 2:37 PM CDT IRON AND TIBC [id number] [place] Routine 09/30/2024 2:37 PM CDT FERRITIN [id number] [place] Routine 09/30/2024 2: 37 PM CDT RETICULOCYTE COUNT (RETIC) Routine 09/30/2024 2:37 PM CDT Iron deficiency anemia due to chronic blood loss Abnormal uterine bleeding (AUB) from Last 3 Months Results * (ABNORMAL) IRON AND TIBC [id number] [place] (09/30/2024 2:37 PM CDT) Iron Bind.Cap.(TIBC) 258 250 - 450 UG/DL CANCER RADIOTELEGRAPH OPERATOR [facility] UIBC 230 131 - 425 UG/DL CANCER RADIOTELEGRAPH OPERATOR [facility] Iron, Serum 28 27 - 159 UG/DL [facility] Iron Saturation 11(L) 15 - 55 % [facility] 09/30/2024 2:37 PM CDT Narrative [facility]GR[facility] - 10/01/2024 10:07 AM CDT TESTING PERFORMED AT: [] [facility], [address] [place] [address], [address], PHONE: [phone], HYPOID GEAR TESTER: TONY PRETTY, PHD Hazel Marrufo MD LAB SEND OUTS Final Result CANCER RADIOTELEGRAPH OPERATOR [facility] [place] [address], * FERRITIN [id number] [place] (09/30/2024 2:37 PM CDT) Ferritin, Serum 97 15 - 150 NG/ML CANCER RADIOTELEGRAPH OPERATOR [facility] 09/30/2024 2:37 PM CDT Narrative CANCER RADIOTELEGRAPH OPERATOR [facility] - 10/01/2024 10:07 AM CDT TESTING PERFORMED AT: [] [facility], [address] [facility], [place], [address], PHONE: [phone], HYPOID GEAR TESTER: TONY PRETTY, PHD Hazel Marrufo MD LAB SEND OUTS Final Result CANCER RADIOTELEGRAPH OPERATOR [facility] [address] [place] [address], * (ABNORMAL) CBC WITH AUTO DIFF [place] (09/30/2024 2:37 PM CDT) WBC 5.9 4.0 - 10.0 10*3/uL CANCER RADIOTELEGRAPH OPERATOR [facility] HGB 11.1(L) 11.2 - 15.7 g/dL CANCER RADIOTELEGRAPH OPERATOR [facility] HCT 34.7 34.1 - 44.9 % CANCER RADIOTELEGRAPH OPERATOR [facility] PLT 281 163 - 369 10*3/uL CANCER RADIOTELEGRAPH OPERATOR [facility] MPV 11.0 9.4 - 12.4 fL CANCER RADIOTELEGRAPH OPERATOR [facility] RBC 3.88(L) 3.93 - 5.22 10*6/uL CANCER RADIOTELEGRAPH OPERATOR [facility] MCV 89 79 - 95 fL CANCER RADIOTELEGRAPH OPERATOR [facility] MCH 28.6 25.6 - 32.2 pg CANCER RADIOTELEGRAPH OPERATOR [facility] MCHC 32.0(L) 32.2 - 36.5 g/dL CANCER RADIOTELEGRAPH OPERATOR [facility] RDW 14.6(H) 11.6 - 14.4 % CANCER RADIOTELEGRAPH OPERATOR [facility] Neutrophils % 55.0 36.0 - 66.0 % CANCER RADIOTELEGRAPH OPERATOR [facility] Lymphocytes % 37.6 19.0 - 40.0 % CANCER RADIOTELEGRAPH OPERATOR [facility] Monocytes % 5.4 4.1 - 12.1 % CANCER RADIOTELEGRAPH OPERATOR [facility] Eosinophils % 1.3 0.0 - 3.5 % CANCER RADIOTELEGRAPH OPERATOR [facility] Basophils % 0.5 0.0 - 1.0 % CANCER RADIOTELEGRAPH OPERATOR [facility] Absolute Neutrophils 3.3 1.4 - 6.6 10*3/uL CANCER RADIOTELEGRAPH OPERATOR [facility] Absolute Lymphocytes 2.2 0.8 - 4.0 10*3/uL CANCER RADIOTELEGRAPH OPERATOR [facility] Absolute Monocytes 0.3 0.2 - 1.2 10*3/uL [facility] Absolute Eosinophils 0.1 0.0 - 0.4 10*3/uL [facility] Absolute Basophils 0.0 0.0 - 0.1 10*3/uL [facility] RAD[facility]LEGRAPH [facility] 09/30/2024 2:37 PM CDT us Hazel Marrufo MD LAB SEND OUTS Final Result Performing Organization Address [facility] de Phone Number [facility]GR[facility] [place] [address], * RETICULOCYTE COUNT (RETIC) (09/30/2024 2:37 PM CDT) Reticulocyte count 1.59 0.50 - 1.70 % [facility] RET-He 31.10 28.20 - 36.60 pg [facility] RAD[facility]LEGRAPH [facility] Comment: RET-He is a direct assessment of incorporation of iron into erythrocyte hemoglobin. It provides an indirect measure of the iron available for new erythropoiesis over past 2-4 days. Blood 09/30/2024 2:37 PM CDT Narrative [facility] - 09/30/2024 2:45 PM CDT Release to patient->Immediate us Hazel Marrufo MD HEMATOLOGY ORDERABLES Final Resu lt Performing Organization Address [facility] Co de Phone Number [facility]LEGR[facility] [place] [place] [address], [place] [phone] from Last 3 Months Insurance MEDICAID [employer] Care Teams Morning Show Newscast Producer Relationship Specialty Start Date End Date Juan Geiger MD [address] [facility] [address] [place] [address] PCP - General Internal Medicine 06/03/23 Hazel Marrufo MD [address] [place] [address] Consulting Physician Oncology 06/03/23
--- NOTE | 2024-11-21 22:19 | ED.DENTAL ---
HPI - Dental/Oral General Chief complaint: Dental/Oral Stated complaint: Mouth watering-dental caries Time Seen by Provider: 11/21/24 22:17 Source: patient and old records reviewed Mode of arrival: ambulatory Limitations: no limitations History of Present Illness HPI Narrative: Patient is a 44-year-old female presents the ED with report increased elevation. Patient reports having increased salivation throughout her mouth for the last 1 week. She was seen at urgent care for these symptoms on 11/08 and referred to ENT. Has not followed up with them. Reports symptoms seem to be related to her acid reflux. She was started on Protonix by urgent care. Seems to be worse with certain foods. Denies dental pain. Denies difficulty breathing or swallowing. Denies fevers. Related Data Home Medications ?Medication ?Instructions ?Recorded ?Confirmed ?Last Taken ?Type amlodipine 5 mg tablet 5 mg PO 07/29/19 Unknown History hydrochlorothiazide 12.5 mg capsule 12.5 mg PO 07/29/19 Unknown History thyroid (pork) 60 mg tablet (MAINTENANCE MECHANIC MILLWRIGHT 60 mg PO 11/16/19 Unknown History Thyroid) pantoprazole 20 mg tablet,delayed mg PO 11/08/24 Unknown History release Allergies Allergy/AdvReac Type Severity Reaction Status Date / Time No Known Drug Allergies Allergy none Verified 11/19/24 01:12 Review of Systems Review of Systems: All systems reviewed & are unremarkable except as noted in HPI. All systems reviewed & are unremarkable except as noted in HPI and below PMFSH Past Medical History Medical History Hypothyroid Hypertension Surgical History Surgical History History of Family History Family History Mother Family history non-contributory Social History Social History Smoking status: Never smoker Gender identity (if verbalized by the patient): Female Spiritual care concerns: No Exam Narrative: GENERAL: Well appearing, obese with BMI of 37 with, non-toxic, in no acute distress. HEAD: Normocephalic, atraumatic. ENT: MMs moist but no obvious excessive saliva. Scattered dental caries. No focal fluctuance. No tonsillar hypertrophy or exudate. No stridor or trismus. RESPIRATORY: Airway patent, respirations nonlabored. CARDIOVASCULAR: Regular rate and rhythm MUSCULOSKELETAL: Moves all extremities. No gross deformities. SKIN: Warm, dry, normal color. NEURO: A&O X3. Speech clear. PSYCHIATRIC: Appropriate mood and affect. Normal interaction. Course Vital Signs Vital signs: Vital Signs Temperature 98.7 F 11/21/24 20:47 Pulse Rate 92 11/21/24 20:47 Respiratory Rate 17 11/21/24 20:47 Blood Pressure 142/82 H 11/21/24 20:47 Pulse Oximetry 100 11/21/24 20:47 Oxygen Delivery Room Air 11/21/24 20:47 Temperature 98.7 F 11/21/24 20:47 Pulse Rate 92 11/21/24 20:47 Respiratory Rate 17 11/21/24 20:47 Blood Pressure 142/82 H 11/21/24 20:47 Pulse Oximetry 100 11/21/24 20:47 Oxygen Delivery Room Air 11/21/24 20:47 MDM - Dental/Oral MDM Narrative Medical decision making narrative: Exam fairly unremarkable. No respiratory distress or compromise. No stridor or trismus. She does have numerous dental caries on exam. This may be contributing. Will cover for potential dental infection with Augmentin. Also prescribed chlorhexidine mouthwash. No signs or symptoms of diabetes. Denies excessive thirst, hunger, polyuria. She denies previous history of diabetes. Advised close follow-up with PCP, dentist, ENT for further evaluation. Recommended she keep a food diary and monitor foods that seem to worsen her saliva. Given return precautions. D/C in stable condition. Medical Records Attestation: I reviewed the patient's medical records. Discharge Plan Discharge Clinical Impression: Increased salivation, Dental caries Patient Disposition: Home Condition: Stable Instructions: Antibiotic Form, Sialorrhea (ED), Mouth Care (ED) Additional Instructions: Take antibiotics as prescribed. Stay well-hydrated. Utilize antibiotic mouthwash as prescribed. Continue your acid reflux medication. Follow-up with your primary care doctor, ENT, and/or your dentist for further evaluation. Return for new or worsening concerns. Patient Language: Barbadian Prescriptions: New chlorhexidine gluconate 0.12 % mouthwash 15 ml buccal BID PRN (Reason: mouth irritation) Qty: 118 0RF amoxicillin-pot clavulanate 400-57 mg/5 mL suspension for reconstitution 10 ml PO Q12H 7 Days Qty: 140 0RF No Action pantoprazole 40 mg tablet,delayed release (DR/EC) 40 mg PO QAM 30 Days Qty: 30 0RF phenylephrine HCl 10 mg tablet 10 mg PO Q4-6H PRN (Reason: nasal congestion) Qty: 20 0RF pantoprazole 20 mg tablet,delayed release (DR/EC) PO amlodipine 5 mg tablet 5 mg PO hydrochlorothiazide 12.5 mg capsule 12.5 mg PO thyroid (pork) [MAINTENANCE MECHANIC MILLWRIGHT Thyroid] 60 mg tablet 60 mg PO Follow-up/Referrals: Shane Calix MD [Physician, Ear, Nose, Throat] Referral Note: ENT Gume Menendez MD [Physician, Ear, Nose, Throat] Referral Note: ENT PHYSICIAN NOT ON STAFF,NONSTAFF [Non-Staff] Time of Disposition: 23:11
== END 2024-11-21 23:28 | disposition home or self-care (01) ==
PROVIDERS: Emergency Provider Physician Assistant
DX: K11.7 Disturbances of salivary secretion (principal); K02.9 Dental caries, unspecified; E03.9 Hypothyroidism, unspecified; I10 Essential (primary) hypertension
CPT/HCPCS: 99283; A9270

== ENCOUNTER 2024-12-21 13:22 | Emergency (ER) | payer OTHER, SELFPAY ==
[2024-12-21 13:28] VITALS: BP 143/78; PULSE 86; RESP 16; TEMP 37.1; O2SAT 100
--- NOTE | 2024-12-21 13:32 | ED.DENTAL ---
HPI - Dental/Oral General Chief complaint: Dental/Oral Stated complaint: Dental Pain Time Seen by Provider: 12/21/24 13:34 Source: patient Mode of arrival: ambulatory Limitations: no limitations History of Present Illness HPI Narrative: 44-year-old female presents with concern for dental pain. She reports 3 days of right frontal dental pain. Reports she had another dental infection that she was treated for 1 month ago with amoxicillin. She has a dentist appointment in January MD Complaint: tooth pain Related Data Home Medications ?Medication ?Instructions ?Recorded ?Confirmed ?Last Taken ?Type amlodipine 5 mg tablet 5 mg PO 07/29/19 Unknown History hydrochlorothiazide 12.5 mg capsule 12.5 mg PO 07/29/19 Unknown History thyroid (pork) 60 mg tablet (HEDIS REGISTERED NURSE RN 60 mg PO 11/16/19 Unknown History Thyroid) pantoprazole 20 mg tablet,delayed mg PO 11/08/24 Unknown History release ergocalciferol (vitamin D2) 1,250 12/21/24 Unknown History mcg (50,000 unit) capsule fexofenadine 180 mg tablet mg 12/21/24 Unknown History (Allergy Relief (fexofenadine)) fluticasone propionate 50 intranasal 12/21/24 Unknown History mcg/actuation nasal spray,suspension Allergies Allergy/AdvReac Type Severity Reaction Status Date / Time No Known Drug Allergies Allergy none Verified 12/21/24 13:23 Review of Systems Review of Systems: CONSTITUTIONAL: Denies malaise, chills, sweats, or fever. EYES: Denies visual changes ENT: Denies rhinorrhea, congestion, sinus pain, otalgia or sore throat. Reports right frontal dental pain CARDIOVASCULAR: Denies chest pain, palpitations RESPIRATORY: Denies cough or dyspnea. SKIN: Denies rash or itching. MUSCULOSKELETAL: Denies myalgia. NEUROLOGIC: Denies numbness, weakness, or headache. All systems reviewed & are unremarkable except as noted in HPI and below PMFSH Past Medical History Medical History Hypothyroid Hypertension Surgical History Surgical History History of Family History Family History Mother Family history non-contributory Social History Social History Smoking status: Never smoker Gender identity (if verbalized by the patient): Female Spiritual care concerns: No Comments At time of signature, agree with nursing past medical, surgical, social and family history. There is no relevant family history pertinent to the presenting complaint Exam Narrative: GENERAL: Well-appearing, well-nourished, and in no acute distress. HEAD: Normocephalic, atraumatic. EYES: PERRLA, sclera clear ENT: Nares clear, turbinates pink, no rhinorrhea or epistaxis. Mucous membranes moist. Caries noted, no jaw swelling noted NECK: Supple. No lymphadenopathy. CHEST: No respiratory distress. Speaks in full sentences. HEART: Regular rate and rhythm. SKIN: Warm, dry, no visible rash. NEURO: Alert and oriented x3. PSYCH: Normal mood and affect Course Course Emergency Course: Patient is aware of diagnosis, understands and agrees to treatment plan. Anticipatory guidance given. Patient agrees to follow-up as directed and is aware of reasons to seek care at the emergency department. Portions of this record may have been created with voice recognition software Level of Care: Express Care Visit Vital Signs Vital signs: Vital Signs Temperature 98.7 F 12/21/24 13:28 Pulse Rate 86 12/21/24 13:28 Respiratory Rate 16 12/21/24 13:28 Blood Pressure 143/78 H 12/21/24 13:28 Pulse Oximetry 100 12/21/24 13:28 Oxygen Delivery Room Air 12/21/24 13:28 Temperature 98.7 F 12/21/24 13:28 Pulse Rate 86 12/21/24 13:28 Respiratory Rate 16 12/21/24 13:28 Blood Pressure 143/78 H 12/21/24 13:28 Pulse Oximetry 100 12/21/24 13:28 Oxygen Delivery Room Air 12/21/24 13:28 Reviewed. MDM - Dental/Oral MDM Narrative Medical decision making narrative: I evaluated this in the express care. History is obtained from patient who is an independent historian and physical exam was performed.? Available medical records were reviewed. ? Exam findings and relevant testing show no acute concerns or changes; patient is non-toxic appearing and is in no distress. Patients pain and complaint coupled with physical findings are consistant with dentalgia. There are no focal signs of space occupying lesions that are compromising to the airway; no dysphagia, odynophagia, dysphonia, or dyspnea. No uvular deviation or soft palate edema. Patient is non-toxic appearing. The floor of the mouth is soft with no signs of Alex's Angina; no induration below mandible, no neck pain. Patient is without trismus or drooling and able to swallow secretions. Patient is felt appropriate for discharge home with dental follow up. ? Differential diagnosis and treatment plan were discussed with the patient. Patient agrees with discussion and after shared medical decision making agrees with plan of care. All questions were answered to the patient's satisfaction. Patient is appropriate for outpatient treatment and follow-up. Differential Diagnosis Differential diagnosis: Likely gingival abscess, dental caries, toothache, dental abscess, fracture of tooth and aphthous ulcer Critical Care Time Critical Care Time Critical Care Time: No Discharge Plan Discharge Clinical Impression: Toothache Patient Disposition: Home Condition: Stable Instructions: Antibiotic Form, Toothache (ED) Additional Instructions: Take antibiotic as directed Avoid temperature extremes May apply heat or ice to the face Gentle brushing and flossing Take 2 extra strength Tylenol, 4 ibuprofen, 80 mg of caffeine at same time. You can do this every 6 hours. Do not do this for more than 2 - 3 days. You can substitute 25 mg Benadryl at nighttime for caffeine to help you sleep. Do this for no more than 3 days. Follow-up with the dentist as soon as possible - see the list provided Patient Language: Divehi Prescriptions: New amoxicillin-pot clavulanate [Augmentin] 250-62.5 mg/5 mL suspension for reconstitution 17.5 ml PO Q12H 10 Days Qty: 350 0RF No Action ergocalciferol (vitamin D2) 1,250 mcg (50,000 unit) capsule fluticasone propionate 50 mcg/actuation spray,suspension INTRANASAL fexofenadine [Allergy Relief (fexofenadine)] 180 mg tablet pantoprazole 20 mg tablet,delayed release (DR/EC) PO amlodipine 5 mg tablet 5 mg PO hydrochlorothiazide 12.5 mg capsule 12.5 mg PO thyroid (pork) [HEDIS REGISTERED NURSE RN Thyroid] 60 mg tablet 60 mg PO Follow-up/Referrals: PHYSICIAN,FIRE FIGHTER [Primary Care Provider, Internal Medicine] Time of Disposition: 13:38
== END 2024-12-21 13:45 | disposition home or self-care (01) ==
PROVIDERS: Emergency Provider Nurse Practitioner
DX: K08.89 Other specified disorders of teeth and supporting structures (principal); I10 Essential (primary) hypertension; E03.9 Hypothyroidism, unspecified
CPT/HCPCS: 99213; G0463

== ENCOUNTER 2025-03-02 16:49 | Emergency (ER) | payer OTHER, SELFPAY ==
[2025-03-02 16:56] VITALS: BP 131/68; PULSE 87; RESP 18; TEMP 36.9; O2SAT 100
--- NOTE | 2025-03-02 17:08 | ED_ITS ---
HPI - URI/Sore Throat General Chief Complaint: Upper Respiratory Infection Stated Complaint: Sore throat Time Seen by Provider: 03/02/25 17:08 Source: patient, RN notes reviewed and old records reviewed Mode of arrival: ambulatory Limitations: no limitations History of Present Illness HPI Narrative: 44-year-old female presents to the [facility] with complaints of feeling like something is stuck in her throat after eating corn puffs and taking her medications. Has been able to tolerate fluids, water and eat pudding Patient with denies any difficulty breathing. Denies any fevers. Denies any pain, sore throat, flu-like symptoms. Patient denies any chest pain. Onset (ago): day(s) (1) Treatments prior to arrival: none Related Data Home Medications ?Medication ?Instructions ?Recorded ?Confirmed ?Last Taken ?Type amlodipine 5 mg tablet 5 mg PO 07/29/19 Unknown Hi story hydrochlorothiazide 12.5 mg capsule 12.5 mg PO 0 Unknown History pantoprazole 20 mg tablet,delayed mg PO 11/08/24 Unkn own History release ergocalciferol (vitamin D2) 1,250 12/21/24 Unknown H istory mcg (50,000 unit) capsule fexofenadine 180 mg tablet mg 12/21/24 Unknown Histor y (Allergy Relief (fexofenadine)) fluticasone propionate 50 intranasal 12/21/24 Unknown History mcg/actuation nasal spray,suspension ferrous sulfate 325 mg (65 mg mg 03/02/25 Unknown His tory iron) tablet (FeroSul) hydrochlorothiazide 25 mg tablet mg 03/02/25 Unknown History thyroid (pork) 90 mg tablet (IMAGING MANAGER mg 03/02/25 Unknown H istory Thyroid) Allergies Allergy/AdvReac Type Severity Reaction Status Date / Time No Known Drug Allergies Allergy none Verified 03/02/25 17:15 Review of Systems Review of Systems: All systems reviewed & are unremarkable except as noted in HPI and below Constitutional: Constitutional: Reports no additional constitutional complaints ENT: Reports as per HPI Cardiovascular: Cardiovascular: Reports no additional cardiovascular complaints, Denies chest pain and Denies dyspnea Respiratory: Respiratory: Reports no additional respiratory complaints, Denies chest congestion, Denies cough and Denies dyspnea Musculoskeletal: Musculoskeletal: Reports no additional musculoskeletal complaints Integumentary/Breasts: Skin/Breast: Reports system reviewed and no additional complaints, except as docu [facility] Past Medical History Medical History Hypothyroid Hypertension Surgical History Surgical History History of Family History Family History Mother Family history non-contributory Social History Social History Smoking status: Never smoker Gender identity (if verbalized by the patient): Female Spiritual care concerns: No Comments At the time of my signature, I reviewed and agree with the nursing past medical, surgical, social, and family history. There is no relevant family history pertinent to the patient complaint. Exam Const: General: cooperative, healthy appearing, comfortable, no acute distress, well developed, alert and well nourished Nutritional Appearance: well nourished Orientation/consciousness: patient oriented x3 Limitations: no limitations HENMT: Head: normal to inspection Ears: hearing grossly normal bilaterally, external ears normal, TM's normal bilaterally, EAC's normal, mastoids normal and no periauricular adenopathy Face and sinus: normal facial exam Mouth: Yes Normal oral and palatal mucosa present, Yes lip normal, Yes tongue normal and Yes moist mucous membranes Throat: posterior oropharynx normal, uvula midline and no uvular edema Eyes: General: appearance normal, both eyes and all related structures Alignment and Position: alignment normal Neck: Neck: normal visual inspection, full ROM, no lymphadenopathy and no men ingeal signs Chest: Chest palpation & inspection: normal inspection of the chest Resp: Effort & Inspection: normal respiratory effort and able to speak in complete sentences Auscultation: clear to auscultation bilaterally, no crackles, no rales, no rhonchi and no wheezes Cardio: Rate: regular rate Skin: General skin exam: normal color and no rashes or lesions noted Neuro: General: patient oriented x3, gait normal, moves all extremities and no meningeal signs Cognition (Neuro): normal cognition Speech: normal speech Gait exam (Neuro): Normal gait present Extrem: General: normal to inspection, full ROM, capillary refill normal and normal gait Psych: Appearance: grossly normal and well kempt Mental Status: mental status grossly normal Speech and movement: Normal speech and movement present and Clear speech present Affect: normal affect Attitude: cooperative Course Course Level of Care: Express Care Visit Vital Signs Vital signs: Vital Signs Temperature 98.5 F 03/02/25 16:56 Pulse Rate 87 03/02/25 16:56 Respiratory Rate 18 03/02/25 16:56 Blood Pressure 131/68 03/02/25 16:56 Pulse Oximetry 100 03/02/25 16:56 Oxygen Delivery Room Air 03/02/25 16:56 Temperature 98.5 F 03/02/25 16:56 Pulse Rate 87 03/02/25 16:56 Respiratory Rate 18 03/02/25 16:56 Blood Pressure 131/68 03/02/25 16:56 Pulse Oximetry 100 03/02/25 16:56 Oxygen Delivery Room Air 03/02/25 16:56 reviewed Transfer Transfered to: [facility] Transportation: Other (pov ) Transfer rationale: Patient with foreign body sensation throat after eating corn pops and taking her medications. Patient is requesting transfer for further evaluation due to limit ed strep resources in the [facility] Accepting physician: Spoke with Dr. Jalen Gambino [facility] MDM Narrative Medical decision making narrative: Patient with feeling of foreign body in her throat. Able to tolerate fluids. Patient is requesting due to limited resources to be transferred to the ER Patient is sitting comfortably in exam room. Patient is nontoxic and vitals are stable. Able to maintain own airway. Is maintaining own secretions. Transfer instructions reviewed with patient to go directly to the ER. Do not eat or drink until cleared by ER provider All questions have been answered, and the patient deny any further questions with discharge and discharge plan. Some parts of this dictation were generated by voice recognition software and may contain typographical and/or grammatical inaccuracies. Differential Diagnosis Differential Diagnosis: Esophagitis, fluid bolus, stricture Discharge Plan Discharge Clinical Impression: Sensation of foreign body in throat Patient Disposition: Acute Care Hospital Condition: Stable Instructions: Antibiotic Form Patient Language: Mauritanian Prescriptions: No Action ergocalciferol (vitamin D2) 1,250 mcg (50,000 unit) capsule fluticasone propionate 50 mcg/actuation spray,suspension INTRANASAL fexofenadine [Allergy Relief (fexofenadine)] 180 mg tablet pantoprazole 20 mg tablet,delayed release (DR/EC) PO ferrous sulfate [FeroSul] 325 mg (65 mg iron) tablet hydrochlorothiazide 25 mg tablet thyroid (pork) [IMAGING MANAGER Thyroid] 90 mg tablet amlodipine 5 mg tablet 5 mg PO hydrochlorothiazide 12.5 mg capsule 12.5 mg PO Follow-up/Referrals: UNKNOWN,DOCTOR [Primary Care Provider]
== END 2025-03-02 17:20 | disposition short-term general hospital (02) ==
PROVIDERS: Emergency Provider Nurse Practitioner
DX: R09.A2 Foreign body sensation, throat (principal); I10 Essential (primary) hypertension; E03.9 Hypothyroidism, unspecified
CPT/HCPCS: 99212; G0463

== ENCOUNTER 2025-03-05 07:52 | Emergency (ER) | payer OTHER, SELFPAY ==
--- NOTE | ~2025-03-05 | CT_ITS ---
EXAMINATION: CT soft tissue neck w con DATE: 03/05/2025 12:40 INDICATION: Difficulty swallowing TECHNIQUE: Computed tomography (CT) of the neck was performed with 75 mL Omnipaque-350 intravenous contrast. Automated exposure control and iterative reconstruction technique were employed. The dose-length product was 508.67 mGy-cm. COMPARISON: None FINDINGS: Orbits are normal. The paranasal sinuses are clear. Mastoid air cells and middle ear cavities are clear. Submandibular and parotid glands are normal and symmetric. Thyroid gland is unremarkable. There are scattered normal-sized lymph nodes in the neck, no lymphadenopathy. No masses identified. Parapharyngeal soft tissues are unremarkable. No abscess. The epiglottis and prevertebral soft tissues are unremarkable. The vasculature is patent and normal in caliber. Airway is unremarkable. Superior mediastinum is unremarkable. Lung apices are normal. Mild to moderate lower cervical predominant spondylosis. There is dental disease with multiple absent teeth, several dental caries and periapical erosions at bilateral maxillary premolars. IMPRESSION: 1. Unremarkable parapharyngeal soft tissues with no abscess, abnormal masses or pathologically enlarged lymphadenopathy. 2. Extensive dental disease including periapical erosions at bilateral maxillary premolars. Reviewed, dictated and finalized at location A. D SERVICES ANALYST IMPRESSION: 1. Unremarkable parapharyngeal soft tissues with no abscess, abnormal masses or pathologically enlarged lymphadenopathy. 2. Extensive dental disease including periapical erosions at bilateral maxillar y premolars.
--- NOTE | ~2025-03-05 | XR_ITS ---
Examination: XR chest 2V Clinical History: Difficulty swallowing Comparison: 10/27/2024 Technique: PA and Lateral Findings: Cardiomediastinal silhouette normal size and configuration. Lungs clear. No acute bony abnormality. IMPRESSION: 1. No acute cardiopulmonary findings. Reviewed, dictated and finalized at location R. STATEMENT CLERK
[2025-03-05 07:53] VITALS: BP 125/79; PULSE 90; RESP 16; TEMP 36.8; O2SAT 100
--- OUTSIDE RECORDS SUMMARY | 2025-03-05 07:54 | XMS_ITS | Encounter Summary ---
Author Organization [facility] Address [address] [place] [address] Phone Care Team Providers Care Imaging Technician Name Role Phone Juan Geiger MD Primary Care Provider [phone] Hazel Marrufo MD Unavailable Encounter Details Date Type Department Care Team (Late st Contact Info) Description 09/27/2024 Telephone [facility] [address] [phone] Hazel Marrufo MD [address] [place] [phone] Social History Tobacco Use Types Packs/Day Years Used Date Smoking Tobacco: Never Smokeless Tobacco: Never Comments Unknown Sex and Gender Information Value Date Recorded Sex Assigned at Not on file Legal Sex Female 10:28 AM CDT Gender Identity Not on file Sexual Orientation Not on file documented as of this encounter Plan of Treatment Upcoming Encounters Date Type Department Care Team (Late st Contact Info) Description 03/31/2025 2:00 PM MEDICAL ASSOCIATE Lab [facility] [address] [phone] Lab, [facility] 03/31/2025 2:15 PM MEDICAL ASSOCIATE Office Visit [facility] [address] [phone] Hazel Marrufo MD [address] [place] [address] [phone] documented as of this encounter Visit Diagnoses Not on filedocumented in this encounter Care Teams Imaging Technician Relationship Specialty Start Date End Date Juan Geiger MD [address] [facility] [address] [place] [address] PCP - General Internal Medicine 06/03/23 Hazel Marrufo MD [address] [place] [phone] Consulting Physician Oncology 06/03/23 documented as of this encounter
--- OUTSIDE RECORDS SUMMARY | 2025-03-05 07:55 | XMS_ITS | Clinical Summary ---
Author Organization [facility] Address [address] [place] [address] Phone Care Team Providers Care Mobile Therapist Name Role Phone Juan Geiger MD Primary Care Provider Hazel Marrufo MD Unavailable Allergies Active Allergy Reactions Criticality Noted Date Comments Diphenhydramine Hives 06/29/2024 Medications amLODIPine (NORVASC) 5 MG Tablet Take 5 mg by mouth daily. Active hydroCHLOROthia zide 25 MG Tablet Take 25 mg by mouth daily. 04/08/2023 Active [place] Thyroid 90 MG Tablet Take 90 mg by mouth daily. Active ergocalciferol (VITAMIN D) 19899 UNIT Capsule TAKE 1 CAPSULE BY MOUTH EVERY WEEK 06/25/2023 Active FeroSul 325 (65 Fe) MG Tablet Take 1 Tablet by mouth 2 times daily. 90 Tablet 1 03/24/2024 Active Clindamycin HCl (CLEOCIN) 300 MG Capsule take 1 capsule by mouth three times daily for 7 days 12/24/2024 Active pantoprazole (PROTONIX) 20 MG Tablet Delayed Response Take 20 mg by mouth daily. Active Active Problems Problem Noted Date Diagnosed Date Iron deficiency anemia, unspecified 10/08/2024 Iron deficiency anemia due to chronic blood loss 07/01/2023 Hypertension Encounters Date Type Department Care Team Description 01/05/2025 Results Follow-Up [facility] [address] [phone] Tracy Li, APPLICATION SUPPORT ENGINEER, INTERLOCKING INSTALLER FERRITIN [id number] [place], IRON AND TIBC [id number] [place], COMP. METABOLIC PANEL [id number] [place], CBC WITH AUTO DIFF [place] 12/30/2024 2:15 PM CDT Office Visit [facility] [address] [phone] Tracy Li, APPLICATION SUPPORT ENGINEER, INTERLOCKING INSTALLER Iron deficiency anemia due to chronic blood loss (Primary Dx); Abnormal uterine bleeding (AUB) 12/30/2024 2:00 PM CDT Lab [facility] [address] [phone] Lab, Cc Jimmie Iron deficiency anemia due to chronic blood loss; Abnormal uterine bleeding (AUB) 12/30/2024 Travel from Last 3 Months Social History Tobacco [...] Sign Reading Time Taken Comments Blood Pressure 130/80 12/30/2024 2:25 PM CDT Pulse 93 12/30/2024 2:25 PM CDT Temperature 36.7 C (98 F) 12/30/2024 2:25 PM CDT Respiratory Rate 18 12/30/2024 2:25 PM CDT Oxygen Saturation 99% 12/30/2024 2:25 PM CDT Inhaled Oxygen Concentration - - Weight 97.5 kg (215 lb) 12/30/2024 2:25 PM CDT Height 162.6 cm (5' 4) 12/30/2024 2:25 PM CDT Body Mass Index 36.9 12/30/2024 2:25 PM CDT Plan of Treatment Upcoming Encounters Date Type Department Care Team (Late st Contact Info) Description 03/31/2025 2:00 PM CHICKEN HANDLER Lab [facility] [address] [phone] Lab, Cc [facility] 03/31/2025 2:15 PM CHICKEN HANDLER Office Visit [facility] [place] [address] [place] [address] Hazel Marrufo MD [address] [place] [address] Health Maintenance Due Date Last Done Comments Hepatitis C Virus (HCV) Screening 1979 TdaP Immunization 1980 Hepatitis B Immunization (1 of 3 - 19+ 3-dose series) 06/16/1998 Pap Smear 06/16/2000 Cervical Cancer Screening (CCS) 06/16/2009 HPV/Cotest 06/16/2009 Cologuard 06/16/2024 Colonoscopy 06/16/2024 Colorectal Cancer Screening 06/16/2024 Immunochemical Fecal Occult Blood 06/16/2024 Influenza Immunization (#1) 2024 SARS-COV-2 Immunization ( season) 2024 Mammogram 03/31/2025 03/31/2024, 03/11, 11/04/2022, Additional history exists Respiratory Syncytial Virus (RSV) Immunization (Adult) (1 - 1-dose 75+ series) 06/16/2054 Discussion re Starting/Frequency of Mammograms Completed 03/31/2024, 11/04/2022, 05/07/2022 Human Papillomavirus (HPV) Immunization (No Doses Required) Completed Meningococcal Immunization (ACWY) Aged Out No longer eligible based on patient's age to complete this topic Pneumococcal Immunization Combined Aged Out No longer eligible based on patient's age to complete this topic Rotavirus Immunization Aged Out No lo nger eligible based on patient's age to complete this topic Procedures Procedure Name Priority Date/Time Associated Diagnosis Comments CBC WITH AUTO DIFF [place] Routine 12/30/2024 2:04 PM CDT COMP. METABOLIC PANEL [id number] [place] Routine 12/30/2024 2:04 PM CDT IRON AND TIBC [id number] [place] Routine 12/30/2024 2:04 PM CDT FERRITIN [id number] [place] Routine 12/30/2024 2: 04 PM CDT from Last 3 Months Results * (ABNORMAL) IRON AND TIBC [id number] [place] (12/30/2024 2:04 PM CDT) Iron Bind.Cap.(TIBC) 229(L) 250 - 450 UG/DL [facility] UIBC 201 131 - 425 UG/DL [facility] Iron, Serum 28 27 - 159 UG/DL [facility] Iron Saturation 12(L) 15 - 55 % [facility] 12/30/2024 2:04 PM CDT [facility] - 12/31/2024 7:09 AM CDT TESTING PERFORMED AT: [CB] [facility], [address] [place] [address], [id number], PHONE: [phone], DISTILLERY MILLER: TONY PRETTY, PHD Tracy Li APRN, INTERLOCKING INSTALLER LAB SEND OUTS Final Result [facility] [place] [address], * (ABNORMAL) FERRITIN [id number] [place] (12/30/2024 2:04 PM CDT) Ferritin, Serum 207(H) 15 - 150 NG/ML [facility] 12/30/2024 2:04 PM CDT [facility] - 12/31/2024 7:09 AM CDT TESTING PERFORMED AT: [] [facility], [address] [place] [address], [place], [address], PHONE: [phone], DISTILLERY MILLER: TONY PRETTY, PHD Tracy Li APRN, INTERLOCKING INSTALLER LAB SEND OUTS Final Result [facility] [address] [address], [place] [phone] * COMP. METABOLIC PANEL [id number] [place] (12/30/2024 2:04 PM CDT) GLUCOSE, SERUM 91 70 - 99 MG/DL [facility] BUN 9 6 - 24 MG/DL [facility] CREATININE, SERUM 0.69 0.57 - 1.00 MG/DL [facility] EGFR 109 >59 ML/MIN/1.7 3 [facility] BUN/CREATININE RATIO 13 9 - 23 [facility] SODIUM, SERUM 141 134 - 144 MMOL/L [facility] POTASSIUM, SERUM 3.9 3.5 - 5.2 MMOL/L [facility] CHLORIDE, SERUM 102 96 - 106 MMOL/L [facility] CARBON DIOXIDE, TOTAL 26 20 - 29 MMOL/L [facility] CALCIUM, SERUM 8.7 8.7 - 10.2 MG/DL [facility] PROTEIN, TOTAL, SERUM 6.5 6.0 - 8.5 G/DL [facility] ALBUMIN, SERUM 3.9 3.9 - 4.9 G/DL [facility] GLOBULIN, TOTAL 2.6 1.5 - 4.5 G/DL [facility] BILIRUBIN, TOTAL 0.6 0.0 - 1.2 MG/DL [facility] ALKALINE PHOSPHATASE, S 63 41 - 116 IU/L [facility] AST (SGOT) 9 0 - 40 IU/L [facility] ALT (SGPT) 5 0 - 32 IU/L [facility] 12/30/2024 2:04 PM CDT Narrative [facility] - 12/31/2024 7:09 AM CDT TESTING PERFORMED AT: [] [facility], [address] [place] [address], [address], PHONE: [phone], DISTILLERY MILLER: TONY PRETTY, PHD Tracy Li APPLICATION SUPPORT ENGINEER, INTERLOCKING INSTALLER LAB SEND OUTS Final Result [facility] [place] [address], * (ABNORMAL) CBC WITH AUTO DIFF [place] (12/30/2024 2:04 PM CDT) WBC 5.2 4.0 - 10.0 10*3/uL [facility] HGB 10.8(L) 11.2 - 15.7 g/dL [facility] HCT 33.7(L) 34.1 - 44.9 % [facility] PLT 290 163 - 369 10*3/uL [facility] MPV 10.8 9.4 - 12.4 fL [facility] RBC 3.75(L) 3.93 - 5.22 10*6/uL [facility] MCV 90 79 - 95 fL [facility] MCH 28.8 25.6 - 32.2 pg [facility] MCHC 32.0(L) 32.2 - 36.5 g/dL [facility] RDW 14.5(H) 11.6 - 14.4 % [facility] Neutrophils % 46.3 36.0 - 66.0 % [facility] Lymphocytes % 45.7(H) 19.0 - 40.0 % [facility] Monocytes % 5.7 4.1 - 12.1 % [facility] Eosinophils % 1.5 0.0 - 3.5 % [facility] Basophils % 0.6 0.0 - 1.0 % [facility] Absolute Neutrophils 2.4 1.4 - 6.6 10*3/uL [facility] Absolute Lymphocytes 2.4 0.8 - 4.0 10*3/uL [facility] Absolute Monocytes 0.3 0.2 - 1.2 10*3/uL [facility] Absolute Eosinophils 0.1 0.0 - 0.4 10*3/uL [facility] Absolute Basophils 0.0 0.0 - 0.1 10*3/uL [facility] 12/30/2024 2:04 PM CDT us Tracy Li APRN, INTERLOCKING INSTALLER LAB SEND OUTS Final Result [facility] [place] [address], from Last 3 Months Insurance MEDICAID [employer] Care Teams Mobile Therapist Relationship Specialty Start Date End Date Juan Geiger MD [address] [facility] [address] [place] [address] PCP - General Internal Medicine 06/03/23 Hazel Marrufo MD [address] [place] [id number] Consulting Physician Oncology 06/03/23
--- OUTSIDE RECORDS SUMMARY | 2025-03-05 07:55 | XMS_ITS | Data Portability ---
Author Organization [facility] BHANUJakub Claire Address [address] [place] [address] Care Team Providers Care Network Support Name Role Phone JUAN GEIGER Primary Care Provider Assessment No assessment recorded. Plan of Treatment Reminders Order Date Submit Date Provider Last Modified By Organization Details Last Modified Time Details Appointments PHONE VISIT 15 2025 02:00P Bill Geiger MD Not available Not available Not available Lab TSH, serum or plasma 2024 025 [facility], [address], [address], [place], [address], 11/04/2024 06:19:17 CBC 2024 025 [facility], [address], [address], [place], [address], 11/04/2024 06:19:19 lipid panel, serum 2024 025 [facility], [address], [address], [place], [address], 11/04/2024 06:19:15 CMP, serum or plasma 2024 025 [facility], [address], [address], [place], [address], 11/04/2024 06:19:16 HbA1c (hemoglob in A1c), blood 2024 025 [facility], [address], [address], [place], [address], 11/04/2024 06:19:18 troponin t cardiac panel, high sensitivi ty method, serum or plasma 2024 025 [facility], [address], [address], [place], [address], 11/18/2024 13:33:42 CK (creatine kinase), total, serum 2024 025 [facility], [address], [address], [place], [address], 11/04/2024 06:19:17 Referral gastroent erologist referral 2024 025 [facility]astro[facility], [address], [address], [place], [address], 08/31/2024 15:32:39 Procedures electroca rdiogram, routine ECG, 12 leads min; interpret ation and report (PROC) 2024 025 [facility] (Cardiology & Emg), [address], [place], [address], 10/28/2024 13:07:15 Surgeries None recorded. Imaging XR, chest, 2 view 2024 025 [facility] (Imaging), [address], [place], [address], 10/28/2024 13:47:45 Medication Orders pantopraz ole 20 mg tablet,de layed release 2024 025 [place] [facility] #[id number], [address] [place] [address], [id number], 02/17/2025 10:51:39 ergocalci ferol (vitamin D2) 1,250 mcg (50,000 unit) capsule 2024 025 [facility] #73547, [address], [place], [id number], 02/17/2025 10:51:38 FeroSul 325 mg (65 mg iron) tablet 2024 025 [facility] #94238, [address], [place], [id number], 02/17/2025 10:51:38 amlodipin e 5 mg tablet 2024 025 [facility] #16364, [address], [place], [id number], 02/17/2025 10:51:39 hydrochlo rothiazid e 25 mg tablet 2024 025 [facility] #30455, [address], [place], [id number], 02/17/2025 10:51:39 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 2024 025 [facility] #75991, [address], [place], [id number], 02/17/2025 10:51:40 fluticaso ne propionat e 50 mcg/actua tion nasal spray,latonia pension 2024 025 [facility] #74184, [address], [place], [id number], 11/24/2024 13:34:51 fexofenad ine 180 mg tablet 2024 025 [facility] #19472, [address], [place], [id number], 11/24/2024 13:34:54 pantopraz ole 20 mg tablet,de layed release 2024 025 [facility]91069, [address], [place], [id number], 11/24/2024 13:34:51 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 2024 025 [facility][id number], [address], [place], [id number], 11/24/2024 13:34:52 pantopraz ole 20 mg tablet,de layed release 2024 025 [facility] #18457, [address], [place], [id number], 10/26/2024 11:20:17 amlodipin e 5 mg tablet 2024 025 [facility] #00717, [address], [place], [id number], 08/24/2024 13:22:48 hydrochlo rothiazid e 25 mg tablet 2024 025 [facility] #06784, [address], [place], [id number], 08/24/2024 13:22:46 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 Patient Instructions Encounter Date Encounter Id Patient Instructions Last Modified By Organization Details Last Modified Time 07/16/2024 [id number] A healthy lifestyle: care instructions balbarcha Not available 07/16/2024 10:27:37 learning about high blood pressure balbarcha Not available 07/16/2024 10:27:37 hypothyroidism: care instructions balbarcha Not available 07/16/2024 10:27:37 body mass index: care instructions balbarcha Not available 07/16/2024 10:27:37 learning about healthy weight balbarcha Not available 07/16/2024 10:27:37 08/24/2024 [id number] A healthy lifestyle: care instructions balbarcha Not available 08/24/2024 13:22:40 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 balbarcha Not available 08/24/2024 13:22:59 10/26/2024 [id number] chest pain: care instructions balbarcha Not available 10/26/2024 11:20:10 A healthy lifestyle: care instructions balbarcha Not available 10/26/2024 11:36:55 learning about high blood pressure balbarcha Not available 10/26/2024 11:36:55 hypothyroidism: care instructions balbarcha Not available 10/26/2024 11:20:10 to go to ER if not better balbarcha Not available 10/26/2024 11:21:02 11/24/2024 [id number] A healthy lifestyle: care instructions balbarcha Not available 11/24/2024 13:36:54 02/17/2025 [id number] A healthy lifestyle: care instructions balbarcha Not available 02/17/2025 11:54:42 learning about high blood pressure balbarcha Not available 02/17/2025 11:54:42 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 Referral for Screening for malignant neoplasm of colon Referring Physician: Juan Geiger, Internal Medicine, Encounter Date: 08/24/2024 Results Created Date Observation Date Name Description Value Unit Range Abnormal Flag Note LastModifiedBy Organization Detail LastModifiedTime 07/02/19 25 07/10/2024 THYRO ID STIMU LATIN G HORMO NE TSH-icma 0.03 uu/mL below low normal Refer ence Range : Non-P regna nt Adult 0.450 -4.50 0 Pregn brent First Trime ster 0.100 -4.00 0 Secon d Trime ster 0.200 -4.00 0 Third Trime ster 0.300 -4.50 0 Not Available [facility] ([facility]) [address], [place], [address], 07/10/2024 10:21:44 07/02/19 25 07/02/2024 TRIIO DOTHY MATTEO E (T3), FREE triiodothyro nine (T3), free 5.4 pg/mL 2.0-4. 4 above high normal Not Available [facility] ([facility]) [address], [place], [address], 07/10/2024 10:21:46 07/02/19 25 07/02/2024 T4,FR EE(DI RECT) T4,free(dire ct) 1.31 NG/dL 0.82-1 .77 Not Available [facility] ([facility]) [address], [place], [address], 07/10/2024 10:21:47 07/07/19 25 07/08/2024 Bacte donna ident ified in Urine by Cultu re bacteria identified in urine by culture Cultur e result (>=3 organi sms presen t) indica andrea possib le contam inatio n. Repeat cultur e if sympto ms indica te. Not Available Not Available 03:12:58 07/07/19 25 07/08/2024 Bacte donna ident ified in Urine by Cultu re interpretati on and review of laboratory results Normal Not Available Not Available 09/08 03:12:58 07/07/19 25 07/06/2024 Bacte donna ident ified in Urine by Cultu re result report SEE RESULT S BELOW resul t repor t Not Available Not Available 07/10/2024 10:37:23 08/05/19 25 08/08/2024 THYRO ID STIMU LATIN G HORMO NE TSH-icma 0.14 uu/mL Refer ence Range : Non-P regna nt Adult 0.450 -4.50 0 Pregn brent First Trime ster 0.100 -4.00 0 Secon d Trime ster 0.200 -4.00 0 Third Trime ster 0.300 -4.50 0 Not Available [facility] [address], [place], [address], 08/08/2024 13:08:52 10/01/1910/01/2024 Iron and Iron dorina ng capac ity panel - Serum or Plasm a iron binding capacity [mass/volume ] in serum or plasma 258 text: 250 - 450 ug/dL Not Available Not Available 10/18/2024 10:33:55 10/01/1910/01/2024 Iron and Iron dorina ng capac ity panel - Serum or Plasm a iron binding capacity.uns aturated [mass/volume ] in serum or plasma 230 text: 131 - 425 ug/dL Not Available Not Available 10/18/2024 10:33:55 10/01/1910/01/2024 Iron and Iron dorina ng capac ity panel - Serum or Plasm a iron [mass/volume ] in serum or plasma 28 text: 27 - 159 ug/dL Not Available Not Available 10/18/2024 10:33:55 10/01/1910/01/2024 Iron and Iron dorina ng capac ity panel - Serum or Plasm a iron saturation [mass fraction] in serum or plasma 11 % low: 15%hig h: 55% low Not Available Not Available 10/18/2024 10:33:55 10/01/1910/01/2024 Iron and Iron dorina ng capac ity panel - Serum or Plasm a no coding or coding display name was found PALMIRA NAJERA AT: [] [facility] Abdirashid SHOSHONE , [address], [place], [address], PHONE: [phone] , [place] [employer] DIRECT OR: SARAH MORTON, PHD Not Available Not Available 10:33:55 10/01/1910/01/2024 Iron and Iron dorina ng capac ity panel - Serum or Plasm a interpretati on and review of laboratory results Abnorm al Not Available Not Available 10:33:55 10/01/1909/30/2024 CBC W Auto Diffe renti al panel - Blood leukocytes [#/volume] in blood by automated count 5.9 10*3/ uL low: 410*3/ uLhigh : 1010*3 /uL Not Available Not Available 10/18/2024 10:33:55 10/01/19 25 09/30/2024 CBC W Auto Diffe renti al panel - Blood hemoglobin [mass/volume ] in blood 11.1 g/dL low: 11.2g/ dLhigh : 15.7g/ dL low Not Available Not Available 10/18/2024 10:33:55 10/01/19 25 09/30/2024 CBC W Auto Diffe renti al panel - Blood hematocrit [volume fraction] of blood by automated count 34.7 % low: 34.1%h igh: 44.9% Not Available Not Available 10/18/2024 10:33:55 10/01/19 25 09/30/2024 CBC W Auto Diffe renti al panel - Blood platelets [#/volume] in blood by automated count 281 10*3/ uL low: 47843* 3/uLhi gh: 31686* 3/uL Not Available Not Available 10/18/2024 10:33:55 10/01/19 25 09/30/2024 CBC W Auto Diffe renti al panel - Blood platelet [entitic mean volume] in blood by automated count 11 fL low: 9.4fLh igh: 12.4fL Not Available Not Available 10/18/2024 10:33:55 10/01/19 25 09/30/2024 CBC W Auto Diffe renti al panel - Blood erythrocytes [#/volume] in blood by automated count 3.88 10*6/ uL low: 3.9310 *6/uLh igh: 5.2210 *6/uL low Not Available Not Available 10/18/2024 10:33:55 10/01/19 25 09/30/2024 CBC W Auto Diffe renti al panel - Blood MCV [entitic mean volume] in red blood cells by automated count 89 fL low: 79fLhi gh: 95fL Not Available Not Available 10/18/2024 10:33:55 10/01/19 25 09/30/2024 CBC W Auto Diffe renti al panel - Blood MCH [entitic mass] by automated count 28.6 pg low: 25.6pg high: 32.2pg Not Available Not Available 10/18/2024 10:33:55 10/01/19 25 09/30/2024 CBC W Auto Diffe renti al panel - Blood MCHC [entitic mass/volume] in red blood cells by automated count 32 g/dL low: 32.2g/ dLhigh : 36.5g/ dL low Not Available Not Available 10/18/2024 10:33:55 10/01/19 25 09/30/2024 CBC W Auto Diffe renti al panel - Blood erythrocyte [distwidth] in red blood cells by automated count 14.6 % low: 11.6%h igh: 14.4% high Not Available Not Available 10/18/2024 10:33:55 10/01/19 25 09/30/2024 CBC W Auto Diffe renti al panel - Blood neutrophils/ leukocytes in blood by automated count 55 % low: 36%hig h: 66% Not Available Not Available 10/18/2024 10:33:55 10/01/19 25 09/30/2024 CBC W Auto Diffe renti al panel - Blood lymphocytes/ leukocytes in blood by automated count 37.6 % low: 19%hig h: 40% Not Available Not Available 10/18/2024 10:33:55 10/01/19 25 09/30/2024 CBC W Auto Diffe renti al panel - Blood monocytes/le ukocytes in blood by automated count 5.4 % low: 4.1%hi gh: 12.1% Not Available Not Available 10/18/2024 10:33:55 10/01/19 25 09/30/2024 CBC W Auto Diffe renti al panel - Blood eosinophils/ leukocytes in blood by automated count 1.3 % low: 0%high : 3.5% Not Available Not Available 10/18/2024 10:33:55 10/01/19 25 09/30/2024 CBC W Auto Diffe renti al panel - Blood basophils/le ukocytes in blood by automated count 0.5 % low: 0%high : 1% Not Available Not Available 10/18/2024 10:33:55 10/01/19 25 09/30/2024 CBC W Auto Diffe renti al panel - Blood neutrophils [#/volume] in blood by automated count 3.3 10*3/ uL low: 1.410* 3/uLhi gh: 6.610* 3/uL Not Available Not Available 10/18/2024 10:33:55 10/01/19 25 09/30/2024 CBC W Auto Diffe renti al panel - Blood lymphocytes [#/volume] in blood by automated count 2.2 10*3/ uL low: 0.810* 3/uLhi gh: 410*3/ uL Not Available Not Available 10/18/2024 10:33:55 10/01/19 25 09/30/2024 CBC W Auto Diffe renti al panel - Blood monocytes [#/volume] in blood by automated count 0.3 10*3/ uL low: 0.210* 3/uLhi gh: 1.210* 3/uL Not Available Not Available 10/18/2024 10:33:55 10/01/19 25 09/30/2024 CBC W Auto Diffe renti al panel - Blood eosinophils [#/volume] in blood by automated count 0.1 10*3/ uL low: 010*3/ uLhigh : 0.410* 3/uL Not Available Not Available 10/18/2024 10:33:55 10/01/19 25 09/30/2024 CBC W Auto Diffe renti al panel - Blood basophils [#/volume] in blood by automated count 0 10*3/ uL low: 010*3/ uLhigh : 0.110* 3/uL Not Available Not Available 10/18/2024 10:33:55 10/01/19 25 09/30/2024 CBC W Auto Diffe renti al panel - Blood interpretati on and review of laboratory results Abnorm al Not Available Not Available 10:33:55 10/01/1909/30/2024 Retic ulocy andrea/E rythr ocyte s in Blood by Autom ated count reticulocyte s/erythrocyt es in blood by automated count 1.59 % low: 0.5%hi gh: 1.7% Not Available Not Available 10/18/2024 10:33:55 10/01/19 25 09/30/2024 Retic ulocy andrea/E rythr ocyte s in Blood by Autom ated count hemoglobin [entitic mass] in reticulocyte s by automated count 31.1 pg low: 28.2pg high: 36.6pg RET-H e is a direc t asses sment of incor porat ion of iron into eryth rocyt e hemog lobin . It provi alfreda an indir ect measu re of the iron avail able for new eryth ropoi esis over past 2-4 days. Not Available Not Available 10/18/2024 10:33:55 10/01/19 25 09/30/2024 Retic ulocy andrea/E rythr ocyte s in Blood by Autom ated count no coding or coding display name was found Releas e to patien t->Imm ediate Not Available Not Available 10:33:55 10/27/19 25 10/27/2024 TROPO NACHO T troponin T(highly sensitive) 6 NG/L 0-14 In order to disti nguis h acute eleva tions of high sensi tive Tropo ancho from other clini kendal condi tions , the Unive rsal Defin ition of myoca rdial infar ction stres ses clini kendal asses sment and the need for seria l measu remen ts to obser ve a rise and/o r fall above the upper limit of the refer ence inter alem. Not Available [facility] [address] [place], [address], 11/04/2024 06:19:14 10/27/19 25 10/27/2024 LIPID PANEL cholesterol, total 176 mg/dL 100-19 9 Not Available [facility] [address] [place], [address], 11/04/2024 06:19:15 10/27/19 25 10/27/2024 LIPID PANEL triglyceride s 67 mg/dL 0-149 Not Available [facility] [address] [place], [address], 11/04/2024 06:19:15 10/27/19 25 10/27/2024 LIPID PANEL HDL cholesterol 66 mg/dL >39 Not Available [facility] [address] [place], [address], 11/04/2024 06:19:15 10/27/19 25 10/27/2024 LIPID PANEL VLDL cholesterol kendal 13 mg/dL 5-40 Not Available [facility] [address] [place], [address], 11/04/2024 06:19:15 10/27/19 25 10/27/2024 LIPID PANEL LDL chol calc ([facility]) 97 mg/dL 0-99 Not Available [facility] [address] [place], [address], 11/04/2024 06:19:15 10/27/19 25 10/26/2024 COMP. METAB OLIC PANEL (14) interpretati on: COMMEN T GFR estim ate at the follo wing level for >or=3 month s is class ified as follo ws: GFR WITH KIDNE Y DAMAG E WITHO UT KIDNE Y DAMAG E >or=9 0 Stage 1 Violet l 60-89 Stage 2 Decr eased GFR 30-59 Stage 3 Stage 3 15-29 Stage 4 Stage 4 <15 (or dialy sis) Stage 5 Stage 5 Estim ated GFR will over estim ate true GFR if serum creat inine is risin g as in acute renal failu re and will under estim ate true GFR if serum creat inine is decli bessy as in resol ving acute renal failu re. Addit ional infor belkys campbell may be found at www.k doqi. org. Not Available [facility] [address] [place], [address], 11/04/2024 06:19:16 10/27/19 25 10/27/2024 COMP. METAB OLIC PANEL (14) glucose 81 mg/dL 70-99 Not Available [facility] [address] [place], [address], 11/04/2024 06:19:16 10/27/19 25 10/27/2024 COMP. METAB OLIC PANEL (14) BUN 7 mg/dL 6-24 Not Available [facility] [address] [place], [address], 11/04/2024 06:19:16 10/27/19 25 10/27/2024 COMP. METAB OLIC PANEL (14) creatinine 0.78 mg/dL 0.57-1 .00 Not Available [facility] [address] [place], [address], 11/04/2024 06:19:16 10/27/19 25 10/27/2024 COMP. METAB OLIC PANEL (14) eGFR 95 mL/mi n/1.7 3 >59 Not Available [facility] [address] [place], [address], 11/04/2024 06:19:16 10/27/19 25 10/27/2024 COMP. METAB OLIC PANEL (14) BUN/creatini ne ratio 9 9-23 Not Available [facility] [address] [place], [address], 11/04/2024 06:19:16 10/27/19 25 10/27/2024 COMP. METAB OLIC PANEL (14) sodium 141 mmol/ L 134-14 4 Not Available [facility] [address] [place], [address], 11/04/2024 06:19:16 10/27/19 25 10/27/2024 COMP. METAB OLIC PANEL (14) potassium 4.1 mmol/ L 3.5-5. 2 Not Available [facility] [address] [place], [address], 11/04/2024 06:19:16 10/27/19 25 10/27/2024 COMP. METAB OLIC PANEL (14) chloride 104 mmol/ L 96-106 Not Available [facility] [address] [place], [address], 11/04/2024 06:19:16 10/27/19 25 10/27/2024 COMP. METAB OLIC PANEL (14) carbon dioxide, total 24 mmol/ L 20-29 Not Available [facility] [address] [place], [address], 11/04/2024 06:19:16 10/27/19 25 10/27/2024 COMP. METAB OLIC PANEL (14) calcium 9.6 mg/dL 8.7-10 .2 Not Available [facility] [address] [place], [address], 11/04/2024 06:19:16 10/27/19 25 10/27/2024 COMP. METAB OLIC PANEL (14) protein, total 7.1 g/dL 6.0-8. 5 Not Available [facility] [address] [place], [address], 11/04/2024 06:19:16 10/27/19 25 10/27/2024 COMP. METAB OLIC PANEL (14) albumin 4.2 g/dL 3.9-4. 9 Not Available [facility] [address] [place], [address], 11/04/2024 06:19:16 10/27/19 25 10/27/2024 COMP. METAB OLIC PANEL (14) globulin, total 2.9 g/dL 1.5-4. 5 Not Available [facility] [address] [place], [address], 11/04/2024 06:19:16 10/27/19 25 10/27/2024 COMP. METAB OLIC PANEL (14) bilirubin, total 0.7 mg/dL 0.0-1. 2 Not Available [facility] [address] [place], [address], 11/04/2024 06:19:16 10/27/19 25 10/27/2024 COMP. METAB OLIC PANEL (14) alkaline phosphatase 68 IU/L 44-121 Not Available [facility] [address] [place], [address], 11/04/2024 06:19:16 10/27/1910/27/2024 COMP. METAB OLIC PANEL (14) AST (SGOT) 10 IU/L 0-40 Not Available [facility] [address] [place], [address], 11/04/2024 06:19:16 10/27/1910/27/2024 COMP. METAB OLIC PANEL (14) ALT (SGPT) <5 IU/L 0-32 Janice ified by repea t dionne sis Not Available [facility] [address] [place], [address], 11/04/2024 06:19:16 10/27/1911/03/2024 THYRO ID STIMU LATIN G HORMO NE TSH-icma 10 uu/mL above high normal Refer ence Range : Non-P regna nt Adult 0.450 -4.50 0 Pregn brent First Trime ster 0.100 -4.00 0 Secon d Trime ster 0.200 -4.00 0 Third Trime ster 0.300 -4.50 0 Not Available [facility] [address] [place], [address], 11/04/2024 06:19:17 10/27/1910/27/2024 CK, TOTAL creatine kinase,total 49 U/L 32-182 Not Available [facility] [address] [place], [address], 11/04/2024 06:19:17 10/27/1910/27/2024 HEMOG LOBIN A1C hemoglobin A1C 4.9 % 4.8-5. 6 Predi abete s: 5.7 - 6.4 Diabe andrea: >6.4 Glyce laine contr ol for adult s with diabe andrea: <7.0 Not Available [facility] [address] [place], [address], 11/04/2024 06:19:18 10/27/1910/26/2024 CBC, PLATE LET, NO DIFFE RENTI AL WBC 4.6 x10e3 /uL 3.4-10 .8 Not Available [facility] [address] [place], [address], 11/04/2024 06:19:19 10/27/1910/26/2024 CBC, PLATE LET, NO DIFFE RENTI AL RBC 4.54 x10e6 /uL 3.77-5 .28 Not Available [facility] [address] [place], [address], 11/04/2024 06:19:19 10/27/1910/26/2024 CBC, PLATE LET, NO DIFFE RENTI AL hemoglobin 12.9 g/dL 11.1-1 5.9 Not Available [facility] [address] [place], [address], 11/04/2024 06:19:19 10/27/1910/26/2024 CBC, PLATE LET, NO DIFFE RENTI AL hematocrit 41.8 % 34.0-4 6.6 Not Available [facility] [address] [place], [address], 11/04/2024 06:19:19 10/27/1910/26/2024 CBC, PLATE LET, NO DIFFE RENTI AL MCV 92 fL 79-97 Not Available [facility] [address] [place], [address], 11/04/2024 06:19:19 10/27/1910/26/2024 CBC, PLATE LET, NO DIFFE RENTI AL MCH 28.4 pg 26.6-3 3.0 Not Available [facility] [address] [place], [address], 11/04/2024 06:19:19 10/27/19 25 10/26/2024 CBC, PLATE LET, NO DIFFE RENTI AL MCHC 30.9 g/dL 31.5-3 5.7 below low normal Not Available [facility] [address] [place], [address], 11/04/2024 06:19:19 10/27/19 25 10/26/2024 CBC, PLATE LET, NO DIFFE RENTI AL RDW 14.0 % 11.7-1 5.4 Not Available [facility] [address] [facility], [place], [address], 11/04/2024 06:19:19 10/27/19 25 10/26/2024 CBC, PLATE LET, NO DIFFE RENTI AL platelets 257 x10e3 /uL 150-45 0 Not Available [facility] [address] [place], [address], 11/04/2024 06:19:19 12/31/1912/31/2024 iron + total iron- dorina ng capac ity (TIBC ), serum TIBC (total iron-binding capacity), serum 229 text: 250 - 450 ug/dL low Not Available Not Available 01/05/2025 03:53:18 12/31/19 25 12/31/2024 iron + total iron- dorina ng capac ity (TIBC ), serum iron-binding capacity, unsaturated, serum 201 text: 131 - 425 ug/dL Not Available Not Available 01/05/2025 03:53:18 12/31/19 25 12/31/2024 iron + total iron- dorina ng capac ity (TIBC ), serum iron, serum 28 text: 27 - 159 ug/dL Not Available Not Available 01/05/2025 03:53:18 12/31/19 25 12/31/2024 iron + total iron- dorina ng capac ity (TIBC ), serum iron saturation, serum 12 % low: 15%hig h: 55% low Not Available Not Available 01/05/2025 03:53:18 12/31/1912/31/2024 iron + total iron- dorina ng capac ity (TIBC ), serum no coding or coding display name was found PALMIRA Montero ZENA NAJERA AT: [CB] [facility] Abdirashid HERRERA , [address], [place], [address], PHONE: , [place] [employer] DIRECT OR: SARAH DE LA CRUZ UTI, PHD Not Available Not Available 03:53:18 12/31/1912/31/2024 iron + total iron- dorina ng capac ity (TIBC ), serum lab interpretati on Abnorm al Not Available Not Available 03:53:18 12/31/1912/31/2024 CMP, serum or plasm a glucose, qn [mass/volume ], serum or plasma 91 text: 70 - 99 mg/dL Not Available Not Available 01/05/2025 03:53:18 12/31/1912/31/2024 CMP, serum or plasm a BUN (blood urea nitrogen), serum or plasma 9 text: 6 - 24 mg/dL Not Available Not Available 01/05/2025 03:53:18 12/31/1912/31/2024 CMP, serum or plasm a creatinine, serum or plasma 0.69 text: 0.57 - 1.00 mg/dL Not Available Not Available 01/05/2025 03:53:18 12/31/1912/31/2024 CMP, serum or plasm a glomerular filtration rate/1.73 sq M predicted, qn, creatinine based formula (CKD-epi 2020), serum or plasma or blood 109 text: >59 mL/min /1.73 Not Available Not Available 01/05/2025 03:53:18 12/31/1912/31/2024 CMP, serum or plasm a BUN/creatini ne, ratio, serum 13 low: 9high: 23 Not Available Not Available 01/05/2025 03:53:18 12/31/1912/31/2024 CMP, serum or plasm a sodium, serum or plasma 141 text: 134 - 144 mmol/L Not Available Not Available 01/05/2025 03:53:18 12/31/1912/31/2024 CMP, serum or plasm a potassium, serum or plasma 3.9 text: 3.5 - 5.2 mmol/L Not Available Not Available 01/05/2025 03:53:18 12/31/1912/31/2024 CMP, serum or plasm a chloride, serum or plasma 102 text: 96 - 106 mmol/L Not Available Not Available 01/05/2025 03:53:18 12/31/1912/31/2024 CMP, serum or plasm a CO2, (carbon dioxide), total, serum or plasma 26 text: 20 - 29 mmol/L Not Available Not Available 01/05/2025 03:53:18 12/31/1912/31/2024 CMP, serum or plasm a calcium, serum or plasma 8.7 text: 8.7 - 10.2 mg/dL Not Available Not Available 01/05/2025 03:53:18 12/31/1912/31/2024 CMP, serum or plasm a protein, total, serum 6.5 text: 6.0 - 8.5 g/dL Not Available Not Available 01/05/2025 03:53:18 12/31/1912/31/2024 CMP, serum or plasm a albumin, serum or plasma 3.9 text: 3.9 - 4.9 g/dL Not Available Not Available 01/05/2025 03:53:18 12/31/1912/31/2024 CMP, serum or plasm a globulin, qn, calculated, serum 2.6 text: 1.5 - 4.5 g/dL Not Available Not Available 01/05/2025 03:53:18 12/31/1912/31/2024 CMP, serum or plasm a bilirubin, total, serum or plasma 0.6 text: 0.0 - 1.2 mg/dL Not Available Not Available 01/05/2025 03:53:18 12/31/1912/31/2024 CMP, serum or plasm a alkaline phosphatase, serum or plasma 63 text: 41 - 116 IU/L Not Available Not Available 01/05/2025 03:53:18 12/31/1912/31/2024 CMP, serum or plasm a AST/SGOT (aspartate aminotransfe rase), serum or plasma 9 text: 0 - 40 IU/L Not Available Not Available 01/05/2025 03:53:18 12/31/19 25 12/31/2024 CMP, serum or plasm a ALT (alanine aminotransfe rase), serum or plasma 5 text: 0 - 32 IU/L Not Available Not Available 01/05/2025 03:53:18 12/31/19 25 12/31/2024 CMP, serum or plasm a no coding or coding display name was found PALMIRA NAJERA AT: [] VAIBHAVCOR Abdirashid SHOSHONE , [address] [place], [address], PHONE: , JACINTADiana MARY KATEInocencio DIRECT OR: SARAH MORTON, PHD Not Available Not Available 03:53:18 12/31/1912/30/2024 CBC w/ auto diff WBC, auto, blood 5.2 10*3/ uL low: 410*3/ uLhigh : 1010*3 /uL Not Available Not Available 01/05/2025 03:53:18 12/31/1912/30/2024 CBC w/ auto diff hemoglobin (Hb), blood 10.8 g/dL low: 11.2g/ dLhigh : 15.7g/ dL low Not Available Not Available 01/05/2025 03:53:18 12/31/1912/30/2024 CBC w/ auto diff hematocrit, automated count, blood 33.7 % low: 34.1%h igh: 44.9% low Not Available Not Available 01/05/2025 03:53:18 12/31/1912/30/2024 CBC w/ auto diff platelets, auto, blood 290 10*3/ uL low: 03019* 3/uLhi gh: 91754* 3/uL Not Available Not Available 01/05/2025 03:53:18 12/31/1912/30/2024 CBC w/ auto diff platelet mean volume, qn, automated, blood (obs) 10.8 fL low: 9.4fLh igh: 12.4fL Not Available Not Available 01/05/2025 03:53:18 12/31/19 25 12/30/2024 CBC w/ auto diff RBC count, blood 3.75 10*6/ uL low: 3.9310 *6/uLh igh: 5.2210 *6/uL low Not Available Not Available 01/05/2025 03:53:18 12/31/19 25 12/30/2024 CBC w/ auto diff MCV, blood 90 fL low: 79fLhi gh: 95fL Not Available Not Available 01/05/2025 03:53:18 12/31/19 25 12/30/2024 CBC w/ auto diff MCH, qn, automated (obs) 28.8 pg low: 25.6pg high: 32.2pg Not Available Not Available 01/05/2025 03:53:18 12/31/19 25 12/30/2024 CBC w/ auto diff MCHC, qn, automated (obs) 32 g/dL low: 32.2g/ dLhigh : 36.5g/ dL low Not Available Not Available 01/05/2025 03:53:18 12/31/19 25 12/30/2024 CBC w/ auto diff erythrocyte distribution width, ratio, automated (obs) 14.5 % low: 11.6%h igh: 14.4% high Not Available Not Available 01/05/2025 03:53:18 12/31/19 25 12/30/2024 CBC w/ auto diff neutrophils/ 100 leukocytes, automated, blood (obs) 46.3 % low: 36%hig h: 66% Not Available Not Available 01/05/2025 03:53:18 12/31/19 25 12/30/2024 CBC w/ auto diff lymphocytes/ 100 leukocytes, automated, blood (obs) 45.7 % low: 19%hig h: 40% high Not Available Not Available 01/05/2025 03:53:18 12/31/19 25 12/30/2024 CBC w/ auto diff monocytes/10 0 leukocytes, automated, blood (obs) 5.7 % low: 4.1%hi gh: 12.1% Not Available Not Available 01/05/2025 03:53:18 12/31/19 25 12/30/2024 CBC w/ auto diff eosinophils/ 100 leukocytes, automated, blood (obs) 1.5 % low: 0%high : 3.5% Not Available Not Available 01/05/2025 03:53:18 12/31/19 25 12/30/2024 CBC w/ auto diff basophils/10 0 leukocytes, automated, blood (obs) 0.6 % low: 0%high : 1% Not Available Not Available 01/05/2025 03:53:18 12/31/19 25 12/30/2024 CBC w/ auto diff neutrophil count, absolute (anc), blood (obs) 2.4 10*3/ uL low: 1.410* 3/uLhi gh: 6.610* 3/uL Not Available Not Available 01/05/2025 03:53:18 12/31/19 25 12/30/2024 CBC w/ auto diff lymphocytes, quantitative , blood, automated count (obs) 2.4 10*3/ uL low: 0.810* 3/uLhi gh: 410*3/ uL Not Available Not Available 01/05/2025 03:53:18 12/31/19 25 12/30/2024 CBC w/ auto diff monocytes, count, automated, blood (obs) 0.3 10*3/ uL low: 0.210* 3/uLhi gh: 1.210* 3/uL Not Available Not Available 01/05/2025 03:53:18 12/31/19 25 12/30/2024 CBC w/ auto diff eosinophils, auto, blood, absolute 0.1 10*3/ uL low: 010*3/ uLhigh : 0.410* 3/uL Not Available Not Available 01/05/2025 03:53:18 12/31/19 25 12/30/2024 CBC w/ auto diff basophils, quant, auto, blood (obs) 0 10*3/ uL low: 010*3/ uLhigh : 0.110* 3/uL Not Available Not Available 01/05/2025 03:53:18 12/31/19 25 12/30/2024 CBC w/ auto diff lab interpretati on Abnorm al Not Available Not Available 03:53:18 10/28/19 25 10/27/2024 elect jessica diogr am, routi ne ECG, 12 leads min; inter preta tion and repor t (PROC ) No observ ation record ed. [facility] (Cardiology & Emg) [address], [place], [address], 10/28/2024 14:21:19 10/29/19 25 10/27/2024 XR, chest , 2 view No observ ation record ed. [facility] [address], [place], [address], 10/29/2024 12:33:01 Result Notes None recorded. Problems Name Problem SNOMED Code Status Onset Date Resolution Date Notes Provider Name and Address Organization Details Recorded Time Essential hypertension 39255473 Active Juan Geiger MD Attn: Christine montero,[address] [facility], [place], [address], [facility] 5 16:56:44 Hypothyroidism 50164290 Active Juan Geiger MD Attn: Christine montero,[address] [facility], [place], [address], [facility] 5 16:56:44 Obesity 178273200 Active Juan Geiger MD Attn: Christine montero,[address] [facility], [place], [address], [place] - [facility] 5 16:56:44 Urinary incontinence 968821620 Active Juan Geiger MD Attn: Christine montero,[address] [facility], [place], [address], [place] - [facility] 5 13:35:47 Pain in upper limb 210946483 Active had neg work up before . Juan Geiger MD Attn: Christine montero,[address] [facility], [place], [address], [place] - [facility] 5 16:56:44 Otalgia 06148740 Active 2019 Juan Geiger MD Attn: Christine montero,[address] [facility], [place], [address], [place] - [facility] 0 11:31:35 COVID-19 422478032 Active 2021 Juan Geiger MD Attn: Christine montero,[address] [place], [address], [place] - [facility] 2 11:07:15 Deficiency anemias 099473084 Active 2022 Juan Geiger MD Attn: Christine montero,[address] [facility], [place], [address], [place] - [facility] 3 09:19:34 Skin lesion 54099103 Active 2023 Juan Geiger MD Attn: Osvaldoricardo montero,[address] [facility], [place], [address], [place] - [facility] 4 11:30:47 Excessive salivation 81110155 Active 2024 Juan Geiger MD Attn: Christine montero,[address] [facility], [place], [address], [place] - [facility] 5 13:35:48 Problem Notes None recorded. Medical Equipment None Reported. Allergies Allergen ID Allergen Name Allergen Category Reaction Reaction Severity Criticality Documentation Date Start Date Code Code System Note Provider Name and Address Organization Details Recorded Time 20920809 diphenhyd ramine hydrochlo ride medicatio n hives Not available Not available 01/05/20252024 1362 RxNorm Not Available jules - External Data Service - prod 5 03:53:15 Medications Name Sig Start Date Stop Date Status Note LastModified by Organization Details LastModified Time cyclobenzap rine 10 mg tablet 04/14 completed Not Available Not Available Not Available amoxicillin 500 mg capsule 10/11 completed Not Available Not Available Not Available [place] Thyroid 60 mg tablet Take 1 tablet every day by oral route for 30 days. 12/28 completed Not Available Not Available Not Available fluconazole 100 mg tablet 02/24 completed Not Available Not Available Not Available nystatin 100,000 unit/mL oral suspension SWISH AND SWALLOW 5 ML BY MOUTH FOUR TIMES DAILY 12/20 completed Not Available Not Available Not Available doxycycline hyclate 100 mg capsule 04/14 completed Not Available Not Available Not Available clindamycin HCl 300 mg capsule TAKE 1 CAPSULE BY MOUTH THREE TIMES DAILY FOR 7 DAYS active Not Available Not Available No t Available loperamide 2 mg capsule 05/29 completed Not Available Not Available Not Available cetirizine 10 mg tablet 04/14 completed Not Available Not Available Not Available oxybutynin chloride ER 10 mg tablet,exte nded release 24 hr TAKE 1 TABLET BY MOUTH DAILY active Not Available Not Available No t Available fosfomycin tromethamin e 3 gram oral packet MIX 1 PACKET IN 4OZ OF WATER AND TAKE BY MOUTH FOR 1 DOSE active Not Available Not Available No t Available ibuprofen 800 mg tablet TAKE 1 TABLET BY MOUTH EVERY 8 HOURS WITH FOOD NEEDED FOR PAIN 02/22 completed Not Available Not Available Not Available fluconazole 150 mg tablet 08/19 completed Not Available Not Available Not Available metoprolol succinate ER 50 mg tablet,exte nded release 24 hr TAKE 1 TABLET BY MOUTH EVERY DAY FOR 30 DAYS 04/08 completed Not Available Not Available Not Available amoxicillin 250 mg-potassiu m clavulanate 62.5 mg/5 mL oral suspension SHAKE LIQUID AND TAKE 17.5 ML BY MOUTH EVERY 12 HOURS FOR 10 DAYS. DISCARD REMAINDER active Not Available Not Available No t Available Nystop 100,000 unit/gram topical powder APPLY TO THE AFFECTED AREA TWICE DAILY 09/05 completed Not Available Not Available Not Available ondansetron HCl 8 mg tablet 09/05 completed Not Available Not Available Not Available fluconazole 200 mg tablet TAKE 1 TABLET BY MOUTH EVERY OTHER DAY FOR 3 DOSES 06/29 completed Not Available Not Available Not Available phenazopyri dine 200 mg tablet 09/05 completed Not Available Not Available Not Available metronidazo le 0.75 % (37.5 mg/5 gram) vaginal gel INSERT ONE APPLICATO RFUL VAGINALLY AT BEDTIME FOR 5 NIGHT 12/20 completed Not Available Not Available Not Available prednisone 20 mg tablet 09/05 completed Not Available Not Available Not Available clindamycin HCl 150 mg capsule TAKE 1 CAPSULE BY MOUTH THREE TIMES DAILY FOR 7 DAYS active Not Available Not Available No t Available penicillin V potassium 500 mg tablet 02/24 completed Not Available Not Available Not Available metronidazo le 500 mg tablet TAKE 1 TABLET BY MOUTH EVERY 12 HOURS 12/20 completed Not Available Not Available Not Available amlodipine 5 mg tablet TAKE 1 TABLET BY MOUTH EVERY DAY active Not Available Not Available No t Available ciprofloxac in 500 mg tablet TAKE 1 TABLET BY MOUTH EVERY 12 HOURS 12/20 completed Not Available Not Available Not Available triamcinolo ne acetonide 0.1 % topical cream APPLY THIN LAYER TOPICALLY TO THE AFFECTED AREA TWICE DAILY 02/22 completed Not Available Not Available Not Available nitrofurant oin 25 mg/5 mL oral suspension TAKE 10 ML BY MOUTH EVERY 12 HOURS FOR 7 DAYS. DISCARD REMAINDER active Not Available Not Available No t Available pantoprazol e 20 mg tablet,mayra yed release TAKE 1 TABLET BY MOUTH EVERY DAY active Not Available Not Available No t Available amoxicillin 400 mg-potassiu m clavulanate 57 mg/5 mL oral suspension SHAKE LIQUID AND TAKE 10 ML BY MOUTH EVERY 12 HOURS FOR 7 DAYS. DISCARD REMAINDER 11/24 completed Not Available Not Available Not Available levothyroxi ne 100 mcg tablet Take 1 tablet every day by oral route for 30 days. 10/11 completed Not Available Not Available Not Available Deep Sea Nasal 0.65 % spray aerosol 02/22 completed Not Available Not Available Not Available tolterodine 2 mg tablet Take 1 tablet twice a day by oral route. 02/24 completed Not Available Not Available Not Available phenazopyri dine 100 mg tablet TAKE 1 TABLET BY MOUTH THREE TIMES DAILY NEEDED FOR URINARY BURNING OR URGENCY. FREQUENCY 09/05 completed Not Available Not Available Not Available cephalexin 500 mg capsule TAKE 1 CAPSULE BY MOUTH TWICE DAILY 06/29 completed Not Available Not Available Not Available pantoprazol e 40 mg tablet,mayra yed release TAKE 1 TABLET BY MOUTH EVERY DAY 05/29 completed Not Available Not Available Not Available erythromyci n 5 mg/gram (0.5 %) eye ointment APPLY 1 CM RIBBON INTO THE LOWER CONJUNCTI ALEM SAC(S) IN THE AFFECTED EYE(S) BY OPHTHALMI C ROUTE 3 TIMES PER DAY 08/19 completed Not Available Not Available Not Available levothyroxi ne 125 mcg tablet TAKE ONE TABLET BY MOUTH ONCE DAILY 02/24 completed Not Available Not Available Not Available nystatin 100,000 unit/gram topical cream 04/14 completed Not Available Not Available Not Available ranitidine 150 mg tablet TAKE 1 TABLET BY MOUTH TWICE DAILY 06/09 completed Not Available Not Available Not Available levothyroxi ne 150 mcg tablet Take 1 tablet every day by oral route. 02/24 completed Not Available Not Available Not Available hydrochloro thiazide 12.5 mg capsule TAKE 1 CAPSULE BY MOUTH EVERY DAY 05/28 completed Not Available Not Available Not Available omeprazole 20 mg capsule,del ayed release Take 1 capsule every day by oral route. 05/29 completed Not Available Not Available Not Available hydrochloro thiazide 25 mg tablet TAKE 1 TABLET BY MOUTH EVERY DAY active Not Available Not Available No t Available [place]mo Thyroid 30 mg tablet Take 1 tablet every day by oral route for 30 days. 04/14 completed Not Available Not Available Not Available ergocalcife rol (vitamin D2) 1,250 mcg (50,000 unit) capsule TAKE ONE CAPSULE BY MOUTH ONCE A WEEK active Not Available Not Available No t Available ketoconazol e 2 % topical cream APPLY TOPICALLY TO THE AFFECTED AREA EVERY DAY 05/29 completed Not Available Not Available Not Available oxybutynin chloride 5 mg tablet TAKE 1 TABLET BY MOUTH TWICE DAILY 02/22 completed Not Available Not Available Not Available ondansetron 4 mg disintegrat ing tablet 09/05 completed Not Available Not Available Not Available fluticasone propionate 50 mcg/actuati on nasal spray,suspe nsion SHAKE LIQUID AND USE 1 SPRAY IN EACH NOSTRIL EVERY DAY active Not Available Not Available No t Available loratadine 10 mg tablet TAKE 1 TABLET BY MOUTH EVERY DAY 02/22 completed Not Available Not Available Not Available levothyroxi ne 112 mcg tablet TAKE 1 TABLET BY MOUTH EVERY DAY 06/29 completed Not Available Not Available Not Available amoxicillin 875 mg-potassiu m clavulanate 125 mg tablet TAKE 1 TABLET BY MOUTH TWICE DAILY 01/04 completed Not Available Not Available Not Available neomycin-po lymyxin-hyd rocort 3.5 mg-10,000 unit/mL-1 % ear drops,susp 04/14 completed Not Available Not Available Not Available Ciprodex 0.3 %-0.1 % ear drops,suspe nsion 04/08 completed Not Available Not Available Not Available nitrofurant oin monohydrate /macrocryst als 100 mg capsule TAKE 1 CAPSULE BY MOUTH EVERY 12 HOURS FOR 7 DAYS 06/29 completed Not Available Not Available Not Available FeroSul 325 mg (65 mg iron) tablet TAKE 1 TABLET BY MOUTH TWICE DAILY 2024 active Not Available Not Available Not 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 TAKE 1 TABLET BY MOUTH EVERY DAY 2024 active Not Available Not Available Not Avai lable Allergy Relief (fexofenadi ne) 180 mg tablet TAKE 1 TABLET BY MOUTH EVERY DAY active Not Available Not Available No t Available BinaxNOW COVID-19 Ag Self Test kit TEST DIRECTED TODAY active Not Available Not Available No t Available Vitals Date Recorded Body height Body mass index (BMI) Body weight Provider Name and Address Organization Details Last Updated DateTime 07/16/2024 162.56 cm 38.3 kg/m2 627384.1 g Mala Zhu MA [facility] 07/16/2024 09:53:33 Date Recorded Body height Body mass index (BMI) Body weight Heart rate Respiratory rate Body temperature Oxygen saturation Systolic And Diastolic Provider Name and Address Organization Details Last Updated DateTime 5 162.56 cm 37.4 kg/m2 35082.5 7 g 84 /min 18 /min 98.8 [degF] 100 % 113/82 mm[Hg] Esme Crain MA [facility] 13:08:46 Date Recorded Body height Body mass index (BMI) Body weight Heart rate Respiratory rate Body temperature Oxygen saturation Systolic And Diastolic Provider Name and Address Organization Details Last Updated DateTime 5 162.56 cm 36.7 kg/m2 73241.0 5 g 88 /min 18 /min 97.8 [degF] 98 % 135/87 mm[Hg] Lily Thorpe MA [facility] 11:04:41 Date Recorded Body height Body mass index (BMI) Body weight Provider Name and Address Organization Details Last Updated DateTime 11/24/2024 162.56 cm 36.6 kg/m2 80894.17 g Lily Thorpe MA [facility] 11/24/2024 12:52:36 Date Recorded Body height Body mass index (BMI) Body weight Heart rate Respiratory rate Body temperature Oxygen saturation Systolic And Diastolic Provider Name and Address Organization Details Last Updated DateTime 12/11/202 5 162.56 cm 37.1 kg/m2 48641.2 4 g 66 /min 18 /min 98.4 [degF] 100 % 131/77 mm[Hg] Lily Thorpe MA [facility] 5 10:29:40 Social History Question Answer Notes LastModified by Organizat ion Details LastModified Time Tobacco Smoking Status Never Smoker Michelle Acuña [facility], [facility] 05/03/2014 13:18:48 Do You Have An Advance Directive? No Information n ot available 05/11/2020 Are You Blind Or Do You Have Difficulty Seeing? No Information n ot available 05/11/2020 What Is Your Level Of Caffeine Consumption? None Information not available 05/11/2020 In The 14 Days Before Symptom Onset, Have You Had Close Contact With A Laboratory-confirm ed COVID-19 While That Case Was Ill? No Information n ot available 05/11/2020 In The 14 Days Before Symptom Onset, Have You Had Close Contact With A Person Who Is Under Investigation For COVID-19 While That Person Was Ill? No Information not available 05/11/2020 Have You Been To An Area Known To Be High Risk For COVID-19? No Information not available 05/11/2020 Are You Deaf Or Do You Have Serious Difficulty Hearing? No Information not available 05/11/2020 What Type Of Diet Are You Following? VEGETARIAN Information n ot available 05/11/2020 What Is The Highest Grade Or Level Of School You Have Completed Or The Highest Degree You Have Received? AF03094-4 Information not available 05/11/2020 Are There Any Guns Present In Your Home? No Information not available 05/11/2020 What Was The Date Of Your Most Recent Tobacco Screening? 02/17/2025 Information not available 02/17/2025 What Is Your Relationship Status? Single Information not available 05/11/2020 Do You Use Your Seat Belt Or Car Seat Routinely? Yes Information not available 08/24/2024 Do You Have Smoke And Carbon Monoxide Detectors In Your Home? No Information not available 05/11/2020 Do You Use Sunscreen Routinely? No Information not available 05/11/2020 Has Tobacco Cessation Counseling Been Provided? No Information not available 08/24/2024 On What Date Was Tobacco Cessation Counseling Provided? 02/17/2025 Information not available 02/17/2025 Sex: Female Functional Status Question Answer Note LastModified by Organizat ion Details LastModified Time Do you use any illicit or recreational drugs? No Information not available 05/11/2020 Do you or have you ever used any other forms of tobacco or nicotine? No Information not available 05/11/2020 What is your level of alcohol consumption? None Information not available 05/11/2020 Are you currently employed? No Information not available 05/11/2020 Are you able to care for yourself independently? Yes Information not available 05/11/2020 What is your exercise level? Occasional Information not available 05/11/2020 Mental Status Question Answer Note LastModified by Organization D etails LastModified Time Do you feel stressed (tense, restless, nervous, or anxious, or unable to sleep at night)? [id number] Information not available 05/11/2020 Family History Relationship Description Onset Age of this Age Resolved Age Notes LastModified by Organization Details LastModified Time Mother Disorder of thyroid gland 55 [email or web address] Not available 2020 10:32:34 Medical History Condition Response Coronary Artery Disease N Other N Atrial Fibrillation N High Blood Pressure Y Thyroid Problems Y Kidney or Bladder Problems N Depression N COPD N Blood Clots N GI Problems N Have you had a mammogram in the last yea r? Y Skin Problems N Anemia N Heart Attack (AR) N Diabetes N Anxiety Disorder N Muscle, Joint, or Bone Problems N Seizures/Epilepsy N Have you had a colonoscopy in the last 1 0 years? N Acid Reflux (GERD) Y Cancer N Stroke N Allergies N Asthma N Have you had a PSA blood test in the las t year? N High Cholesterol N Hepatitis N Liver Disease N Headaches N Osteoporosis N Heart Failure N Gynecological History Statement/Question Response Menses Monthly Y Flow Moderate Date of LMP 08/23/2024 LMP Definite Frequency of Cycle (Q days) 28 On BCP's at Conception? N Obstetrics History GPAL:G 0 P 0 0 0 0 Past Encounters Encounter ID Performer Location Encounter Start Date Encounter Closed Date Diagnosis/Indication Diagnosis SNOMED-CT Code Diagnosis ICD10 Code Diagnosis IMO Codes Diagnosis Note [id number] Juan Geiger MD [facility] (Adult/Fa m Med) [address] [place] [address] 9 05/03/2014 12:49:49 05/03/2014 16:07:16 Essential hypertension 64235479 Hypothyroidism 91255962 TS H was high / will increase synthroid to 125 Obesity 594685125 diet and exercises [id number] Juan Geiger MD [facility] (Adult/Fa m Med) [address] [place] [address] 9 11/24/2014 16:44:16 11/24/2014 17:55:26 Essential hypertension 26651133 Hypothyroidism 74248080 TS H was high / will increase synthroid to 125 Obesity 344557322 diet and exercises Pain in upper limb 713793658 [id number] Juan Geiger MD [facility] (Adult/Fa m Med) [address] [place] [address] 9 01/09/2016 14:24:53 01/11/2016 11:41:54 Hypothyroidism 05545773 E03.9 repeat labs Obesity 173725105 E66.9 diet and exercises Essential hypertension 10335603 I10 out of meds fro few months Morbid obesity 296223353 E66.01 [id number] Juan Geiger MD [facility] (Adult/Fa m Med) [address] [place], [place] [id number] 06/13/2016 15:32:43 06/19/2016 11:58:42 Hypothyroidism 42784114 E03.9 not taking meds on daily basis Obesity 406078344 E66.9 diet and exercises Essential hypertension 53130126 I10 out of meds fro few months Urinary incontinence 165 762594 R32 consult trial of detrol [id number] Juan Geiger MD [facility] (Adult/Fa m Med) [address] [place] [phone] 11/07/2016 12:10:42 11/12/2016 14:14:40 Hypothyroidism 81143202 E03.9 increase synthroid to 150 MCGlabs next visit Obesity 941271345 E66.9 diet and exercises Essential hypertension 64277106 I10 stable [id number] Juan Geiger MD [facility] (Adult/Fa m Med) [address] [place], [place] [address] 01/17/2017 12:02:02 01/20/2017 11:11:39 Hypothyroidism 28929781 E03.9 on synthroid to 150 MCGlabs today Obesity 169273914 E66.9 diet and exercises Essential hypertension 86949562 I10 stable [id number] Juan Geiger MD [facility] (Adult/Fa m Med) [address] [place] [id number] 04/25/2017 12:47:19 04/28/2017 10:34:06 Hypothyroidism 92508773 E03.9 could not tolerate the synthroid 150 MCG--> go back to 125 per pt Obesity 652756310 E66.9 diet and exercises Essential hypertension 48113288 I10 not controlled .not takuing meds?? Vitamin D deficiency 347 53486 E55.9 unable to swallow vit D supplement [id number] Juan Geiger MD [facility] (Adult/Fa m Med) [address] [place] [id number] 06/20/2017 11:16:03 06/23/2017 11:21:00 Hypothyroidism 48986683 E03.9 could not tolerate the synthroid 150 MCG--> go back to 125 per pt Obesity 297252784 E66.9 diet and exercises Essential hypertension 92157716 I10 not controlled . [id number] Juan Geiger MD [facility] (Adult/Fa m Med) [address] [place] [phone] 08/19/2017 14:03:18 08/21/2017 10:44:02 Hypothyroidism 76693316 E03.9 TSH was lowon synthroid 100 mcg dailycheck labsEndocr inology consult Obesity 617369507 E66.9 diet and exercises Essential hypertension 16604627 I10 controlled . [id number] Juan Geiger MD [facility] (Adult/Fa m Med) [address] [place] [address] 11/19/2017 10:12:14 11/19/2017 16:13:02 Hypothyroidism 93251769 E03.9 TSH was low but T3 was normal.con tinue on synthroid 100 mcg daily for now.Endocr inology consult at [facility] next month. Obesity 516261621 E66.9 diet and exercises Essential hypertension 92670953 I10 controlled . [id number] Juan Geiger MD [facility] (Adult/Fa m Med) [address] [place] [address] 02/24/2018 12:08:40 02/24/2018 13:03:02 Essential hypertension 66525127 I10 not controlled .not taking any meds at home. Hypothyroidism 10554914 E03.9 continue on synthroid 100 mcg daily for now. seen byEndocrin ology consult at [facility] Urinary incontinence 165 879476 R32 consult refused detrol Obesity 302955853 E66.9 diet and exercisesa sking to be checked for DM? [id number] Juan Geiger MD [facility] (Adult/Fa m Med) [address] [place] [address] 05/20/2018 15:46:50 05/20/2018 17:26:39 Essential hypertension 31161607 I10 better Obesity 330209702 E66.9 diet and exercisesa sking to be checked for DM? Hypothyroidism 87644134 E03.9 continue on synthroid 100 mcg daily for now. seen byEndocrin ology consult at [facility] next visit Vitamin D deficiency 347 06398 E55.9 unable to swallow vit D supplement [id number] Juan Geiger MD [facility] (Adult/Fa m Med) [address] [place] [address] 07/28/2018 12:29:03 07/28/2018 13:48:31 Hypothyroidism 39970890 E03.9 continue on synthroid 100 mcg daily for now. seen byEndocrin ology consult at [facility] today Essential hypertension 92054800 I10 better [id number] Juan Geiger MD [facility] (Adult/Fa m Med) [address] [place] [address] 01/20/2019 10:27:44 01/20/2019 12:05:21 Hypothyroidism 84808331 E03.9 continue on synthroid 100 mcg daily for now. seen byEndocrin ology consult at [facility] Essential hypertension 04764538 I10 better Obesity 540123962 E66.9 diet and exercises Gastroesop hageal reflux disease 228193974 K21.9 Rhinitis 66745911 J00 hypertroph y R>L nostril [id number] Juan Geiger MD [facility] (Adult/Fa m Med) [address] [place] [address] 04/08/2019 15:53:57 04/08/2019 16:25:42 Obesity 624422731 E66.9 diet and exercises Essential hypertension 41610440 I10 better Hypothyroidism 29640945 E03.9 continue on synthroid 100 mcg daily for now. seen byEndocrin ology consult at [facility] Urinary incontinence 165 388255 R32 consult Rhinitis 54827604 J00 hypertroph y R>L nostril Gastroesop hageal reflux disease 343252246 K21.9 Cough 11112928 R05 [id number] Juan Geiger MD [facility] (Adult/Fa m Med) [address] [place] [address] 06/10/2019 12:02:36 06/10/2019 15:10:23 Essential hypertension 82782105 I10 better Hypothyroidism 91655450 E03.9 continue on synthroid 100 mcg daily for now. seen byEndocrin ology consult at [facility] Obesity 121431350 E66.9 diet and exercises Gastroesop hageal reflux disease 754552421 K21.9 Rhinitis 71577048 J00 hypertroph y R>L nostril [id number] Juan Geiger MD [facility] (Adult/Fa m Med) [address] [place] [address] 07/16/2019 11:21:36 07/16/2019 12:30:43 Otalgia 64846559 H92.03 continue meds. to come to offic next week for physical exam [id number] Juan Geiger MD [facility] (Adult/Fa m Med) [address] [place] [address] 9 07/21/2019 10:24:44 07/21/2019 14:11:26 Otitis media 31134910 H66.91 Acute conjunctivitis 537 11245 H10.011 Hypothyroidism 85735703 E03.9 continue on synthroid 100 mcg daily for now. seen byEndocrin ology consult at [facility] [id number] Juan Geiger MD [facility] (Adult/Fa m Med) [address] [place] [address] 9 08/20/2019 09:51:50 08/20/2019 12:19:16 Hypothyroidism 34511421 E03.9 refused to take Synthroid/ levothyrox ine.. 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 [id number] Juan Geiger MD [facility] (Adult/Fa m Med) [address] [place] [address] 9 09/14/2019 16:00:56 09/16/2019 03:47:09 Hypothyroidism 24201770 E03.9 refused to take Synthroid/ levothyrox ine.. 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 [id number] Juan Geiger MD [facility] (Adult/Fa m Med) [address] [place] [address] 9 09/16/2019 11:55:09 09/21/2019 07:05:33 Essential hypertension 85818885 I10 better Hypothyroidism 73920779 E03.9 just started the new medsall labs discussed. [id number] Juan Geiger MD [facility] (Adult/Fa m Med) [address] [place] [address] 9 10/11/2019 16:01:43 10/21/2019 18:34:04 [id number] Juan Geiger MD [facility] (Adult/Fa m Med) [address] [place] [address] 9 10/12/2019 11:55:52 10/12/2019 17:32:58 Essential hypertension 86301434 I10 better Hypothyroidism 07371255 E03.9 all labs discussed. Gastroesop hageal reflux disease 065524773 K21.9 [id number] Juan Geiger MD [facility] (Adult/Fa m Med) [address] [place] [address] 9 11/12/2019 11:04:05 11/17/2019 07:06:23 Essential hypertension 98545610 I10 better Hypothyroidism 26027417 E03.9 whole tab--> anxietyto start taking Elmo thyroid 1/2 tab oa dayrepeat labs in 1 month Obesity 927964020 E66.9 diet and exercises [id number] Juan Geiger MD [facility] (Adult/Fa m Med) [address] [place] [address] 9 11/17/2019 15:24:34 11/23/2019 08:19:12 Hypothyroidism 86350457 E03.9 whole tab--> anxietyto start taking Elmo thyroid 1/2 tab oa dayrepeat labs in 1 month [id number] Juan Geiger MD [facility] (Adult/Fa m Med) [address] [place] [address] 9 12/14/2019 12:43:22 12/14/2019 16:02:24 Essential hypertension 37665817 I10 better Hypothyroidism 36041038 E03.9 restart Elmo thyroid at 60 mg foster per her requestlab s and ultrasound per her request Obesity 890207708 E66.9 diet and exercises [id number] Juan Geiger MD [facility] (Adult/Fa m Med) [address] [place] [address] 9 01/14/2020 10:27:21 01/14/2020 12:45:30 Essential hypertension 36986272 I10 better Hypothyroidism 57306965 E03.9 restart Elmo thyroid at 60 mg foster per her requestlab s and ultrasound discussedE ndocrine consult Obesity 945851835 E66.9 diet and exercises [id number] Juan Geiger MD [facility] (Adult/Fa m Med) [address] [place] [address] 9 03/15/2020 10:57:45 03/16/2020 13:39:57 Essential hypertension 02684060 I10 better Hypothyroidism 42826004 E03.9 Endocrine consult Obesity 188754975 E66.9 diet and exercises [id number] Juan Geiger MD [facility] (Adult/Fa m Med) [address] [place] [address] 9 03/17/2020 12:18:33 03/30/2020 03:47:35 [id number] Juan Geiger MD [facility] (Adult/Fa m Med) [address] [place] [address] 9 04/14/2020 10:08:02 04/14/2020 11:33:05 Essential hypertension 37568872 I10 better Hypothyroidism 33552500 E03.9 better nowlabs discussedE ndocrine consult Obesity 507097046 E66.9 diet and exercises Vitamin D deficiency 347 30395 E55.9 unable to swallow vit D supplement Rhinitis 78667575 J00 hypertroph y R>L nostril [id number] Juan Geiger MD [facility] (Adult/Fa m Med) [address] [place], [place] [address] 05/11/2020 10:10:25 05/11/2020 14:38:14 Essential hypertension 02194387 I10 better Hypothyroidism 25461775 E03.9 better nowlabs discussedE ndocrine consult--> placed on synthroid 112 mcg--> not taking it. want armorthyro id?? Obesity 169064583 E66.9 diet and exercises [id number] Juan Geiger MD [facility] (Adult/Fa m Med) [address] [place] [address] 9 05/16/2020 12:02:13 05/18/2020 03:47:07 Hyperlipidemia 84125366 E78.5 [id number] Juan Geiger MD [facility] (Adult/Fa m Med) [address] [place] [address] 9 07/12/2020 09:53:09 07/13/2020 08:27:45 Essential hypertension 67630425 I10 better Hypothyroidism 46785138 E03.9 better now labs discussed continue same dose for now [id number] Juan Geiger MD [facility] (Adult/Fa m Med) [address] [place] [address] 07/20/2020 10:14:51 07/20/2020 17:38:31 Essential hypertension 06627846 I10 better Hypothyroidism 10986272 E03.9 better now labs discussed continue same dose for now Obesity 767374595 E66.9 diet and exercises [id number] Juan Geiger MD [facility] (Adult/Fa m Med) [address] [place], [place] [address] 07/26/2020 10:52:45 07/28/2020 03:47:21 Hypothyroidism 38253032 E03.9 better now labs discussed continue same dose for now Pruritic rash 38028316 L 28.2 both knees with itching? [id number] Juan Geiger MD [facility] (Adult/Fa m Med) [address] [place], [place] [address] 9 10/18/2020 11:23:09 10/18/2020 16:02:17 Essential hypertension 05740088 I10 better Hypothyroidism 09210093 E03.9 better now labs discussed continue same dose for now [id number] Juan Geiger MD [facility] (Adult/Fa m Med) [address] [place], [place] [address] 9 12/20/2020 11:22:15 12/20/2020 16:42:37 Essential hypertension 77806403 I10 better Hypothyroidism 07384042 E03.9 better now labs discussed continue same dose for now Obesity 143227488 E66.9 diet and exercises Urinary incontinence 165 400579 R32 consult [id number] Juan Geiger MD [facility] (Adult/Fa m Med) [address] [place], [place] [address] 01/30/2021 10:16:32 01/31/2021 17:36:22 Essential hypertension 35125549 I10 better Hypothyroidism 13713996 E03.9 better now labs discussed continue same dose for now Obesity 890075407 E66.9 diet and exercises Vitamin D deficiency 347 03474 E55.9 unable to swallow vit D supplement [id number] Juan Geiger MD [facility] (Adult/Fa m Med) [address] [place], [place] [address] 03/13/2021 12:00:24 03/13/2021 17:33:18 Essential hypertension 68456602 I10 better Hypothyroidism 21849159 E03.9 not better nowgained a lot of weightlabs discussed increase dose for now/ labs /US [id number] Juan Geiger MD [facility] (Adult/Fa m Med) [address] [place] [address] 9 04/11/2021 11:07:25 04/12/2021 13:33:11 Hypothyroidism 33776099 E03.9 not better nowgained a lot of weightlabs discussed neg [place] Otalgia 32219193 H92.03 continue meds Essential hypertension 47296096 I10 better [id number] Juan Geiger MD [facility] (Adult/Fa m Med) [address] [place] [address] 9 06/29/2021 10:39:06 06/29/2021 13:51:53 Essential hypertension 88157179 I10 better Hypothyroidism 53647255 E03.9 not better nowasking for 90 mg [id number] Juan Geiger MD [facility] (Adult/Fa m Med) [address] [place] [address] 9 07/26/2021 14:32:58 08/02/2021 03:48:56 [id number] Juan Geiger MD [facility] (Adult/Fa m Med) [address] [place] [address] 9 07/27/2021 10:14:34 07/27/2021 12:16:34 Essential hypertension 42092909 I10 better Hypothyroidism 69630530 E03.9 not better nowasking for 90 mg Obesity 527790249 E66.9 diet and exercises Pruritic rash 14863265 L 28.2 both knees with itching? [id number] Juan Geiger MD [facility] (Adult/Fa m Med) [address] [place], [place] [address] 9 09/05/2021 10:06:38 09/05/2021 12:55:40 Essential hypertension 81598740 I10 better Hypothyroidism 36806600 E03.9 Vitamin D deficiency 347 76718 E55.9 unable to swallow vit D supplement Pruritic rash 68562893 L 28.2 both knees with itching? [id number] Juna Geiger MD [facility] (Adult/Fa m Med) [address] [place] [address] 01/04/2022 10:25:13 01/04/2022 16:12:39 Essential hypertension 90120884 I10 better Hypothyroidism 23272721 E03.9 Obesity 786695829 E66.9 diet and exercises COVID-19 495337073 U07.1 last weekbetter nowrefused vaccine [id number] Juan Geiger MD [facility] (Adult/Fa m Med) [address] [place] [address] 05/29/2022 11:15:59 05/29/2022 15:47:44 Essential hypertension 30449232 I10 better Hypothyroidism 93482974 E03.9 Obesity 547033080 E66.9 diet and exercises Urinary incontinence 165 070675 R32 consult Rhinitis 37564474 J00 hypertroph y R>L nostril Gastroesop hageal reflux disease 959065186 K21.9 [id number] Juan Geiger MD [facility] (Adult/Fa m Med) [address] [place] [address] 01/09/2023 12:35:52 01/09/2023 15:38:22 Essential hypertension 36002855 I10 betteraski ng to increase HCTZ Hypothyroidism 73342333 E03.9 Obesity 621091520 E66.9 diet and exercises Urinary incontinence 165 988454 R32 consult Gastroesop hageal reflux disease 381546782 K21.9 [id number] Juan Geiger MD [facility] (Adult/Fa m Med) [address] [place] [address] 05/29/2023 12:00:11 05/29/2023 15:21:17 Body mass index 30+ - obesity 316805644 Z68.35 Deficiency anemias 07551 3007 D53.9 not betterHem- Onc consult for iron transfusio n Essential hypertension 05169663 I10 betteraski ng to increase HCTZ Hypothyroidism 38557404 E03.9 Obesity 353104577 E66.9 diet and exercises Gastroesop hageal reflux disease 073139044 K21.9 [id number] Juan Geiger MD [facility] (Adult/Fa m Med) [address] [place], [place] [address] 9 09/03/2023 10:36:07 09/03/2023 15:28:05 HIV screening declined 8510787297 05374 Z53.20 Skin lesion 49617550 L98 .9 To come to the office tomorrow morning to be seen and evaluated [id number] Juan Geiger MD [facility] (Adult/Fa m Med) [address] [place] [address] 9 09/04/2023 10:05:54 09/04/2023 12:29:44 Skin lesion 78866738 L98.9 small mole left axillaobse rve for nowrefused interventi on [id number] Juan Geiger MD [facility] (Adult/Fa m Med) [address] [place] [address] 9 05/25/2024 12:31:07 05/25/2024 13:46:16 Obesity 193956088 E66.9 diet and exercises Essential hypertension 59992912 I10 betteraski ng to increase HCTZ Deficiency anemias 37685 3007 D53.9 not betterHem- Onc consult for iron transfusio n Hypothyroidism 21108196 E03.9 Screening for malignant neoplasm of colon 280252719 Z12.11 [id number] Juan Geiger MD [facility] (Adult/Fa m Med) [address] [place] [address] 07/16/2024 09:36:39 07/19/2024 09:50:12 Essential hypertension 01219378 I10 betteraski ng to increase HCTZ Non-smoker 6248510 Z78.9 7113979 Body mass index 30+ - obesity 447717795 Z68.38 199727 Obese class II 214822763 1 33863 E66.812 9333683924 diet and exercises Hypothyroidism 27393976 E03.9 low TSH/high R0logsjz that she is taking med on daily basis now??to take one tab every other day/ alternatin g with 1/2 tabrepeat labs in 2 weeks [id number] Juan Geiger MD [facility] (Adult/Fa m Med) [address] [place] [address] 08/24/2024 11:43:26 08/24/2024 15:18:47 Obese class II 9627689286 98264 E66.812 9526430289 diet and exercises Essential hypertension 49527164 I10 better Hypothyroidism 10718717 E03.9 controlled .alternati ng 1/2 tab with full tab on daily basis Screening for malignant neoplasm of colon 327921817 Z12.11 [id number] refused cologuard [id number] Juan Geiger MD [facility] (Adult/Fa m Med) [address] [place] [address] 10/26/2024 10:53:36 10/26/2024 12:38:55 Essential hypertension 70909765 I10 better Obese class II 351513734 1 60667 E66.812 E66.3 7439694412 diet and exercises Hypothyroidism 46607336 E03.9 controlled .alternati ng 1/2 tab with full tab on daily basis Deficiency anemias 27425 3007 D53.9 Hem-Onc consult / had iron transfusio n yesterday Chest pain 89805771 R07. 9 904433 left side with pain in left arm/left axillary area for few monthsno other symptomsno fall or traumano heavy liftingneg examdoubt cardiac / refused to go to ERaing for out-pt Gastroesop hageal reflux disease 990975031 K21.9 [id number] Juan Geiger MD [facility] (Adult/Fa m Med) [address] [place] [address] 11/24/2024 10:13:04 11/24/2024 14:21:48 Obese class II 9684836575 33236 E66.812 E66.3 6354239657 diet and exercises Rhinitis 02915089 J00 hypertroph y R>L nostril Excessive salivation 538 95573 K11.7 520818 mostly when laying down. needs HOD to be elevatedse en in the ER/UCpossi ble GERD v.s Allergy Hypothyroidism 35864631 E03.9 controlled .alternati ng 1/2 tab with full tab on daily basis--> not doing that Gastroesop hageal reflux disease 817636964 K21.9 [id number] Juan Geiger MD [facility] (Adult/Fa m Med) [address] [place] [address] 02/17/2025 10:16:09 02/17/2025 16:26:03 Essential hypertension 25025894 I10 better Obese class II 549140023 1 01072 E66.812 E66.3 0782490758 diet and exercises Obesity 629553164 E66.9 diet and exercises Deficiency anemias 21855 3007 D53.9 Hem-Onc consult / had iron transfusio n yesterday Hypothyroidism 28570620 E03.9 controlled .alternati ng 1/2 tab with full tab on daily basis--> not doing that Gastroesop hageal reflux disease 238908292 K21.9 Health Concerns Section Related Observation LastModified by Organization Detai ls LastModified Time None Recorded Concern Status LastModified by Organization Details LastModified Time None Recorded Advance Directives Directive N: Payers Insurance Date Sequence Insurance Name Policy Number Policy Hall Covered Member ID Hall Member ID Guarantor Name 11/17/2024 1 [facility] ON OR AFTER 09/07/20 (MEDICAID REPLACEMENT - HMO) Sharifa Long [id number] Sharifa Long 05/29/2022 1 [facility] (MEDICAID HMO) [id number] Sharifa Long [id number] Sharifa Long 05/29/2022 1 [facility] - DOS PRIOR TO 2020 (MEDICAID REPLACEMENT - HMO) Sharifa Long [id number] Sharifa Long 02/18/2025 [facility] - DOS ON OR AFTER 20 (MEDICAID REPLACEMENT - HMO) Sharifa Long [id number] Sharifa Long 02/16/2025 1 [place] Sharifa Long [id number] Sharifa Long Notes Date Note Type Note Provider Name and Address Organization Details Recorded Time 07/16/2024 text/html no new complaints Juan Geiger MD Attn: Accounting,[address] [facility], [place], [address], [facility] 07/16/2024 10:28:13 08/24/2024 text/html no new complaints Juan Geiger MD Attn: Accounting,[address] [facility], [place], [address], [facility] 08/24/2024 13:23:28 10/26/2024 text/html hospital F/U Juan Geiger MD Attn: Accounting,[address] [facility], [place], [address], [facility] 10/26/2024 11:21:54 11/24/2024 text/html hospital follow up Juan Geiger MD Attn: Accounting,[address] [facility], [place], [address], [facility] 11/24/2024 13:36:34 02/17/2025 text/html hospital follow up Juan Geiger MD Attn: Accounting,[address] [facility], [place], [address], [facility] 02/17/2025 10:51:58 OBGyn Episode No OBEpisode recorded.
--- OUTSIDE RECORDS SUMMARY | 2025-03-05 07:55 | XMS_ITS | Clinical Summary ---
Author Organization [facility] [employer] Address [address] [place] [address] Care Team Providers Care Data Warehousing Manager Name Role Phone Juan Geiger MD Primary Care Provider [phone] Genie Gan APRN-ACCOUNTING BOOKKEEPER Unavailable Source Comments [facility] [employer],non-owned Affiliates and Associated Physician Practices is amultiple site organization consisting of ambulatory clinics and hospital sitesin [place], [place], [place] and [place]. This disclosure is being madepursuant to the Care Everywhere program and may not contain all information available regarding this patient. Last updated 17.[facility] [employer] Allergies No known active allergies Medications * Be aware that medications may not be up to date on this document. Alwaysverify current medications with the patient. vitamin D, ergocalciferol, (DRISDOL) 86194 UNITS capsuleIndicati ons:Hypovitamin osis D Take 1 (one) capsule by mouth every 7 days 8 Active loratadine (CLARITIN) 10 MG tablet Take 1 (one) tablet by mouth once daily 1 Active amLODIPine (Norvasc) 5 MG tablet amlodipine 5 mg tablet TAKE 1 TABLET BY MOUTH EVERY DAY Active [place] Thyroid 90 MG tablet Take 1 (one) [...] on file Legal Sex Female 10:03 AM PMP Gender Identity Not on file Sexual Orientation Not on file Last Filed Vital Signs Vital Sign Reading Time Taken Comments Blood Pressure 128/88 03/31/2024 11:01 AM PMP Pulse 64 03/31/2024 11:01 AM PMP Temperature 37.4 C (99.3 F) 11/24/2023 9:33 AM CDT Respiratory Rate 18 03/31/2024 11:01 AM PMP Oxygen Saturation 100% 03/31/2024 11:01 AM PMP Inhaled Oxygen Concentration - - Weight 98.4 kg (217 lb) 03/31/2024 11:01 AM PMP Height 162.6 cm (5' 4) 03/31/2024 10:21 AM PMP Body Mass Index 37.25 03/31/2024 10:21 AM PMP Plan of Treatment Health Maintenance Due Date [...] DEPRESSION SCREENING 03/10/2024 COVID-19 VACCINE (1 - 2024-2 6 season) 2024 INFLUENZA VACCINE (#1) 2024 PAP [...] DIAGNOSTIC W [place] Routine 03/31/2024 10:33 AM PMP Abnormal mammogram from Last 3 Months or Most Recently Relevant to Health Maintenance Results * Mammo Bilat Diagnostic W [place] (03/31/2024 10:33 AM PMP) Anatomical Region Laterality Modality Breast Bilateral Mammography 03/31/2024 10:4 8 AM PMP Impressions 03/31/2024 11:00 AM PMP IMPRESSION: 1.Right breast mass at the 11:00 position 3 cm from the nipple is benign. 2.No suspicious mammographic finding in either breast. OVERALL FINAL ASSESSMENT: BI-RADS Category 2: Benign. Annual screening mammography is recommended. > Interpreting Provider: Mando Beasley MD on 03/31/2024 11:00 AM Narrative 03/31/2024 11:00 AM PMP EXAMINATION: BILATERAL DIGITAL DIAGNOSTIC MAMMOGRAM INCLUDING CAD [...] suspicious cystic or solid mass. Syl Deluca SHEET COMBINING OPERATOR-ACCOUNTING BOOKKEEPER MAMMO ORDERABLES Final Re sult from Last 3 Months or Most Recently Relevant to Health Maintenance Insurance Care Teams Data Warehousing Manager Relationship Specialty Start Date End Date Juan Geiger MD [address] [address] PCP - General 01/17/20 Genie Gan, SHEET COMBINING OPERATOR-ACCOUNTING BOOKKEEPER [address] [place] [phone] Nurse Practitioner 11/01/21
--- OUTSIDE RECORDS SUMMARY | 2025-03-05 07:55 | XMS_ITS | Continuity of Care Document ---
Author Organization [facility] Address [address] [place] [address] Care Team Providers Care Vat Tender Name Role Phone JUAN GEIGER Primary Care Provider [phone] Assessment No assessment recorded. Plan of Treatment Reminders Order Date Submit Date Provider Last Modified By Organization Details Last Modified Time Details Appointments PHONE VISIT 15 2025 02:00P Bill Geiger MD Not available Not available Not available Lab None recorded. Referral None recorded. Procedures None recorded. Surgeries None recorded. Imaging None recorded. Medication Orders pantopraz ole 20 mg tablet,de layed release 2024 [place] [id number], [address], [place], [id number], 02/17/2025 10:51:39 ergocalci ferol (vitamin D2) 1,250 mcg (50,000 unit) capsule [address] [facility] #[id number], [address], [place], [id number], 02/17/2025 10:51:38 FeroSul 325 mg (65 mg iron) tablet 2024 [facility] #[id number], [address], [place], [id number], 02/17/2025 10:51:38 amlodipin e 5 mg tablet [address] [facility] #58948, [address], [place], [id number], 02/17/2025 10:51:39 hydrochlo rothiazid e 25 mg tablet [address] [facility] #45910, [address], [place], [id number], 02/17/2025 10:51:39 SUPERVISOR MIXING Thyroid 90 mg tablet [address] [facility] #36635, [address], [place], [id number], 02/17/2025 10:51:40 Patient TargetsNo targets recorded. Patient Instructions Encounter Date Encounter Id Patient Instructions Last Modified By Organization Details Last Modified Time 02/17/2025 [id number] A healthy lifestyle: care [facility] Not available 02/17/2025 11:54:42 learning about high blood pressure [facility] Not available 02/17/2025 11:54:42 Reason for Referral None Reported. Problems Name Problem SNOMED Code Status Onset Date Resolution Date Notes Provider Name and Address Organization Details Recorded Time Essential hypertension [id number] Sandy Geiger MD Attn: Christine montero,[address] [place], [address], [facility] 5 16:56:44 Hypothyroidism [id number] Sandy Geiger MD Attn: Christine montero,[address] [facility], [place], [address], [facility] 5 16:56:44 Obesity [id number] Sandy Geiger MD Attn: Christine montero,[address] [place], [address], [facility] 5 16:56:44 Urinary incontinence [id number] Sandy Geiger MD Attn: Christine montero,[address] [facility], [place], [address], [place] [facility] 5 13:35:47 Pain in upper limb 476064988 Active had neg work up before . Juan Geiger MD Attn: Christine montero,[address] [facility], [place], [address], [place] [facility] 5 16:56:44 Otalgia 60327450 Active 2019 Juan Geiger MD Attn: Christine montero,[address] [facility], [place], [address], [place] [facility] 0 11:31:35 COVID-19 881565359 Active 2021 Juan Geiger MD Attn: Christine montero,[address] [facility], [place], [address], [place] [facility] 2 11:07:15 Deficiency anemias 137946975 Active 2022 Juan Geiger MD Attn: Christine montero,[address] [facility], [place], [address], [place] [facility] 3 09:19:34 Skin lesion 28276123 Active 2023 Juan Geiger MD Attn: Christine montero,[address] [facility], [place], [address], [place] [facility] 4 11:30:47 Excessive salivation 82650710 Active 2024 Juan Geiger MD Attn: Christine montero,[address] [facility], [place], [address], [place] [facility] 5 13:35:48 Problem Notes [...] completed Not Available Not Available Not Available Omega Thyroid 60 mg tablet Take 1 tablet [...] 1 CM RIBBON INTO THE LOWER CONJUNCTI HOMERO SAC(S) IN THE AFFECTED EYE(S) BY OPHTHALMI [...] Not Available Not Available No t Available Omega Thyroid 30 mg tablet Take 1 tablet [...] Not Available Not Available Not Avai lable [employer]PERVIS[employer] MIXING Thyroid 90 mg tablet TAKE 1 TABLET [...] Details Last Updated DateTime 5 162.56 cm 37.1 kg/m2 39517.2 4 g 66 /min 18 /min 98.4 [degF] 100 % 131/77 mm[Hg] Lily Thorpe [place] [facility] 5 10:29:40 Social History Question Answer Notes LastModified by Organizat ion Details LastModified Time Tobacco Smoking Status Never Smoker CARMELLA [place], [place] [facility] 05/03/2014 13:18:48 Do You Have An Advance Directive? No [email or web address] Information n ot available 05/11/2020 Are You [...] Or The Highest Degree You Have Received? KY76793-5 Information not available 05/11/2020 Are There Any [...] anxious, or unable to sleep at night)? [id number] Information not available 05/11/2020 Family History Relationship Description Onset Age of this Age Resolved Age Notes LastModified by Organization Details LastModified Time Mother Disorder of thyroid gland 55 [email or web address] Not available 2020 10:32:34 Medical History Condition Response Coronary Artery Disease N Other N High Blood Pressure Y Atrial Fibrillation N Kidney or Bladder Problems N Thyroid Problems Y GI Problems N Depression N COPD N Blood Clots N Have you had a mammogram in the last yea r? Y Skin Problems N Anemia N Heart Attack ([place]) N Anxiety Disorder N Diabetes N Muscle, Joint, or Bone Problems N Seizures/Epilepsy N Have you had a colonoscopy in the last 1 0 years? N Acid Reflux (GERD) Y Cancer N Stroke N Asthma N Allergies N Have you had a PSA blood [...] ICD10 Code Diagnosis IMO Codes Diagnosis Note [id number] Juan Geiger MD [facility] (Adult/Fa m Med) [address] [place] [address] 02/17/2025 10:16:09 02/17/2025 16:26:03 Essential hypertension 07957915 I10 better Obese class II 409892583 1 87803 E66.812 E66.3 [id number] diet and exercises Obesity 203275573 E66.9 diet and exercises Deficiency anemias 26489 3007 D53.9 Hem-Onc consult / had iron transfusio n yesterday Hypothyroidism 76982993 E03.9 controlled .alternati ng / tab with full tab on daily basis--> not doing that Gastroesop hageal reflux disease 716008557 K21.9 Health Concerns Section Related Observation LastModified by Organization Detai ls LastModified Time None Recorded Concern Status LastModified by Organization Details LastModified Time None Recorded Payers Encounter Date Sequence Insurance Name Policy Number Policy Hall Covered Member ID Hall Member ID Guarantor Name 02/17/2025 1 [place] [employer] Sharifa Hodge [id number] Sharifa Hodge Notes Date Note Type Note Provider Name and Address Organization Details Recorded Time 02/17/2025 text/html hospital follow up Juan Geiger MD Attn: Accounting,[address] [facility], [place], [address], [facility] 02/17/2025 10:51:58 OBGyn Episode No OBEpisode recorded.
--- NOTE | 2025-03-05 08:35 | ED_ITS ---
HPI - General Adult General Chief complaint: Unspecified Stated complaint: from my food gets stuck in my throat Time Seen by Provider: 03/05/25 08:33 Source: patient and family Mode of arrival: ambulatory Limitations: no limitations History of Present Illness HPI narrative: 44 years old female came to the ED by private car from home with her complaining of feeling food stuck in her throat every time she eats mainly solid food for the last 3 days. She denies any fever, chills, nausea, vomiting, chest pain or shortness of breath. History of hypertension hyperlipidemia, seasonal allergy, GERD. Related Data Home Medications ?Medication ?Instructions ?Recorded ?Confirmed ?Last Taken ?Type amlodipine 5 mg tablet 5 mg PO 07/29/19 Unknown Hi story hydrochlorothiazide 12.5 mg capsule 12.5 mg PO 0 Unknown History pantoprazole 20 mg tablet,delayed mg PO 11/08/24 Unkn own History release ergocalciferol (vitamin D2) 1,250 12/21/24 Unknown H istory mcg (50,000 unit) capsule fexofenadine 180 mg tablet mg 12/21/24 Unknown Histor y (Allergy Relief (fexofenadine)) fluticasone propionate 50 intranasal 12/21/24 Unknown History mcg/actuation nasal spray,suspension ferrous sulfate 325 mg (65 mg mg 03/02/25 Unknown His tory iron) tablet (FeroSul) hydrochlorothiazide 25 mg tablet mg 03/02/25 Unknown History thyroid (pork) 90 mg tablet (MANAGER PRACTICE mg 03/02/25 Unknown H istory Thyroid) Allergies Allergy/AdvReac Type Severity Reaction Status Date / Time No Known Drug Allergies Allergy none Verified 03/05/25 07:55 Review of Systems 2 Review of Systems: All systems reviewed & are unremarkable except as noted in HPI and below PMFSH Past Medical History Medical History Hypothyroid Hypertension Surgical History Surgical History History of Family History Family History Mother Family history non-contributory Social History Social History Smoking status: Never smoker Gender identity (if verbalized by the patient): Female Spiritual care concerns: No Exam 2 Narrative: General appearance: Well-developed, well-nourished Skin: Normal color Head: Normocephalic, nontraumatic Eyes: Clear conjunctiva ENT: Oropharynx normal, ears normal, nose normal Neck: Supple, nontender Chest and respiratory: Airway patent, no respiratory distress, no accessory muscle use Heart: Regular rate/rhythm Abdomen: Soft, nontender, no organomegaly, quiet bowel sounds Vascular: Normal peripheral pulses, normal capillary refill. 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 is normal as tested, no gross motor deficit Course Vital Signs Vital signs: Vital Signs Temperature 36.8 C 03/05/25 07:53 Pulse Rate 90 03/05/25 07:53 Respiratory Rate 16 03/05/25 07:53 Blood Pressure 125/79 03/05/25 07:53 Pulse Oximetry 100 03/05/25 07:53 Oxygen Delivery Room Air 03/05/25 07:53 Temperature 36.8 C 03/05/25 07:53 Pulse Rate 74 03/05/25 12:00 Respiratory Rate 20 03/05/25 12:00 Blood Pressure 132/82 03/05/25 12:00 Pulse Oximetry 100 03/05/25 12:00 Oxygen Delivery Room Air 03/05/25 07:53 MDM MDM Narrative Medical decision making narrative: Patient came with foreign body like feeling in the throat after eating. 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 Differential Diagnosis Differential Diagnosis: As above Lab Data 03/05/25 09:42 03/05/25 10:53 Labs: Lab Results 03/05/25 03/05/25 Range/Units 09:42 10:53 WBC 5.5 (4.5-10.0) K/mm3 RBC 4.24 (4.2-5.4) M/mm3 Hgb 11.9 L (12.0-15.0) g/dL Hct 37.9 (37.0-47.0) % MCV 89.4 (80-100) fl MCH 28.1 (26-34) pg MCHC 31.4 L (32-36) g/dl RDW 14.2 (11.5-14.5) % Plt Count 282 (150-375) k/mm3 MPV 10.8 H (7.4-10.4) fl Immature Gran % (Auto) 0.2 (0-0.5) % Neut % (Auto) 80.8 H (45.5-73.1) % Lymph % (Auto) 15.4 L (18.3-44.2) % [place] % (Auto) 2.9 (2.6-8.5) % Eos % (Auto) 0.2 (0-4.4) % Baso % (Auto) 0.5 (0.2-1.2) % Lymph # (Auto) 0.84 L (0.9-3.2) K/mm3 [place] # (Auto) 0.2 (0.1-0.6) K/mm3 Eos # (Auto) 0.0 (0-0.3) K/mm3 Baso # (Auto) 0.0 (0.0-0.1) K/mm3 Abs Immat Gran (auto) 0.01 (0.00-0.031) K/mm3 Absolute Neuts (auto) 4.4 (1.3-6.7) K/mm3 Absolute Nucleated RBC 0.000 (0.0-0.012) K/mm3 Nucleated RBC % 0.0 (0.0-0.2) % Sodium 138 (137-145) mmol/L Potassium 4.0 (3.4-5.0) mmol/L Chloride 106 (98-107) mmol/L Carbon Dioxide 24 (22-30) mmol/L Anion Gap 8 (4-12) mmol/L BUN 10 (7-17) mg/dL Creatinine 0.60 L (0.7-1.0) mg/dL Estim Creat Clear Calc 113 ml/min Estimated GFR > 60 (59 - ) Glucose 65 (65-110) mg/dL Calcium 9.0 (8.4-10.2) mg/dL Total Bilirubin 0.9 (0.2-1.3) mg/dL AST 19 (14-36) U/L ALT 12 (6-35) U/L Alkaline Phosphatase 69 (38-126) U/L Total Protein 7.6 (6.3-8.2) g/dL Albumin 4.1 (3.5-5.1) g/dL Imaging Data Radiologist's impression: ITS Impressions Chest X-Ray 03/05/25 09:18 IMPRESSION: 1. No acute cardiopulmonary findings. CT neck with IV contrast showed Edematous thickening of the soft palate and uvula is a nonspecific and may be seen with infectious or inflammatory process in the appropriate clinical setting. No CT evidence of abscess or drainable fluid collection is identified. Discharge Plan Discharge Clinical Impression: Dysphagia, Seasonal allergies Patient Disposition: Home Condition: Stable Instructions: Dysphagia (ED) Additional Instructions: Return if symptoms are worsening , call Dr. Oviedo for appointment, take Tylenol as as needed for aches and pain, continue home medications. Patient Language: Zambian Prescriptions: New pantoprazole [Protonix] 40 mg tablet,delayed release (DR/EC) 40 mg PO QAM 30 Days Qty: 30 0RF prednisone 20 mg tablet 40 mg PO DAILY 5 Days Qty: 10 0RF Zyrtec 10 mg capsule 10 mg PO BID PRN (Reason: allergy symptoms) Qty: 10 0RF fluticasone propionate 50 mcg/actuation spray,suspension 2 spray intranasal ONCE Qty: 16 0RF Rx Instructions: administer into each nostril No Action ergocalciferol (vitamin D2) 1,250 mcg (50,000 unit) capsule fluticasone propionate 50 mcg/actuation spray,suspension INTRANASAL fexofenadine [Allergy Relief (fexofenadine)] 180 mg tablet pantoprazole 20 mg tablet,delayed release (DR/EC) PO ferrous sulfate [FeroSul] 325 mg (65 mg iron) tablet hydrochlorothiazide 25 mg tablet thyroid (pork) [MANAGER PRACTICE Thyroid] 90 mg tablet amlodipine 5 mg tablet 5 mg PO hydrochlorothiazide 12.5 mg capsule 12.5 mg PO Follow-up/Referrals: PHYSICIAN NOT ON STAFF,NONSTAFF [Primary Care Provider] Eduardo Cronin MD [Physician, Gastroenterology] - 03/07/25
[2025-03-05 09:47] LABS: Hematocrit 37.9 % (37.0-47.0); Hemoglobin 11.9 g/dL (12.0-15.0); Immature Granulocyte Percent A 0.2 % (0-0.5); Lymphocytes Absolute Auto 0.84 K/mm3 (0.9-3.2); Mean Corpuscular HGB Conc 31.4 g/dl (32-36); Mean Corpuscular Hemoglobin 28.1 pg (26-34); Mean Corpuscular Volume 89.4 fl (80-100); Nucleated Red Blood Cells Absolute Auto 0.000 K/mm3 (0.0-0.012); Nucleated Red Blood Cells Perc 0.0 % (0.0-0.2); Platelet Count Result 282 k/mm3 (150-375); Red Blood Count 4.24 M/mm3 (4.2-5.4); White Blood Count 5.5 K/mm3 (4.5-10.0)
[2025-03-05 11:09] LABS: Alanine Aminotransferase 12 U/L (6-35); Albumin Level 4.1 g/dL (3.5-5.1); Alkaline Phosphatase 69 U/L (38-126); Anion Gap 8 mmol/L (4-12); Aspartate Amino Transferase 19 U/L (14-36); Bilirubin,Total 0.9 mg/dL (0.2-1.3); Blood Urea Nitrogen 10 mg/dL (7-17); Calcium 9.0 mg/dL (8.4-10.2); Carbon Dioxide 24 mmol/L (22-30); Chloride 106 mmol/L (98-107); Estimated CRCL calculation 113 ml/min; Estimated Glomerular Filt Rate > 60; Glucose 65 mg/dL (65-110); Potassium 4.0 mmol/L (3.4-5.0); Sodium 138 mmol/L (137-145); Total Protein 7.6 g/dL (6.3-8.2)
[2025-03-05 12:00] VITALS: BP 132/82; PULSE 74; RESP 20; O2SAT 100
== END 2025-03-05 13:50 | disposition home or self-care (01) ==
PROVIDERS: Emergency Provider Emergency Medicine
DX: R13.10 Dysphagia, unspecified (principal); J30.2 Other seasonal allergic rhinitis; I10 Essential (primary) hypertension; E78.5 Hyperlipidemia, unspecified; E03.9 Hypothyroidism, unspecified; K21.9 Gastro-esophageal reflux disease without esophagitis
CPT/HCPCS: 36415; 70491; 71046; 80053; 85025; 99284; Q9967